=== PATIENT | female | born 1950 | race Two or more races ===

== ENCOUNTER → 2020-10-18 10:14 | Outpatient (BNVA) | payer OTHER, SELFPAY | PROVIDERS: PCP Internal Medicine; Visit Provider Hospitalist | DX: Z13.89 Encounter for screening for other disorder (principal) | CPT/HCPCS: Q3014 ==

== ENCOUNTER → 2020-12-17 09:46 | Outpatient (BNVA) | payer OTHER, SELFPAY | PROVIDERS: PCP Internal Medicine; Visit Provider Hospitalist | DX: J98.4 Other disorders of lung (principal); J45.40 Moderate persistent asthma, uncomplicated; U07.1 COVID-19 | CPT/HCPCS: 99212 ==

== ENCOUNTER → 2021-05-20 10:50 | Outpatient (BNVA) | payer OTHER, SELFPAY | PROVIDERS: PCP Internal Medicine; Visit Provider Hospitalist | DX: J98.4 Other disorders of lung (principal); J45.40 Moderate persistent asthma, uncomplicated; J98.6 Disorders of diaphragm; R91.8 Other nonspecific abnormal finding of lung field | CPT/HCPCS: 99212 ==

== ENCOUNTER 2021-07-25 11:10 | Outpatient (REF) | payer OTHER, SELFPAY ==
--- NOTE | ~2021-07-25 | XR_ITS ---
EXAMINATION: XR CHEST CLINICAL INFORMATION: Other nonspecific finding lung field COMPARISON: Previous chest CT November 2019 TECHNIQUE: 2 views of the chest were obtained. FINDINGS: The cardiac and mediastinal contours are stable. There is marked elevation of the right hemidiaphragm. There are prominent central bronchovascular markings. The lungs are otherwise clear. There is no pleural effusion or pneumothorax. There is scoliosis and multiple old mild compression fractures. XR/XR chest 2V IMPRESSION: Elevated right hemidiaphragm. Prominent central bronchovascular markings. This may be related to low lung volumes. Multiple mild old compression fractures.
== END 2021-07-25 11:11 | disposition home or self-care (01) ==
LOC: HO.XRAY 11:10
PROVIDERS: PCP Internal Medicine; Visit Provider Hospitalist
DX: J90 Pleural effusion, not elsewhere classified (principal); J98.4 Other disorders of lung; J45.40 Moderate persistent asthma, uncomplicated; J98.6 Disorders of diaphragm; J91.8 Pleural effusion in other conditions classified elsewhere; H60.90 Unspecified otitis externa, unspecified ear
CPT/HCPCS: 71046; 99212

== ENCOUNTER 2021-12-17 11:43 | Outpatient (REF) | payer OTHER, SELFPAY ==
--- NOTE | ~2021-12-17 | MM_ITS ---
EXAMINATION: BONE DENSITOMETRY CLINICAL INDICATION: Asymptomatic menopausal state. COMPARISON: Baseline BD dated 09/09/2019. TECHNIQUE: Using a [employer] DXA System (software version: 13.1) manufactured by [employer], dual-energy x-ray absorptiometry was performed of the lumbar spine and left hip. The images are of good technical quality. Summary results are attached. FINDINGS: AP SPINE L1-L4 (excluding L2 and L3): The data of L1-L4 has been changed to exclude the L2 and L3 vertebral bodies, because degenerative changes at these levels may cause overestimation of lumbar spine density. Current: BMD 0.795 g/cm2, Z-score -1.9, T-score -3.1, osteoporosis, 13.1% decrease from baseline (<5% change is not significant). Baseline: BMD 0.915 g/cm2. LEFT FEMUR, NECK: Current: BMD 0.571 g/cm2, Z-score -1.9, T-score -3.4, osteoporosis. Baseline: BMD 0.544 g/cm2. LEFT FEMUR, TOTAL: Current: BMD 0.675 g/cm2, Z-score -1.4, T-score -2.6, osteoporosis, 3.7% increase from baseline (<5% change is not significant). Baseline: BMD 0.651 g/cm2. IDENTIFIED RISK FACTORS: Rheumatoid arthritis, osteoporosis, renal, recurrent falls, secondary osteoporosis, history of fracture (adult), menopause. HISTORY OF FRACTURE: Wrist. MEDICATIONS: Calcium supplements or multivitamin, vitamin D. MM/XR DEXA axial skeleton IMPRESSION: 1. DIAGNOSIS: Osteoporosis based on the lowest T-score value of -3.4 in the applying World Health Organization criteria. 2. 10-YEAR FRACTURE RISK PREDICTION, FRAX: According to the guidelines, FRAX calculation should only be performed on patients in the osteopenia bone density category. Therefore, FRAX was not performed on this patient. 3. Treatment Recommendations: NOF guidelines recommend consideration for treatment in postmenopausal women and men age 50 and older presenting with the following: -A hip or vertebral (clinical or morphometric) fracture. -T-score less than or equal to -2.5 at the femoral neck or spine after appropriate evaluation to exclude secondary causes. -Low bone mass at the hip or spine and a 10-year fracture probability by FRAX of greater than or equal to 3% for hip fracture or greater than or equal to 20% for major osteoporotic fracture based on the [place] adapted WHO algorithm. 4. Other Recommendations: All treatment decisions require clinical judgment and consideration of individual patient factors, including patient preferences, comorbidities, previous drug use, risk factors not captured in the FRAX model (e.g. frailty, falls, vitamin D deficiency, increased bone turnover, interval significant decline in bone density) and possible under or overestimation of fracture risk by FRAX. Additional medical evaluation for secondary cause of low bone mineral density may be appropriate. FUTURE SCAN RECOMMENDATION: People with diagnosed cases of osteoporosis or at high risk for fracture should have regular bone mineral density tests. For patients eligible for Medicare, routine testing is allowed once every 2 years. The testing frequency can be increased to one year for patients who have rapidly progressing disease, those who are receiving or discontinuing medical therapy to restore bone mass, or have additional risk factors.
--- NOTE | ~2021-12-17 | MM_ITS ---
EXAMINATION: MM SCREENING DIGITAL BREAST TOMOSYNTHESIS, BILATERAL CLINICAL INFORMATION: Screening. Asymptomatic. The lifetime risk of breast cancer based on the Tyrer-Cuzick Model is under 2%. COMPARISON: Mammography: 09/14/2019, 09/01/2019 (new baseline). TECHNIQUE: Digital breast tomosynthesis is performed in both the craniocaudal and mediolateral oblique views along with computer-aided detection (CAD). Synthesized 2D images are generated from the tomosynthesis. Additional exaggerated right CC, left CC, left MLO views are provided. FINDINGS: There are scattered areas of fibroglandular density (ACR BI-RADS breast composition Category b). There are no significant masses, abnormal calcifications, or other abnormalities. Parenchymal pattern is similar to prior exam. The axilla and skin contours are unremarkable. MM/MM tomosynthesis screening BI IMPRESSION: No mammographic evidence of malignancy. ASSESSMENT: BI-RADS 1: Negative RECOMMENDATION: Routine annual mammography screening. This patient's information was entered into a reminder system with a target due date for their next mammogram.
== END 2021-12-17 11:44 | disposition home or self-care (01) ==
LOC: HO.MAMMO 11:43
PROVIDERS: PCP Internal Medicine; Visit Provider Internal Medicine
DX: Z12.31 Encounter for screening mammogram for malignant neoplasm of breast (principal); Z13.820 Encounter for screening for osteoporosis; Z78.0 Asymptomatic menopausal state; M81.0 Age-related osteoporosis without current pathological fracture
CPT/HCPCS: 77063; 77067; 77080

== ENCOUNTER 2021-12-19 11:02 | Outpatient (REF) | payer OTHER, SELFPAY ==
[2021-12-19 12:09] LABS: ABG Refer to POC result
[2021-12-19 12:10] LABS: ABG Base Excess 7.1 mmol/L; ABG HCO3 32 mmol/L (22-26); ABG pCO2 47 mmHg (32-45); ABG pH 7.43 (7.35-7.45); ABG pO2 41 mmHg (83-108)
== END 2021-12-19 11:03 | disposition home or self-care (01) ==
LOC: HO.LAB 11:02
PROVIDERS: PCP Internal Medicine; Visit Provider Hospitalist
DX: J98.4 Other disorders of lung (principal); J44.9 Chronic obstructive pulmonary disease, unspecified; R91.8 Other nonspecific abnormal finding of lung field; J98.6 Disorders of diaphragm; J96.20 Acute and chronic respiratory failure, unspecified whether with hypoxia or hypercapnia; R07.82 Intercostal pain
CPT/HCPCS: 82803; 99212

== ENCOUNTER 2021-12-20 11:45 | Outpatient (REF) | payer OTHER, SELFPAY ==
--- NOTE | ~2021-12-20 | XR_ITS ---
EXAMINATION: XR CHEST CLINICAL INFORMATION: Acute on chronic respiratory failure COMPARISON: Chest x-ray 07/25/2021 TECHNIQUE: 2 views of the chest were obtained. FINDINGS: Cardiac silhouette is normal in size. Similar prominent asymmetric elevation of the right hemidiaphragm. There is no gross lobar consolidation. No pleural effusion or pneumothorax. Mild degenerative changes of the spine. A few mild compression deformities of the thoracic spine are again noted. XR/XR chest 2V IMPRESSION: Stable examination demonstrating no acute pulmonary pathology.
[2021-12-20 12:01] LABS: MANUAL DIFF FLAG NO
[2021-12-20 12:18] LABS: Basophils Percent Auto 0.4 % (0-2); Eosinophils Absolute Auto 0.1 X10*3/uL (0.0-0.4); Eosinophils Percent Auto 1.3 % (0-4); Hematocrit 36.9 % (37.0-47.0); Hemoglobin 12.5 g/dl (12.0-16.0); Imm Gran Abs Auto 0.01 X10*3/uL (0.00-0.03); Imm Gran Pct Auto 0.2 % (0.0-0.4); Lymphocytes Absolute Auto 1.1 X10*3/uL (1.2-4.9); Lymphocytes Percent Auto 21.3 % (20-40); Mean Corpuscular HGB Conc 33.9 g/dl (31.0-35.0); Mean Corpuscular Hemoglobin 28.8 pg (27.0-33.0); Mean Platelet Volume 12.8 fL (9.4-12.3); Monocytes Absolute Auto 0.5 X10*3/uL (0.1-1.2); Monocytes Percent Auto 8.8 % (2-11); Neutrophils Absolute Auto 3.6 x10*3/uL (2.0-8.3); Platelet Count 114 X10*3/uL (160-400); Red Blood Count 4.34 X10*6/uL (4.20-5.50); Red Cell Distribution Width 13.4 % (11.0-16.0); White Blood Count 5.3 X10*3/uL (4.8-10.8)
[2021-12-20 12:24] LABS: D Dimer High Sensitivity 158 NG/ML
[2021-12-20 12:42] LABS: Anion Gap 12 (12-20); Blood Urea Nitrogen 37 mg/dL (9-16); Calcium 10.3 mg/dL (8.4-10.2); Carbon Dioxide 33 mmol/L (22-29); Chloride 104 mmol/L (96-108); Estimated Glomerular Filt Rate 26; Glucose Random 170 mg/dL (60-115); Potassium 4.2 mmol/L (3.3-5.1); Sodium 145 mmol/L (135-145)
[2021-12-20 12:56] LABS: Erythrocyte Sedimentation Rate 6 MM/HR (0-20)
== END 2021-12-20 11:46 | disposition home or self-care (01) ==
LOC: HO.XRAY 11:45
PROVIDERS: PCP Internal Medicine; Visit Provider Hospitalist
DX: J96.20 Acute and chronic respiratory failure, unspecified whether with hypoxia or hypercapnia (principal)
CPT/HCPCS: 36415; 71046; 80048; 85025; 85379; 85652

== ENCOUNTER → 2022-04-24 11:05 | Outpatient (BNVA) | payer OTHER, SELFPAY | PROVIDERS: PCP Internal Medicine; Visit Provider Hospitalist | DX: J44.9 Chronic obstructive pulmonary disease, unspecified (principal); R51.9 Headache, unspecified; J98.4 Other disorders of lung; J98.6 Disorders of diaphragm; R91.8 Other nonspecific abnormal finding of lung field; G47.00 Insomnia, unspecified | CPT/HCPCS: 99212 ==

== ENCOUNTER 2022-05-09 14:07 | Outpatient (REF) | payer OTHER, SELFPAY ==
--- NOTE | ~2022-05-09 | US_ITS ---
EXAMINATION: US THYROID CLINICAL INFORMATION: Nontoxic multinodular goiter. COMPARISON: Ultrasound soft tissue head/neck thyroid dated 02/16/2020. TECHNIQUE: Linear transducer grayscale and color Doppler examination with attention to the region of the thyroid. FINDINGS: SIZE: Measurements of the thyroid lobes and nodules are given in sagittal, anteroposterior and transverse dimensions respectively. Right Thyroid Lobe: 3.8 x 1.7 x 1.4 cm, volume 4.7 mL. Previously 3.7 x 1.5 x 1.6 cm, volume 4.6 mL. Parenchyma: The gland echotexture is homogeneous. Thyroid vascularity is normal. Left Thyroid Lobe: 3.2 x 1.2 x 1.5 cm, volume 3.1 mL. Previously 3.0 x 1.0 x 1.5 cm, volume 2.4 mL. Parenchyma: The gland echotexture is homogeneous. Thyroid vascularity is normal. Isthmus: 0.2 cm in maximum AP dimension. Previously 0.3 cm. Estimated total number of nodules greater than or equal to 1 cm: 0. 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 Location: Left mid. Size: 0.7 x 0.5 x 0.7 cm, volume 0.13 mL. Previously: 0.6 x 0.4 x 0.5 cm, volume 0.06 mL. Nodule characteristics: Composition: Mixed cystic and solid (1). Echogenicity: Hypoechoic (2). Shape: Not taller than wide (0). Margins: Smooth (0). Echogenic Foci: None (0). ACR TI-RADS total points: 3 ACR TI-RADS category: 3 Significant change in size (>/= 20% in 2 dimensions and minimal increase of 2 mm or 50% or greater increase in volume): No Change in features: No Change in ACR TI-RADS risk category: No NODES: No lymphadenopathy is seen in the tissue surrounding the thyroid gland. US/US thyroid IMPRESSION: Small thyroid gland. Stable left thyroid nodule.. ACR TI-RADS RECOMMENDATION REFERENCE: Ultrasound-guided fine-needle aspiration, followup ultrasound, no further follow up. * TR1 (0 point) and TR 2 (2 points): No FNA or follow up * TR3 (3 points): FNA if more than or equal to 2.5 cm in maximum dimension, followup ultrasound in 1, 3 and 5 years if 1.5 to 2.4 cm in maximum dimension. * TR4 (4-6 points): FNA if more than or equal to 1.5 cm in maximum dimension, followup ultrasound in 1, 2, 3 and 5 years if 1 to 1.4 cm in maximum dimension. * TR5 (more than or equal to 7 points): FNA if more than or equal to 1 cm in maximum dimension, followup ultrasound every year for 5 years if 0.5 to 0.9 cm in maximum dimension. * TR3, TR4 or TR5 nodules that are below the size threshold for follow up receive no follow up.
== END 2022-05-09 14:08 | disposition home or self-care (01) ==
LOC: HO.US 14:07
PROVIDERS: Visit Provider Internal Medicine Endocrinology, Diabetes & Metabolism
DX: E04.2 Nontoxic multinodular goiter (principal)
CPT/HCPCS: 76536

== ENCOUNTER 2022-05-16 11:27 | Outpatient (REF) | payer OTHER, SELFPAY ==
[2022-05-16 13:20] LABS: Free T4 (Free Thyroxine) 0.92 ng/dL (0.71-1.85); Thyroid Stimulating Hormone 1.38 uIU/mL (0.32-4.0)
== END 2022-05-16 11:28 | disposition home or self-care (01) ==
LOC: HO.LAB 11:27
PROVIDERS: Visit Provider Internal Medicine Endocrinology, Diabetes & Metabolism
DX: E04.2 Nontoxic multinodular goiter (principal)
CPT/HCPCS: 36415; 84439; 84443

== ENCOUNTER → 2022-05-20 09:35 | Outpatient (BNVA) | payer OTHER, SELFPAY | PROVIDERS: PCP Internal Medicine; Visit Provider Internal Medicine Endocrinology, Diabetes & Metabolism | DX: E04.1 Nontoxic single thyroid nodule (principal) | CPT/HCPCS: 99212 ==

== ENCOUNTER 2022-06-27 12:15 | Outpatient (REF) | payer OTHER, SELFPAY ==
--- NOTE | ~2022-06-27 | XR_ITS ---
EXAMINATION: XR RIBS, RIGHT CLINICAL INFORMATION: Pleurodynia COMPARISON: None TECHNIQUE: 3 views of the right ribs were obtained. FINDINGS: Lungs are clear. No consolidation, pneumothorax, or pleural effusion. The cardiomediastinal silhouette and pulmonary vasculature are normal. Osseous structures are unremarkable. Ribs are intact. No fractures are identified. XR/XR ribs RT min 3V w CXR1V IMPRESSION: Unremarkable examination.
--- NOTE | ~2022-06-27 | XR_ITS ---
EXAMINATION: XR FOREARM, RIGHT CLINICAL INFORMATION: Right forearm pain COMPARISON: None TECHNIQUE: AP and lateral views of the right forearm were obtained. FINDINGS: The bones and soft tissues are normal. No fracture. Imaged portions of the elbow and wrist are unremarkable. XR/XR forearm RT 2V IMPRESSION: Normal right forearm.
--- NOTE | ~2022-06-27 | XR_ITS ---
EXAMINATION: XR KNEE, LEFT CLINICAL INFORMATION: Pain COMPARISON: None TECHNIQUE: Four views of the left knee. FINDINGS: Tiny tricompartmental osteophytes. No acute fracture or dislocation. No large suprapatellar effusion. XR/XR knee LT 4V IMPRESSION: Mild osteoarthritis of the left knee joint.
== END 2022-06-27 12:16 | disposition home or self-care (01) ==
LOC: HO.XRAY 12:15
PROVIDERS: Absent Provider Internal Medicine; PCP Internal Medicine; Visit Provider Emergency Medicine
DX: M25.562 Pain in left knee (principal); M79.631 Pain in right forearm; R07.81 Pleurodynia
CPT/HCPCS: 71101; 73090; 73564

== ENCOUNTER → 2022-11-10 10:51 | Outpatient (BNVA) | payer OTHER, SELFPAY | PROVIDERS: PCP Internal Medicine; Visit Provider Hospitalist | DX: J98.4 Other disorders of lung (principal); J98.6 Disorders of diaphragm; J44.9 Chronic obstructive pulmonary disease, unspecified; R91.8 Other nonspecific abnormal finding of lung field; G47.00 Insomnia, unspecified | CPT/HCPCS: 99212 ==

== ENCOUNTER 2022-11-21 10:53 | Outpatient (REF) | payer OTHER, SELFPAY ==
--- NOTE | ~2022-11-21 | CT_ITS ---
EXAMINATION: CT CHEST WITHOUT CONTRAST CLINICAL INFORMATION: Abnormal chest radiograph. COMPARISON: Chest radiograph dated 07/07/2022; CT chest dated 11/21/2019. TECHNIQUE: Multidetector volumetric CT imaging of the chest was done. Axial MIP volume rendering provided. Sagittal and coronal reformatted images were obtained. This CT examination was performed using dose optimization techniques as appropriate, variously including the following: *Automated exposure control *Adjustment of mA and/or kV according to patient size (this includes techniques or standardized protocols for targeted exams where dose is matched to indication/reason for exam; i.e. extremities or head) *Use of iterative reconstruction technique DLP: 192 mGy-cm FINDINGS: DUMP GRADER: There is marked elevation of the right hemidiaphragm. The lungs are symmetrically well-expanded and grossly clear. LUNGS: Within the bilateral lungs, best appreciated on the MIP sequence, there are a few small scattered 1-2 mm noncalcified and calcified nodules. These are most pronounced at the posterior bases. The appearance is stable from 11/21/2019. No new nodule, mass, infiltrate or groundglass opacity is seen. There is mild linear scar/subsegmental atelectasis seen within the right upper and lower lobes and at the lateral right base. There is no associated focal airway obstruction. This appearance is also stable from 11/21/2019. No generalized small airway thickening is seen. The central airways appear patent. MEDIASTINUM: The mediastinum is normal. CORONARY ARTERY CALCIFICATION: Very mild. PLEURA: There is no pleural effusion. No pleural mass or thickening. AXILLA: No lymphadenopathy. UPPER ABDOMEN: The adrenal glands are unremarkable. The right kidney again shows persistent lobulations. OSSEOUS STRUCTURES: There is multi-level lower thoracic and upper lumbar degenerative disc disease and spondylosis. A stable mild T12 anterior wedge compression fracture is seen. There are stable sclerotic bone islands within the T12 vertebral body. No acute or aggressive osseous abnormality is seen. CT/CT chest wo IV con IMPRESSION: There is stable marked elevation of the right hemidiaphragm. There are stable scattered foci of scar/subsegmental atelectasis without associated focal airway obstruction. Benign, stable scattered bilateral tiny calcified and noncalcified lung granulomas are seen. No mass, infiltrate or groundglass opacity is seen. There is no thoracic lymphadenopathy or pleural effusion. No aggressive osseous lesion is seen. Fleischner guidelines were followed.
== END 2022-11-21 10:54 | disposition home or self-care (01) ==
LOC: HO.CT 10:53
PROVIDERS: PCP Internal Medicine; Visit Provider Hospitalist
DX: J98.6 Disorders of diaphragm (principal); J98.4 Other disorders of lung; R93.89 Abnormal findings on diagnostic imaging of other specified body structures
CPT/HCPCS: 71250

== ENCOUNTER 2023-02-18 14:00 | Outpatient (RCR) | payer OTHER, SELFPAY ==
[2023-01-30 10:02] VITALS: O2SAT 92
--- NOTE | 2023-01-30 14:19 | MHC.PT.EP ---
[facility] [place] Office [place] Office [place] Office [address] [phone] F: [phone] F: [phone] F: [phone] F: [phone] Physical Therapy Plan of Care Date of Evaluation: Date of Surgery: Diagnosis: Acute pain of LEFT knee, osteoarthrits Assessment: Patient is a 72 y.o. guinean speaking female who is referred to PT by Dr. Suzanna Dao with Dx of acute LEFT knee pain, osteoarthritis. Patient also presents with multiple comorbididies of CKC stage 3, DMT2 with peripheral neuropathy, restrictive lung disease with asthma on supplemental oxygen (2L [place]), that will effect her participation in PT. He oxygen levels will be monitored while performing exercises. 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 Patient impairments include pain, weakness, limited ROM, antalgic gait. Patient current functional limitations are bend/squat, walking, steps (has 3 MACY with railings), sit to stand after prolonged sitting. Patient will benefit from skilled PT to address aforementioned impairments and functional limitations to preserve current capabilities and prevent deterioration of symptoms. Frequency and Duration: The patient will be seen 1x/week for 4 weeks Short Term Goals: 2 weeks Patient demonstrates consistency and independence with HEP to self manage symptoms. Intermediate Goals: 4 weeks Patient presents with increased L knee flexion 105 degrees to be able to perform sit to stand from low surface with arm rests. Patient presents with increased L knee extension strength 4+/5 to be able to ascned/descend 3 steps with railings. Treatment Plan: Modalities to reduce pain, spasms and effusion. Manual therapy to restore motion and function. Therapeutic exercise to improve strength and flexibility. Neuromuscular re-education for posture and balance. Therapeutic activities to return to functional activities of daily living. Electronically signed by: Blake Sanchez, PT, DPT Please sign and return to therapist. Thank you for your referral.
--- NOTE | 2023-04-21 14:01 | MHC.PT.DC ---
[facility] [place] Office [place] Office [place] Office [address]itha Nagy [address] [phone] F: [phone] F: [phone] F: [phone] F: [phone] Physical Therapy Discharge Report Diagnosis: Acute pain of LEFT knee, osteoarthrits Date of Surgery: Date of Evaluation: 01/30/23 Date of Discharge: 04/21/23 Treatments to Date: 3 Cancellations to Date: 1 No Shows to Date: 1 Discharge Status: Patient Elected to Stop Visit Non-compliance Discharge Summary: Patient was last seen for PT on 02/25/23, did not complete treatment because she s/o R hallux pain after she had toenail removed. She ceased attending PT on her own accord. She has independent HEP to manage her knee OA. Electronically signed by: Blake Sanchez, PT, DPT Please sign and return to therapist. Thank you for your referral.
== END 2023-04-21 14:02 | disposition home or self-care (01) ==
LOC: HO.PT 14:00
PROVIDERS: PCP Internal Medicine; Visit Provider Internal Medicine
DX: M25.562 Pain in left knee (principal)
CPT/HCPCS: 97110; 97163; 97535

== ENCOUNTER 2023-05-15 10:58 | Outpatient (AMB) | payer OTHER, SELFPAY ==
[2023-05-15 11:14] VITALS: PULSE 63; O2SAT 94; BMI 33.3
--- NOTE | 2023-05-15 11:14 | MHC.OFFVIS ---
Intake Vital Signs 05/15/23 11:14 Height 5 ft 2 in Weight 182 lb BMI 33.3 Pulse 63 Pulse Source Pulse Oximeter Pulse Oximetry (%) 94 Oxygen Delivery Method Room Air Comment 2 Liters Oxygen([employer]) Intake Visit Reasons: copd Button Clamper Required: No Allergies ampicillin Allergy (Severe, Verified 05/15/23 11:16) Rash and Hives aspirin Allergy (Severe, Verified 05/15/23 11:16) Rash and Hives clopidogrel [Plavix] Allergy (Severe, Verified 05/15/23 11:16) Rash and Hives PCN Allergy (Severe, Uncoded 05/15/23 11:16) Rash and Hives HPI HPI Comments History of Present Illness Details The patient is a 72-year-old woman with a known history of asthma in addition to hypertension. Apparently she has been getting dizziness and headaches. She was referred to the [facility] ED for further evaluation. There was back in August 2018. When she was there she was found to be hypoxic down to 81%. She was placed on oxygen. She is getting her oxygen through [facility]. She has been using the oxygen 24-7. She has been getting some dryness of her nose. We did review her x-ray that she had there with significantly elevated right hemidiaphragm. She is not aware of any injuries or surgeries to her thoracic area. She denies any falls or trauma to the right side. She denies choking or any difficulty with cough. The patient also had an echocardiogram which she was noted to have some trivial valvular disease in addition to hypertrophic left ventricle with diastolic dysfunction. She does have lower extremity edema. The patient did have pulmonary function studies recently demonstrating no obstruction in on a severe diffusion impairment. However, she was unable to perform lung volumes. She also underwent a sleep study demonstrating she has periodic limb movement and evidence of hypoxia but no evidence of any sleep apnea.The CT scan of the chest demonstrated a significantly elevated right hemidiaphragm suggesting either a paralyzed diaphragm or severed phrenic nerve. We did talk about potentially performing a sniff test in the near future once the COVID-19 virus resolved. In the meantime the patient is to continue taking walks and work on deep breathing exercises. She also has a thyroid nodule that was calcified in addition to other calcified nodular densities in other organs. She will follow-up with her primary care doctor. We did review again her sleep study and she is not qualify for CPAP therapy which is also good. However, she does have periodic leg movement and does need oxygen supplementation. 12/17/2020 the patient is here for pulmonary follow-up visit. Overall the patient has been doing better. She continues to use the oxygen on 2 L continuous 24 hours today. 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 However after many months she has not heard anything from the [employer] company. A good result to the incomplete myself and they will make arrangements soon in order to test her for the pulsed valve. The patient continues with recurrent respiratory therapy which appears to be effective for. She has not required any prednisone or antibiotics. She did recover from COVID-19. She is hopefully getting the vaccine sometime in January once she completes 3 months from her initial illness. 05/20/2021 the patient is here for a pulmonary follow-up visit. Since we last spoke the patient was admitted to the hospital with altered mental status. She was found to be significant Hypoglycemic. During that evaluation the patient did have a repeat chest x-ray demonstrating persistent elevations of the right hemidiaphragm in addition to that airspace disease. This is resulting worsening respiratory symptoms. She continues to have shortness of breath specially when she lays flat symptoms to worsen. She does continue with the oxygen at 2 L. She is wondering about getting a portable oxygen concentrator. She did have testing before which limited her axis to conserving device. Will really request a repeat conserving device in view of her request. 07/25/2021 the patient is here for a pulmonary follow-up visit. The patient overall has been feeling better. The oxygen therapy has been affecting beneficial. She is doing better with the smaller conserving device oxygen tanks. The patient continues to use her Symbicort. Although, she says she did not use it regularly. I did recommend that she use it Twice a day to help with her respiratory capacity. The patient did have an abnormal chest x-ray during our last visit back in May. Will have her have a repeat chest x-ray at this time. If her x-ray continues to be abnormal then will request a CT scan of the chest. The patient does have lower extremity edema. We talked about the importance of compression stockings and keeping them elevated. Otherwise the patient is doing well she will follow-up in 6-8 months. Again if her x-ray is abnormal I will add a known to have a CT scan of the chest. 12/19/2021 the patient is here for a pulmonary follow-up visit. She is here with her daughter. Apparently she had been traveling to [place] and she was with family for. At time. She recently arrived and her daughter noticed that she had been increasingly more confused. She also has been more drowsy. She has been using her oxygen at 2 L. She did have blood work sometime ago demonstrating elevated bicarb level. Therefore based on her history of obstructive airway disease and chronic respiratory failure we had her undergo a blood gas. Patient had a normal acid-base status. However her pCO2 was slightly elevated at 47 mmHg in addition to a critically low partial pressure of oxygen of 42 mmHg. This is significantly low. This appears to have been a arterial stick. Good having mixed with some venous still potentially could explain the symptoms of altered mental status. I did call the daughter and asked her to increase the oxygen to 4 L. She will go for blood work including a D-dimer to assess for risk of blood clots. Her last chest x-ray was from 2020 demonstrating an elevated hemidiaphragm. She was supposed to have a sniff study but she did not have it. I will have her get a chest x-ray when she comes in for the blood work as well. 04/24/2022 the patient is here for a pulmonary follow-up visit. She is doing a lot better from a respiratory status. Her oxygenation has been much better. We had increased her oxygen flow due to a very low PE able to when her blood gas. But she seems to be doing a lot better. On 4 L pulse she is up to 99%. Therefore we took her off the oxygen and she was able to maintain around 90% pulse ox. Then she was ambulated in desaturated down to 88% on room air. On 2 L pulse she was able to stay up to 94% in therefore the patient is seems to be doing better overall. The patient on has a hard time with oxygen tanks even with a conserving valve. The hard for her to handle and cumbersome. The patient does not have the ability of good portability outside of the home due to her elements in her inability to handle the oxygen tank. Therefore, I will request a battery operated portable oxygen concentrator for her specially since she is doing better and only needs 2 L pulse. She does complaint of a headache mainly in the back. She has been evaluated by Neurology. She feels a pulsating sensation. She has a hard time sleeping. She is using gabapentin but only 100 mg. Therefore will increase that dose 300 mg to help with her sleeping hopefully help his with headaches. She continues use her respiratory therapy with good effect. 11/10/2022 the patient is here for a pulmonary follow-up visit. The patient overall has been feeling better. She is using the oxygen with good response. She did not qualify for the POC because she really does not need the house that much. Still, she is getting benefit from the oxygen supplementation. I did request that she can take off her oxygen at rest and check her oxygen numbers. If they are above 92% she can take a break from the oxygen supplementation. She we did review her last chest x-ray that she had back in June 2023 after a fall demonstrating persistent elevation of the right hemidiaphragm significantly. This chest x-ray continues to be abnormal. The question is that she has any airway obstructions therefore the only way of finding out is to do a CT scan to assess the abnormal chest x-ray. Will follow-up with a CT scan at this time. She continues use respiratory meds with good effect. 05/15/2023 the patient is here for a pulmonary follow-up visit. Overall the patient has been doing relatively well. She continues use the oxygen with good effect. The patient still having issues at nighttime with sleep. She is been on 300 mg of gabapentin. Will go ahead and increase it slightly to 400 mg. she should take it 1 hour before sleep. The patient also had a CT scan of the chest which we personally reviewed from back in November 2022. the patient does have a significantly elevated diaphragm and some evidence of atelectasis and calcified pulmonary nodules. Otherwise no other additional CT scans warranted. She continues use her respiratory medications. She does have shortness of breath with activity. [id number] severity. The inhalers are effective in beneficial. She will continue them at this time. The oxygen also has been affecting beneficial and she will also continue it. [facility] Medical History (Updated 05/17/23 @ 22:20 by Rip Louie MD) Abnormal chest x-ray Thyroid nodule Frequent headaches Insomnia Asthma-COPD overlap syndrome Abnormality of lung on CXR Elevated diaphragm Pleural effusion Asthma Restrictive lung disease Surgical History (Updated 05/20/22 @ 09:46 by MAT Finley) History of surgery History of carpal tunnel surgery History of hysterectomy History of inguinal hernia repair Family History (Updated 05/20/22 @ 09:49 by MAT Finley) Mother No problems noted. Father No problems noted. Social History (Updated 05/20/22 @ 09:50 by MAT Finley) Alcohol intake: never Patient Tobacco Use Status: Never used Tobacco Review of Systems Const Reports difficulty sleeping, Reports fatigue and Denies night sweats ENT Denies change in voice, Denies lip swelling, Denies mouth pain and Denies tongue swelling Card Denies chest pain and Reports dyspnea on exertion Resp Reports cough and Reports dyspnea on exertion GI Denies abdominal pain Musc Denies no additional complaints Neuro Denies confusion Psych Denies no additional complaints and Denies confusion Endo Reports fatigue Lee/Lymph Denies easy bleeding and Denies lymphadenopathy Aller/Immun Denies lip swelling and Denies tongue swelling Physical Exam Vital Signs: Last Vital Signs Pulse 63 05/15/23 11:14 Pulse Ox 94 05/15/23 11:14 Oxygen Delivery Method Room Air 05/15/23 11:14 BMI result Body Mass Index 33.3 Const General: No confusion Orientation/consciousness: No confusion Neck Neck: Yes normal visual inspection, Yes full ROM and Yes no lymphadenopathy Chest Chest palpation & inspection: normal inspection of the chest and tenderness rib, pectoral muscle, costochondral junction and costal cartilage Breast/axilla inspection: abnormal inspection of the axilla (tender) Resp Auscultation: no crackles, no rales, no rhonchi, no wheezes and diminished lung sounds Cardio Rate: regular rate Rhythm: regular rhythm Heart sounds: S1 normal heart sound present and S2 normal heart sound present GI Palpation (GI): Soft to palpation and nontender Auscultation: normal bowel sounds Skin General skin exam: rashes and/or lesions noted Neuro General: No confusion Results Reviewed Results Reviewed: [address] [address] [address] Scan Report Signed Patient: Aminata Shaver MR#: [id number] : 1950 Acct:[id number] Age/Sex: 72 / F ADM Date: 11/21/22 Loc: HO.CT Attending Dr: Rip Louie MD Ordering Physician: Rip Louie MD Date of Service: 11/21/22 Procedure(s): CT chest wo IV con Accession Number(s): [id number] cc: Rip Louie MD~ EXAMINATION: CT CHEST WITHOUT CONTRAST CLINICAL INFORMATION: Abnormal chest radiograph. COMPARISON: Chest radiograph dated 07/07/2022; CT chest dated 11/21/2019. TECHNIQUE: Multidetector volumetric CT imaging of the chest was done. Axial MIP volume rendering provided. Sagittal and coronal reformatted images were obtained. This CT examination was performed using dose optimization techniques as appropriate, variously including the following: *Automated exposure control *Adjustment of mA and/or kV according to patient size (this includes techniques or standardized protocols for targeted exams where dose is matched to indication/reason for exam; i.e. extremities or head) *Use of iterative reconstruction technique DLP: 192 mGy-cm FINDINGS: FUEL QUALITY TECH: There is marked elevation of the right hemidiaphragm. The lungs are symmetrically well-expanded and grossly clear. LUNGS: Within the bilateral lungs, best appreciated on the MIP sequence, there are a few small scattered 1-2 mm noncalcified and calcified nodules. These are most pronounced at the posterior bases. The appearance is stable from 11/21/2019. No new nodule, mass, infiltrate or groundglass opacity is seen. There is mild linear scar/subsegmental atelectasis seen within the right upper and lower lobes and at the lateral right base. There is no associated focal airway obstruction. This appearance is also stable from 11/21/2019. No generalized small airway thickening is seen. The central airways appear patent. MEDIASTINUM: The mediastinum is normal. CORONARY ARTERY CALCIFICATION: Very mild. PLEURA: There is no pleural effusion. No pleural mass or thickening. AXILLA: No lymphadenopathy. UPPER ABDOMEN: The adrenal glands are unremarkable. The right kidney again shows persistent lobulations. OSSEOUS STRUCTURES: There is multi-level lower thoracic and upper lumbar degenerative disc disease and spondylosis. A stable mild T12 anterior wedge compression fracture is seen. There are stable sclerotic bone islands within the T12 vertebral body. No acute or aggressive osseous abnormality is seen. CT/CT chest wo IV con IMPRESSION: There is stable marked elevation of the right hemidiaphragm. There are stable scattered foci of scar/subsegmental atelectasis without associated focal airway obstruction. Benign, stable scattered bilateral tiny calcified and noncalcified lung granulomas are seen. No mass, infiltrate or groundglass opacity is seen. There is no thoracic lymphadenopathy or pleural effusion. No aggressive osseous lesion is seen. Fleischner guidelines were followed. Dictated By: Perry Marti MD Signed By: <Electronically signed by Perry Marti MD in OV> 12/02/22 1116 DD/ 1118 TD/TT: Spa Associate: EDDY Assessment & Plan Assessment & Plan (1) Restrictive lung disease: Code(s): J98.4 - Other disorders of lung (2) Elevated diaphragm: Code(s): J98.6 - Disorders of diaphragm (3) Abnormality of lung on CXR: Code(s): R91.8 - Other nonspecific abnormal finding of lung field (4) Asthma-COPD overlap syndrome: Code(s): J44.9 - Chronic obstructive pulmonary disease, unspecified (5) Insomnia: Code(s): G47.00 - Insomnia, unspecified Qualifiers: Insomnia type: primary Qualified Code(s): F51.01 - Primary insomnia Plan Continue Symbicort BID oxygen 2 Liters/pulse with activity and 2L with sleep SHEY as needed increase gabapentin 400 mg p.o. q.h.s. Follow up 6 months Medications: New albuterol sulfate 2.5 mg (3 mL) inhalation BID 30 days 90 mL 11RF J44.9 - Chronic obstructive pulmonary disease, unspecified gabapentin 400 mg PO BEDTIME 30 days 30 caps 7RF Changed From albuterol sulfate 90 mcg/actuation inhalation To albuterol sulfate 90 mcg/actuation 1 puff inhalation Q6H PRN 8.5 grams 11RF shortness of breath or wheezing From budesonide-formoterol 160-4.5 mcg/actuation (Symbicort) 2 puffs inhalation BID 90 days 3 ea 1RF J98.4 - Other disorders of lung To budesonide-formoterol 160-4.5 mcg/actuation (Symbicort) 2 puffs inhalation BID 30 days 1 ea 11RF J98.4 - Other disorders of lung Coding Level of Care Code Est Pt Level 4 (45877) Diagnoses Restrictive lung disease J98.4 Elevated diaphragm J98.6 Abnormality of lung on CXR R91.8 Asthma-COPD overlap syndrome J44.9 Primary insomnia F51.01 Insomnia type: primary Time Spent (min) 17
== END 2023-05-15 11:38 | disposition home or self-care (01) ==
PROVIDERS: PCP Internal Medicine; Visit Provider Hospitalist
DX: J98.4 Other disorders of lung (principal); J98.6 Disorders of diaphragm; R91.8 Other nonspecific abnormal finding of lung field; J44.9 Chronic obstructive pulmonary disease, unspecified; F51.01 Primary insomnia
CPT/HCPCS: 99214

== ENCOUNTER → 2023-05-15 10:58 | Outpatient (BNVA) | payer OTHER, SELFPAY | PROVIDERS: Visit Provider Hospitalist | DX: J44.9 Chronic obstructive pulmonary disease, unspecified (principal); J98.4 Other disorders of lung; J98.6 Disorders of diaphragm; R91.8 Other nonspecific abnormal finding of lung field; F51.01 Primary insomnia; Z79.899 Other long term (current) drug therapy | CPT/HCPCS: 99212 ==

== ENCOUNTER 2023-09-24 13:20 | Outpatient (REF) | payer OTHER, SELFPAY ==
--- NOTE | ~2023-09-24 | US_ITS ---
EXAMINATION: US THYROID CLINICAL INFORMATION: Thyroid nodule followup. COMPARISON: Thyroid ultrasound 05/09/2022 and 02/16/2020. TECHNIQUE: Linear transducer grayscale and color Doppler examination with attention to the region of the thyroid. FINDINGS: SIZE: Measurements of the thyroid lobes and nodules are given in sagittal, anteroposterior and transverse dimensions respectively. Right Thyroid Lobe: 4.5 x 1.7 x 1.7 cm, volume 6.7 mL. Previously 3.8 x 1.7 x 1.4 cm, volume 4.7 mL. Parenchyma: The gland echotexture is homogeneous. Thyroid vascularity is normal. Left Thyroid Lobe: 4.0 x 1.6 x 1.4 cm, volume 4.9 mL. Previously 3.2 x 1.2 x 1.5 cm, volume 3.1 mL. Parenchyma: The gland echotexture is homogeneous. Thyroid vascularity is normal. Isthmus: 0.3 cm in maximum AP dimension. Previously 0.2 cm. Estimated total number of nodules greater than or equal to 1 cm: 0. Cutter Brake Lining nodules are described as follows: 1. Location: Right mid. Size: 0.5 x 0.5 x 0.5 cm, volume 0.07 mL. Previously: Not documented on the previous study. Nodule characteristics: Composition: Solid (2). Echogenicity: Isoechoic (1). Shape: Not taller than wide (0). Margins: Ill-defined (0). Echogenic Foci: None (0). ACR TI-RADS total points: 3 ACR TI-RADS category: 3 2. Location: Left inferior. Size: 0.8 x 0.7 x 0.6 cm, volume 0.18 mL. Previously: 0.7 x 0.5 x 0.7 cm, volume 0.13 mL. Nodule characteristics: Composition: Mixed cystic and solid (1). Echogenicity: Hypoechoic (2). Shape: Not taller than wide (0). Margins: Smooth (0). Echogenic Foci: None (0). ACR TI-RADS total points: 3 Previous: 3 ACR TI-RADS category: 3 Previous: 3 Significant change in size (>/= 20% in 2 dimensions and minimal increase of 2 mm or 50% or greater increase in volume): No Change in features: No Change in ACR TI-RADS risk category: No NODES: No lymphadenopathy is seen in the tissue surrounding the thyroid gland. US/US thyroid IMPRESSION: Subcentimeter TR 3 thyroid nodules one new from prior which do not meet criteria for follow-up.. ACR TI-RADS RECOMMENDATION REFERENCE: Ultrasound-guided fine-needle aspiration, follow up ultrasound, no further followup. * TR1 (0 point) and TR2 (2 points): No FNA or followup * TR3 (3 points): FNA if more than or equal to 2.5 cm in maximum dimension, follow up ultrasound in 1, 3 and 5 years if 1.5 to 2.4 cm in maximum dimension. * TR4 (4-6 points): FNA if more than or equal to 1.5 cm in maximum dimension, follow up ultrasound in 1, 2, 3 and 5 years if 1 to 1.4 cm in maximum dimension. * TR5 (more than or equal to 7 points): FNA if more than or equal to 1 cm in maximum dimension, follow up ultrasound every year for 5 years if 0.5 to 0.9 cm in maximum dimension. * TR3, TR4 or TR5 nodules that are below the size threshold for follow up receive no followup.
== END 2023-09-24 13:21 | disposition home or self-care (01) ==
LOC: HO.US 13:20
PROVIDERS: PCP Internal Medicine; Visit Provider Internal Medicine
DX: E04.1 Nontoxic single thyroid nodule (principal)
CPT/HCPCS: 76536

== ENCOUNTER 2023-10-14 10:13 | Outpatient (AMB) | payer OTHER, SELFPAY ==
[2023-10-14 11:24] VITALS: BP 140/68; PULSE 67; BMI 32.2
--- NOTE | 2023-10-14 11:24 | A.OFFVIS_ITS ---
Intake Vital Signs 10/14/23 11:24 Height 5 ft 2 in Weight 176 lb BMI 32.2 BP 140/68 H Blood Pressure Location Rt brachial Position Sitting Pulse 67 Intake Visit Reasons: Incontinence of feces with fecal urgency Intake Note: Patient referred by PCP Dr. Dao for incontinence of feces with fecal urgency. Patient c/o: irregular BM. At times diarrhea and normal. 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 Reason for referral is stated as fecal incontinence however daughter and Bentley accompanying the patient states that that issue has resolved. She is unsure why she has been referred to Gastroenterology office. She mentions that patient has been demonstrating memory lapses in confusion behaviors, for which she would like to have further investigation. She does not report any gastrointestinal issues to include abdominal pain, change in appetite, change in bowel habits. Daughter reports that at some point they were referred to [facility] for colorectal cancer screening but that was deferred due overall health. [facility] Medical History Abnormal chest x-ray Thyroid nodule Frequent headaches Insomnia Asthma-COPD overlap syndrome Abnormality of lung on CXR Elevated diaphragm Pleural effusion Asthma Restrictive lung disease Surgical History History of surgery History of carpal tunnel surgery History of hysterectomy History of inguinal hernia repair Family History Mother No problems noted. Father No problems noted. Social History Alcohol intake: never Patient Tobacco Use Status: Never used Tobacco Review of Systems Const All systems reviewed & are unremarkable except as noted in HPI and below Physical Exam Vital Signs: Last Vital Signs Pulse 67 10/14/23 11:24 BP 140/68 H 10/14/23 11:24 BMI result Body Mass Index 32.2 Frail elderly female Nasal cannula in place, but no overt respiratory distress Abdomen, soft, nontender Ambulates with assistance Assessment & Plan Assessment & Plan (1) Asthma-COPD overlap syndrome: Code(s): J44.9 - Chronic obstructive pulmonary disease, unspecified (2) Acute and chronic respiratory failure: Code(s): J96.20 - Acute and chronic respiratory failure, unspecified whether with hypoxia or hypercapnia (3) Frailty syndrome in geriatric patient: Code(s): R54 - Age-related physical debility (4) Encounter for colorectal cancer screening: Code(s): Z12.11 - Encounter for screening for malignant neoplasm of colon; Z12.12 - Encounter for screening for malignant neoplasm of rectum Plan That are reports resolution of fecal incontinence. Similarly, she reports that if previously been recommended to not pursue colonoscopy for colorectal cancer screening due to her health. This is reasonable, and we would continue to defer at this time given her underlying pulmonary issues and frailty. Daughter has many concerns regarding patient's cognitive impairment and behavioral disturbances, for which she was recommended to discuss with her primary care provider and/or seek a director of medical staff services consultation. Follow-up p.r.n. in GI office Coding Level of Care Code New Pt Level 3 (87758) Diagnoses Asthma-COPD overlap syndrome J44.9 Acute and chronic respiratory failure J96.20 Frailty syndrome in geriatric patient R54 Encounter for colorectal cancer screening Z12.11; Z12.12
== END 2023-10-14 11:58 | disposition home or self-care (01) ==
PROVIDERS: PCP Internal Medicine; Visit Provider Internal Medicine
DX: J44.9 Chronic obstructive pulmonary disease, unspecified (principal); J96.20 Acute and chronic respiratory failure, unspecified whether with hypoxia or hypercapnia; R54 Age-related physical debility; Z12.11 Encounter for screening for malignant neoplasm of colon; Z12.12 Encounter for screening for malignant neoplasm of rectum
CPT/HCPCS: 99203

== ENCOUNTER → 2023-10-14 10:13 | Outpatient (BNVA) | payer OTHER, SELFPAY | PROVIDERS: PCP Internal Medicine; Visit Provider Internal Medicine | DX: Z12.11 Encounter for screening for malignant neoplasm of colon (principal); Z12.12 Encounter for screening for malignant neoplasm of rectum; J44.9 Chronic obstructive pulmonary disease, unspecified; J96.20 Acute and chronic respiratory failure, unspecified whether with hypoxia or hypercapnia; R54 Age-related physical debility | CPT/HCPCS: 99202 ==

== ENCOUNTER 2023-12-07 12:51 | Outpatient (AMB) | payer OTHER, SELFPAY ==
[2023-12-07 13:41] VITALS: PULSE 63; O2SAT 94; BMI 31.5
--- NOTE | 2023-12-07 13:41 | MHC.OFFVIS ---
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 Apparently she has been getting dizziness and headaches. She was referred to the [facility] ED for further evaluation. There was back in August 2018. When she was there she was found to be hypoxic down to 81%. She was placed on oxygen. She is getting her oxygen through [facility]. She has been using the oxygen 24-7. She has been getting some dryness of her nose. We did review her x-ray that she had there with significantly elevated right hemidiaphragm. She is not aware of any injuries or surgeries to her thoracic area. She denies any falls or trauma to the right side. She denies choking or any difficulty with cough. The patient also had an echocardiogram which she was noted to have some trivial valvular disease in addition to hypertrophic left ventricle with diastolic dysfunction. She does have lower extremity edema. The patient did have pulmonary function studies recently demonstrating no obstruction in on a severe diffusion impairment. However, she was unable to perform lung volumes. She also underwent a sleep study demonstrating she has periodic limb movement and evidence of hypoxia but no evidence of any sleep apnea.The CT scan of the chest demonstrated a significantly elevated right hemidiaphragm suggesting either a paralyzed diaphragm or severed phrenic nerve. We did talk about potentially performing a sniff test in the near future once the COVID-19 virus resolved. In the meantime the patient is to continue taking walks and work on deep breathing exercises. She also has a thyroid nodule that was calcified in addition to other calcified nodular densities in other organs. She will follow-up with her primary care doctor. We did review again her sleep study and she is not qualify for CPAP therapy which is also good. However, she does have periodic leg movement and does need oxygen supplementation. 12/17/2020 the patient is here for pulmonary follow-up visit. Overall the patient has been doing better. She continues to use the oxygen on 2 L continuous 24 hours today. 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 However after many months she has not heard anything from the [employer]. A good result to the incomplete myself and they will make arrangements soon in order to test her for the pulsed valve. The patient continues with recurrent respiratory therapy which appears to be effective for. She has not required any prednisone or antibiotics. She did recover from COVID-19. She is hopefully getting the vaccine sometime in January once she completes 3 months from her initial illness. 05/20/2021 the patient is here for a pulmonary follow-up visit. Since we last spoke the patient was admitted to the hospital with altered mental status. She was found to be significant Hypoglycemic. During that evaluation the patient did have a repeat chest x-ray demonstrating persistent elevations of the right hemidiaphragm in addition to that airspace disease. This is resulting worsening respiratory symptoms. She continues to have shortness of breath specially when she lays flat symptoms to worsen. She does continue with the oxygen at 2 L. She is wondering about getting a portable oxygen concentrator. She did have testing before which limited her axis to conserving device. Will really request a repeat conserving device in view of her request. 07/25/2021 the patient is here for a pulmonary follow-up visit. The patient overall has been feeling better. The oxygen therapy has been affecting beneficial. She is doing better with the smaller conserving device oxygen tanks. The patient continues to use her Symbicort. Although, she says she did not use it regularly. I did recommend that she use it Twice a day to help with her respiratory capacity. The patient did have an abnormal chest x-ray during our last visit back in May. Will have her have a repeat chest x-ray at this time. If her x-ray continues to be abnormal then will request a CT scan of the chest. The patient does have lower extremity edema. We talked about the importance of compression stockings and keeping them elevated. Otherwise the patient is doing well she will follow-up in 6-8 months. Again if her x-ray is abnormal I will add a known to have a CT scan of the chest. 12/19/2021 the patient is here for a pulmonary follow-up visit. She is here with her daughter. Apparently she had been traveling to [place] and she was with family for. At time. She recently arrived and her daughter noticed that she had been increasingly more confused. She also has been more drowsy. She has been using her oxygen at 2 L. She did have blood work sometime ago demonstrating elevated bicarb level. Therefore based on her history of obstructive airway disease and chronic respiratory failure we had her undergo a blood gas. Patient had a normal acid-base status. However her pCO2 was slightly elevated at 47 mmHg in addition to a critically low partial pressure of oxygen of 42 mmHg. This is significantly low. This appears to have been a arterial stick. Good having mixed with some venous still potentially could explain the symptoms of altered mental status. I did call the daughter and asked her to increase the oxygen to 4 L. She will go for blood work including a D-dimer to assess for risk of blood clots. Her last chest x-ray was from 2020 demonstrating an elevated hemidiaphragm. She was supposed to have a sniff study but she did not have it. I will have her get a chest x-ray when she comes in for the blood work as well. 04/24/2022 the patient is here for a pulmonary follow-up visit. She is doing a lot better from a respiratory status. Her oxygenation has been much better. We had increased her oxygen flow due to a very low PE able to when her blood gas. But she seems to be doing a lot better. On 4 L pulse she is up to 99%. Therefore we took her off the oxygen and she was able to maintain around 90% pulse ox. Then she was ambulated in desaturated down to 88% on room air. On 2 L pulse she was able to stay up to 94% in therefore the patient is seems to be doing better overall. The patient on has a hard time with oxygen tanks even with a conserving valve. The hard for her to handle and cumbersome. The patient does not have the ability of good portability outside of the home due to her elements in her inability to handle the oxygen tank. Therefore, I will request a battery operated portable oxygen concentrator for her specially since she is doing better and only needs 2 L pulse. She does complaint of a headache mainly in the back. She has been evaluated by Neurology. She feels a pulsating sensation. She has a hard time sleeping. She is using gabapentin but only 100 mg. Therefore will increase that dose 300 mg to help with her sleeping hopefully help his with headaches. She continues use her respiratory therapy with good effect. 11/10/2022 the patient is here for a pulmonary follow-up visit. The patient overall has been feeling better. She is using the oxygen with good response. She did not qualify for the POC because she really does not need the house that much. Still, she is getting benefit from the oxygen supplementation. I did request that she can take off her oxygen at rest and check her oxygen numbers. If they are above 92% she can take a break from the oxygen supplementation. She we did review her last chest x-ray that she had back in June 2023 after a fall demonstrating persistent elevation of the right hemidiaphragm significantly. This chest x-ray continues to be abnormal. The question is that she has any airway obstructions therefore the only way of finding out is to do a CT scan to assess the abnormal chest x-ray. Will follow-up with a CT scan at this time. She continues use respiratory meds with good effect. 05/15/2023 the patient is here for a pulmonary follow-up visit. Overall the patient has been doing relatively well. She continues use the oxygen with good effect. The patient still having issues at nighttime with sleep. She is been on 300 mg of gabapentin. Will go ahead and increase it slightly to 400 mg. she should take it 1 hour before sleep. The patient also had a CT scan of the chest which we personally reviewed from back in November 2022. the patient does have a significantly elevated diaphragm and some evidence of atelectasis and calcified pulmonary nodules. Otherwise no other additional CT scans warranted. She continues use her respiratory medications. She does have shortness of breath with activity. [id number] severity. The inhalers are effective in beneficial. She will continue them at this time. The oxygen also has been affecting beneficial and she will also continue it. 12/07/2023 the patient is here for a pulmonary follow-up visit. The patient has been doing well from a respiratory status. Has been using her inhalers as prescribed. She is getting worsening memory cognitive impairment. She does take medications for it. The family is concerned for underlying dementia. She will follow-up with her primary care doctor soon to make sure that her medications can be further optimized in view of the cognitive decline. From a respiratory status she is doing better with her sleep. Now she is on gabapentin and trazodone. The combination seems to be very effective for her. She is using the oxygen at 2 L with activity and with sleep/ At this time the patient does benefit the oxygen and she does require it. No recent imaging studies at this time. Her last CT scan was back 2022 demonstrating the atelectasis and pulmonary nodules. No additional imaging studies are warranted specially since she is doing well. If the patient is to develop worsening respiratory symptoms we can re-evaluate the need for further imaging studies then. [facility] Medical History Abnormal chest x-ray Thyroid nodule Frequent headaches Insomnia Asthma-COPD overlap syndrome Abnormality of lung on CXR Elevated diaphragm Pleural effusion Asthma Restrictive lung disease Surgical History History of surgery History of carpal tunnel surgery History of hysterectomy History of inguinal hernia repair Family History Mother No problems noted. Father No problems noted. Social History Alcohol intake: never Patient Tobacco Use Status: Never used Tobacco Review of Systems Const Reports difficulty sleeping, Reports fatigue and Denies night sweats ENT Denies change in voice, Denies lip swelling, Denies mouth pain and Denies tongue swelling Card Denies chest pain and Reports dyspnea on exertion Resp Reports cough and Reports dyspnea on exertion GI Denies abdominal pain Musc Denies no additional complaints Neuro Denies confusion and Reports memory loss Psych Denies no additional complaints, Denies confusion and Reports memory loss Endo Reports fatigue Lee/Lymph Denies easy bleeding and Denies lymphadenopathy Aller/Immun Denies lip swelling and Denies tongue swelling Physical Exam Vital Signs: Last Vital Signs Pulse 63 12/07/23 13:41 Pulse Ox 94 12/07/23 13:41 Oxygen Delivery Method Room Air 12/07/23 13:41 BMI result Body Mass Index 31.5 Const General: No confusion Orientation/consciousness: No confusion Neck Neck: Yes normal visual inspection, Yes full ROM and Yes no lymphadenopathy Chest Chest palpation & inspection: normal inspection of the chest and tenderness rib, pectoral muscle, costochondral junction and costal cartilage Breast/axilla inspection: abnormal inspection of the axilla (tender) Resp Auscultation: no crackles, no rales, no rhonchi, no wheezes and diminished lung sounds Cardio Rate: regular rate Rhythm: regular rhythm Heart sounds: S1 normal heart sound present and S2 normal heart sound present GI Palpation (GI): Soft to palpation and nontender Auscultation: normal bowel sounds Skin General skin exam: rashes and/or lesions noted Neuro General: No confusion Assessment & Plan Assessment & Plan (1) Restrictive lung disease: Code(s): J98.4 - Other disorders of lung (2) Elevated diaphragm: Code(s): J98.6 - Disorders of diaphragm (3) Abnormality of lung on CXR: Code(s): R91.8 - Other nonspecific abnormal finding of lung field (4) Asthma-COPD overlap syndrome: Code(s): J44.9 - Chronic obstructive pulmonary disease, unspecified (5) Insomnia: Code(s): G47.00 - Insomnia, unspecified Qualifiers: Insomnia type: primary Qualified Code(s): F51.01 - Primary insomnia Plan Continue Symbicort BID oxygen 2 Liters/pulse with activity and 2L with sleep SHEY as needed continue gabapentin 400 mg p.o. q.h.s. Follow up 8-12 months Coding Level of Care Code Est Pt Level 4 (50157) Diagnoses Restrictive lung disease J98.4 Elevated diaphragm J98.6 Abnormality of lung on CXR R91.8 Asthma-COPD overlap syndrome J44.9 Primary insomnia F51.01 Insomnia type: primary Time Spent (min) 16
== END 2023-12-07 14:05 | disposition home or self-care (01) ==
PROVIDERS: PCP Internal Medicine; Visit Provider Hospitalist
DX: J98.4 Other disorders of lung (principal); J98.6 Disorders of diaphragm; R91.8 Other nonspecific abnormal finding of lung field; J44.9 Chronic obstructive pulmonary disease, unspecified; F51.01 Primary insomnia
CPT/HCPCS: 99214

== ENCOUNTER → 2023-12-07 12:51 | Outpatient (BNVA) | payer OTHER, SELFPAY | PROVIDERS: PCP Internal Medicine; Visit Provider Hospitalist | DX: J98.4 Other disorders of lung (principal); J98.6 Disorders of diaphragm; J44.9 Chronic obstructive pulmonary disease, unspecified; F51.01 Primary insomnia | CPT/HCPCS: 99212 ==

== ENCOUNTER 2024-01-07 13:22 | Outpatient (REF) | payer OTHER, SELFPAY ==
[2024-01-07 13:53] LABS: Ammonia 29 umol/L (13-55)
[2024-01-07 14:57] LABS: Anion Gap 13 (12-20); Blood Urea Nitrogen 45 mg/dL (9-16); Calcium 10.9 mg/dL (8.4-10.2); Carbon Dioxide 37 mmol/L (22-29); Chloride 101 mmol/L (96-108); Estimated Glomerular Filt Rate 26; Glucose Random 111 mg/dL (60-115); Magnesium 2.3 mg/dL (1.6-2.6); Sodium 147 mmol/L (135-145)
[2024-01-07 15:53] LABS: Creatinine Urine 20.68 mg/dL; Microalbum/Creatinine Ratio Ur 48.3 ug/mg cr (<30)
== END 2024-01-07 13:23 | disposition home or self-care (01) ==
LOC: HO.LAB 13:22
PROVIDERS: PCP Internal Medicine; Visit Provider Internal Medicine
DX: E11.22 Type 2 diabetes mellitus with diabetic chronic kidney disease (principal); N18.30 Chronic kidney disease, stage 3 unspecified; R44.3 Hallucinations, unspecified; I67.89 Other cerebrovascular disease
CPT/HCPCS: 36415; 80048; 82043; 82140; 82570; 83735

== ENCOUNTER 2024-01-15 14:11 | Outpatient (REF) | payer OTHER, SELFPAY | END 2024-01-15 14:12 | disposition home or self-care (01) | LOC: HO.LNP 14:11 | PROVIDERS: Visit Provider Internal Medicine | DX: R44.3 Hallucinations, unspecified (principal) | CPT/HCPCS: 87177; 87209 ==

== ENCOUNTER 2024-08-11 13:14 | Outpatient (AMB) | payer OTHER, SELFPAY ==
[2024-08-11 13:34] VITALS: BP 126/74; PULSE 86; O2SAT 90; BMI 34.5
--- NOTE | 2024-08-11 13:34 | MHC.OFFVIS ---
Vital Signs 08/11/24 13:34 Height 5 ft 2 in Weight 188 lb 7.924 oz BMI 34.5 BP 126/74 Blood Pressure Location Rt brachial Position Sitting Pulse 86 Pulse Source Pulse Oximeter Pulse Oximetry (%) 90 L Oxygen Delivery Method Nasal Cannula Oxygen Flow Rate 2 Intake Visit Reasons: COPD Allergies ampicillin Allergy (Severe, Verified 08/11/24 13:39) Rash and Hives aspirin Allergy (Severe, Verified 08/11/24 13:39) Rash and Hives clopidogrel [Plavix] Allergy (Severe, Verified 08/11/24 13:39) Rash and Hives PCN Allergy (Severe, Uncoded 08/11/24 13:39) Rash and Hives HPI Comments Details: The patient is a 73-year-old woman with a known history of asthma in addition to hypertension. Apparently she has been getting dizziness and headaches. She was referred to the [facility] ED for further evaluation. There was back in August 2018. When she was there she was found to be hypoxic down to 81%. She was placed on oxygen. She is getting her oxygen through [facility]. She has been using the oxygen 24-7. She has been getting some dryness of her nose. We did review her x-ray that she had there with significantly elevated right hemidiaphragm. She is not aware of any injuries or surgeries to her thoracic area. She denies any falls or trauma to the right side. She denies choking or any difficulty with cough. The patient also had an echocardiogram which she was noted to have some trivial valvular disease in addition to hypertrophic left ventricle with diastolic dysfunction. She does have lower extremity edema. The patient did have pulmonary function studies recently demonstrating no obstruction in on a severe diffusion impairment. However, she was unable to perform lung volumes. She also underwent a sleep study demonstrating she has periodic limb movement and evidence of hypoxia but no evidence of any sleep apnea.The CT scan of the chest demonstrated a significantly elevated right hemidiaphragm suggesting either a paralyzed diaphragm or severed phrenic nerve. We did talk about potentially performing a sniff test in the near future once the COVID-19 virus resolved. In the meantime the patient is to continue taking walks and work on deep breathing exercises. She also has a thyroid nodule that was calcified in addition to other calcified nodular densities in other organs. She will follow-up with her primary care doctor. We did review again her sleep study and she is not qualify for CPAP therapy which is also good. However, she does have periodic leg movement and does need oxygen supplementation. 12/17/2020 the patient is here for pulmonary follow-up visit. Overall the patient has been doing better. She continues to use the oxygen on 2 L continuous 24 hours today. We had requested a conserving device draw 0 in order to get her a insole department worker turned toward last also longer. However after many months she has not heard anything from the [employer]. A good result to the incomplete myself and they will make arrangements soon in order to test her for the pulsed valve. The patient continues with recurrent respiratory therapy which appears to be effective for. She has not required any prednisone or antibiotics. She did recover from COVID-19. She is hopefully getting the vaccine sometime in January once she completes 3 months from her initial illness. 05/20/2021 the patient is here for a pulmonary follow-up visit. Since we last spoke the patient was admitted to the hospital with altered mental status. She was found to be significant Hypoglycemic. During that evaluation the patient did have a repeat chest x-ray demonstrating persistent elevations of the right hemidiaphragm in addition to that airspace disease. This is resulting worsening respiratory symptoms. She continues to have shortness of breath specially when she lays flat symptoms to worsen. She does continue with the oxygen at 2 L. She is wondering about getting a portable oxygen concentrator. She did have testing before which limited her axis to conserving device. Will really request a repeat conserving device in view of her request. 07/25/2021 the patient is here for a pulmonary follow-up visit. The patient overall has been feeling better. The oxygen therapy has been affecting beneficial. She is doing better with the smaller conserving device oxygen tanks. The patient continues to use her Symbicort. Although, she says she did not use it regularly. I did recommend that she use it Twice a day to help with her respiratory capacity. The patient did have an abnormal chest x-ray during our last visit back in May. Will have her have a repeat chest x-ray at this time. If her x-ray continues to be abnormal then will request a CT scan of the chest. The patient does have lower extremity edema. We talked about the importance of compression stockings and keeping them elevated. Otherwise the patient is doing well she will follow-up in 6-8 months. Again if her x-ray is abnormal I will add a known to have a CT scan of the chest. 12/19/2021 the patient is here for a pulmonary follow-up visit. She is here with her daughter. Apparently she had been traveling to [place] and she was with family for. At time. She recently arrived and her daughter noticed that she had been increasingly more confused. She also has been more drowsy. She has been using her oxygen at 2 L. She did have blood work sometime ago demonstrating elevated bicarb level. Therefore based on her history of obstructive airway disease and chronic respiratory failure we had her undergo a blood gas. Patient had a normal acid-base status. However her pCO2 was slightly elevated at 47 mmHg in addition to a critically low partial pressure of oxygen of 42 mmHg. This is significantly low. This appears to have been a arterial stick. Good having mixed with some venous still potentially could explain the symptoms of altered mental status. I did call the daughter and asked her to increase the oxygen to 4 L. She will go for blood work including a D-dimer to assess for risk of blood clots. Her last chest x-ray was from 2020 demonstrating an elevated hemidiaphragm. She was supposed to have a sniff study but she did not have it. I will have her get a chest x-ray when she comes in for the blood work as well. 04/24/2022 the patient is here for a pulmonary follow-up visit. She is doing a lot better from a respiratory status. Her oxygenation has been much better. We had increased her oxygen flow due to a very low PE able to when her blood gas. But she seems to be doing a lot better. On 4 L pulse she is up to 99%. Therefore we took her off the oxygen and she was able to maintain around 90% pulse ox. Then she was ambulated in desaturated down to 88% on room air. On 2 L pulse she was able to stay up to 94% in therefore the patient is seems to be doing better overall. The patient on has a hard time with oxygen tanks even with a conserving valve. The hard for her to handle and cumbersome. The patient does not have the ability of good portability outside of the home due to her elements in her inability to handle the oxygen tank. Therefore, I will request a battery operated portable oxygen concentrator for her specially since she is doing better and only needs 2 L pulse. She does complaint of a headache mainly in the back. She has been evaluated by Neurology. She feels a pulsating sensation. She has a hard time sleeping. She is using gabapentin but only 100 mg. Therefore will increase that dose 300 mg to help with her sleeping hopefully help his with headaches. She continues use her respiratory therapy with good effect. 11/10/2022 the patient is here for a pulmonary follow-up visit. The patient overall has been feeling better. She is using the oxygen with good response. She did not qualify for the POC because she really does not need the house that much. Still, she is getting benefit from the oxygen supplementation. I did request that she can take off her oxygen at rest and check her oxygen numbers. If they are above 92% she can take a break from the oxygen supplementation. She we did review her last chest x-ray that she had back in June 2023 after a fall demonstrating persistent elevation of the right hemidiaphragm significantly. This chest x-ray continues to be abnormal. The question is that she has any airway obstructions therefore the only way of finding out is to do a CT scan to assess the abnormal chest x-ray. Will follow-up with a CT scan at this time. She continues use respiratory meds with good effect. 05/15/2023 the patient is here for a pulmonary follow-up visit. Overall the patient has been doing relatively well. She continues use the oxygen with good effect. The patient still having issues at nighttime with sleep. She is been on 300 mg of gabapentin. Will go ahead and increase it slightly to 400 mg. she should take it 1 hour before sleep. The patient also had a CT scan of the chest which we personally reviewed from back in November 2022. the patient does have a significantly elevated diaphragm and some evidence of atelectasis and calcified pulmonary nodules. Otherwise no other additional CT scans warranted. She continues use her respiratory medications. She does have shortness of breath with activity. Rtlm-di-hwanucko severity. The inhalers are effective in beneficial. She will continue them at this time. The oxygen also has been affecting beneficial and she will also continue it. 12/07/2023 the patient is here for a pulmonary follow-up visit. The patient has been doing well from a respiratory status. Has been using her inhalers as prescribed. She is getting worsening memory cognitive impairment. She does take medications for it. The family is concerned for underlying dementia. She will follow-up with her primary care doctor soon to make sure that her medications can be further optimized in view of the cognitive decline. From a respiratory status she is doing better with her sleep. Now she is on gabapentin and trazodone. The combination seems to be very effective for her. She is using the oxygen at 2 L with activity and with sleep/ At this time the patient does benefit the oxygen and she does require it. No recent imaging studies at this time. Her last CT scan was back 2022 demonstrating the atelectasis and pulmonary nodules. No additional imaging studies are warranted specially since she is doing well. If the patient is to develop worsening respiratory symptoms we can re-evaluate the need for further imaging studies then. 08/11/2024 the patient is here for a pulmonary follow-up visit. The patient has multiple complaints. Her daughter though tells me that she is having issues with dementia and forgetfulness. She does complaint of a headache. This happened after having COVID. It affects mainly the sinuses area. She is not taking any allergy medicine her nasal sprays and I do think that she could at least give it a trial for a month and see if she gets any relief from any kind of sinus inflammation and tenderness. In addition to that she does complaint of right-sided chest discomfort. She does have an elevated right hemidiaphragm with minimal expansion of the right lung. Likely getting obstructed at times and resulting in the some discomfort. Initially we talked about some antibiotics with the patient right now is doing okay. If she were to worsen she can always call and I consider a course of doxycycline. For now the patient will work on deep breathing exercises I gave her an incentive spirometer that she can work with. The patient is also continue to use the oxygen. The oxygen therapy has been affecting beneficial. She will continue to use it regularly. She can take breaks when she is resting as long as the oxygens above 90%. Her last CT scan of the chest was back in 2022 demonstrating pulmonary nodules. Also the elevated hemidiaphragm on the right side with significant atelectasis. In view of her worsening and persistent symptoms will go ahead and request a repeat CT scan at this time. [facility] Medical History (Updated 08/11/24 @ 14:05 by Rip Louie MD) Pulmonary nodules Abnormal chest x-ray Thyroid nodule Frequent headaches Insomnia Asthma-COPD overlap syndrome Abnormality of lung on CXR Elevated diaphragm Pleural effusion Asthma Restrictive lung disease Surgical History History of surgery History of carpal tunnel surgery History of hysterectomy History of inguinal hernia repair Family History Mother No problems noted. Father No problems noted. Social History Alcohol intake: never Patient Tobacco Use Status: Never used Tobacco Review of Systems Const Reports difficulty sleeping, Reports fatigue, Reports headache(s) and Denies night sweats ENT Denies change in voice, Reports headache(s), Denies lip swelling, Denies mouth pain and Denies tongue swelling Card Denies chest pain and Reports dyspnea on exertion Resp Reports chest congestion, Reports cough and Reports dyspnea on exertion GI Denies abdominal pain Musc Denies no additional complaints Neuro Denies confusion, Reports headache(s) and Reports memory loss Psych Denies no additional complaints, Denies confusion and Reports memory loss Endo Reports fatigue Lee/Lymph Denies easy bleeding and Denies lymphadenopathy Aller/Immun Denies lip swelling and Denies tongue swelling Physical Exam Vital Signs: Last Vital Signs Pulse 86 08/11/24 13:34 BP 126/74 08/11/24 13:34 Pulse Ox 90 L 08/11/24 13:34 Oxygen Delivery Method Nasal Cannula 08/11/24 13:34 Oxygen Flow Rate 2 08/11/24 13:34 BMI result Body Mass Index 34.5 Const General: No confusion Orientation/consciousness: No confusion Neck Neck: Yes normal visual inspection, Yes full ROM and Yes no lymphadenopathy Chest Chest palpation & inspection: normal inspection of the chest Resp Auscultation: no crackles, no rales, no rhonchi, no wheezes and diminished lung sounds Cardio Rate: regular rate Rhythm: regular rhythm Heart sounds: S1 normal heart sound present and S2 normal heart sound present GI Palpation (GI): Soft to palpation and nontender Auscultation: normal bowel sounds Skin General skin exam: rashes and/or lesions noted Neuro General: No confusion Assessment & Plan Assessment & Plan (1) Restrictive lung disease: Code(s): J98.4 - Other disorders of lung Category: Medical (2) Elevated diaphragm: Code(s): J98.6 - Disorders of diaphragm Category: Medical (3) Abnormality of lung on CXR: Code(s): R91.8 - Other nonspecific abnormal finding of lung field Category: Medical (4) Asthma-COPD overlap syndrome: Code(s): J44.9 - Chronic obstructive pulmonary disease, unspecified Category: Medical (5) Insomnia: Code(s): G47.00 - Insomnia, unspecified Category: Medical Qualifiers: Insomnia type: primary Qualified Code(s): F51.01 - Primary insomnia (6) Pulmonary nodules: Code(s): R91.8 - Other nonspecific abnormal finding of lung field Category: Medical (7) Frequent headaches: Code(s): R51.9 - Headache, unspecified Category: Medical Plan Continue Symbicort BID oxygen 2 Liters/pulse with activity and 2L with sleep SHEY as needed continue gabapentin 400 mg p.o. q.h.s. sinus xray CT chest start Claritin start Fluticasone nasal spray Follow up 4-6 months Orders: Orders XR sinus min 3V Today R51.9 - Headache, unspecified CT chest wo IV con Today R91.8 - Other nonspecific abnormal finding of lung field Medications: New fluticasone propionate 50 mcg/actuation (Flonase Allergy Relief) administer into each nostril 2 sprays intranasal DAILY 15.8 mL 12RF 30 days loratadine (Claritin) 10 mg PO DAILY 30 tabs 11RF 30 days J30.2 - Other seasonal allergic rhinitis, J45.909 - Unspecified asthma, uncomplicated Coding Level of Care Code Est Pt Level 4 (46497) Complex EM visit Add On G2211 Diagnoses Restrictive lung disease J98.4 Elevated diaphragm J98.6 Abnormality of lung on CXR R91.8 Asthma-COPD overlap syndrome J44.9 Primary insomnia F51.01 Insomnia type: primary Pulmonary nodules R91.8 Frequent headaches R51.9 Time Spent (min) 17
== END 2024-08-11 14:14 | disposition home or self-care (01) ==
PROVIDERS: PCP Internal Medicine; Visit Provider Hospitalist
DX: J98.4 Other disorders of lung (principal); J98.6 Disorders of diaphragm; R91.8 Other nonspecific abnormal finding of lung field; J44.9 Chronic obstructive pulmonary disease, unspecified; F51.01 Primary insomnia; R51.9 Headache, unspecified
CPT/HCPCS: 99214; G2211

== ENCOUNTER → 2024-08-11 13:14 | Outpatient (BNVA) | payer OTHER, SELFPAY | PROVIDERS: PCP Internal Medicine; Visit Provider Hospitalist | DX: J44.9 Chronic obstructive pulmonary disease, unspecified (principal); J30.2 Other seasonal allergic rhinitis; J98.6 Disorders of diaphragm; J98.4 Other disorders of lung; R91.8 Other nonspecific abnormal finding of lung field; F51.01 Primary insomnia; R51.9 Headache, unspecified; Z99.81 Dependence on supplemental oxygen | CPT/HCPCS: 99212 ==

== ENCOUNTER 2024-09-22 16:31 | Outpatient (REF) | payer OTHER, SELFPAY ==
--- NOTE | ~2024-09-22 | CT_ITS ---
CLINICAL HISTORY: R91.8 - Other nonspecific abnormal finding of lung field CT chest without contrast Comparison: CT/SR - CT CHEST WO IV CON - 11/21/22 11:06 EDT Findings: No significant cardiomegaly. Trace pericardial effusion. No mediastinal adenopathy or suspicious thyroid lesion. Minimal atherosclerotic disease of the coronary arteries. Significant elevation of the right hemidiaphragm with prominent subjacent atelectasis, not appreciably changed. Few scattered stable sub 5 mm nodules. No new, increasing or suspicious nodule. No effusion. No pneumothorax. Visualized upper abdomen demonstrates no acute process. The right kidney is lobular with a small stable exophytic cysts. Impression: Stable chronic findings. No acute or suspicious abnormality. This document has been electronically signed by: Madi Glynn MD on 09/23/2024 17:18:08
--- NOTE | ~2024-09-22 | XR_ITS ---
EXAMINATION: XR SINUSES CLINICAL INFORMATION: R51.9 - Headache, unspecified COMPARISON: None available. TECHNIQUE: 3 views of the sinuses were obtained. FINDINGS: Poor pneumatization of the frontal sinuses. No gross air-fluid levels. No acute cortical disruption. No lytic or blastic lesions. Edentulous, maxilla and mandible. XR/XR sinus min 3V IMPRESSION: No acute paranasal sinus disease. Electronically signed by: Bruce Gil MD 09/23/2024 03:43 PM EST
== END 2024-09-22 16:32 | disposition home or self-care (01) ==
LOC: HO.CT 16:31
PROVIDERS: PCP Internal Medicine; Visit Provider Hospitalist
DX: R91.8 Other nonspecific abnormal finding of lung field (principal); R51.9 Headache, unspecified
CPT/HCPCS: 70220; 71250

== ENCOUNTER → 2024-09-22 16:32 | Outpatient (BNV) | payer OTHER, SELFPAY | PROVIDERS: PCP Internal Medicine; Visit Provider Radiology Diagnostic Radiology | DX: R91.8 Other nonspecific abnormal finding of lung field (principal); R51.9 Headache, unspecified | CPT/HCPCS: 70220; 71250 ==

== ENCOUNTER 2024-10-07 07:47 | Outpatient (REF) | payer OTHER, MEDICAID, SELFPAY ==
--- OUTSIDE RECORDS SUMMARY | 2024-10-07 07:51 | XMS_ITS | Encounter Summary ---
Author Organization [facility] Address [address] [place] [address] Phone Care Team Providers Care Furniture Upholsterer Apprentice Name Role Phone Suzanna Dao MD Primary Care Provider + [phone] Encounter Details Date Type Department Care Team (Late Contact Info) Description 09/16/2024 Telephone [facility] [address] [place] [phone] Debra Fuentes [address] [place] [phone] Social History Tobacco Use Types Packs/Day Years Used Date Smoking Tobacco: Never Smokeless Tobacco: Never Alcohol Use Standard Drinks/Week Comments No 0 (1 standard drink = 0.6 oz pur e alcohol) Comments Unknown Sex and Gender Information Value Date Recorded Sex Assigned at Not on file Legal Sex Female 4:55 PM EST Gender Identity Not on file Sexual Orientation Not on file documented as of this encounter Miscellaneous Notes * Telephone Encounter - Debra Fuentes - 09/16/2024 8:35 AM EST [facility] ([place] [phone]))called states this patient has not taken isosorbide since last November, if patient should still be on this medication they will need a new Rx. documented in this encounter Plan of Treatment Upcoming Encounters Date Type Department Care Team (Late st Contact Info) Description 11/23/2024 10:20 AM EDT Office Visit [facility] [address] [phone] Grey Prado MD [address] [phone] documented as of this encounter Visit Diagnoses Not on filedocumented in this encounter Care Teams Furniture Upholsterer Apprentice Relationship Specialty Start Date End Date Suzanna Dao MD [address] [place] [id number] PCP - General Internal Medicine 05/29/21 documented as of this encounter
--- OUTSIDE RECORDS SUMMARY | 2024-10-07 07:51 | XMS_ITS | Encounter Summary ---
Author Organization [facility] Address [address] [phone] Phone Care Team Providers Care Promotions Executive Name Role Phone Suzanna Dao MD Primary Care Provider + [phone] Encounter Details Date Type Department Care Team (Late st Contact Info) Description 09/19/2024 Office Communication [facility] [address] [phone] Kristopher Martinez [address] [phone] Social History Tobacco Use Types Packs/Day Years [...] encounter Miscellaneous Notes * Telephone Encounter - Kristopher Martinez - 09/19/2024 11:05 AM EST Pharmacy is aware documented in this encounter Plan of Treatment Upcoming Encounters Date Type Department Care Team (Late st Contact Info) Description 11/23/2024 10:20 AM EDT Office Visit [facility] [address] [phone] Grey Prado MD [address] [phone] documented as of this encounter Visit Diagnoses Not on filedocumented in this encounter Care Teams Promotions Executive Relationship Specialty Start Date End Date Suzanna Dao MD [address] [place] [id number] PCP - General Internal Medicine 05/29/21 documented as of this encounter
--- OUTSIDE RECORDS SUMMARY | 2024-10-07 07:51 | XMS_ITS | Encounter Summary ---
Author Organization [employer] Address [address], [place] [address] Care Team Providers Care Tool Crib Supervisor Name Role Phone Suzanna Dao MD Primary Care Provider + Reason for Visit * Reason Onset Date Comments FYI 10/01/2023 Encounter Details Date Type Department Care Team ([facility] st Contact Info) Description 10/01/2023 Telephone [facility] [address] [place], [place] [phone] Suzanna Dao MD [address] [place], [place] [phone] FYI Social History Tobacco Use Types Packs/Day Years Used Date Smoking Tobacco: Never Smokeless Tobacco: Never Alcohol Use Standard Drinks/Week Comments Never 0 (1 standard drink = 0.6 oz pur e alcohol) Housing Stability Answer Date Recorded What is your housing situation today? I have edgardkrysten nam 06/30/[address] you li ve. Do you have problems with any of the following? None of the above 06/30/2023 Food Insecurity Answer Date Recorded Within the past 12 months, y ou worried that your food would run out before you got money to buy more: Never True 06/30/2023 Within the past 12 months,th e food you bought just didn't last and you didn't have enough money to get more: Never True Transportation Answer Date Recorded In the past 12 months, has l ack of transportation kept you from medical appts, meetings, work or from getting things needed for daily living? Yes, it has kept me from medical appointments or getting medications. 06/14/2023 Utilities Answer Date Recorded In the past 12 months, has t he electric, gas, oil or water company threatened to shut off services in your home? No 06/30/2023 Depression Answer Date Recorded Patient Health Questionnaire-2 Score 2 12/04/2022 Comments Unknown Sex and Gender Information Value Date Recorded Sex Assigned at Female 07/07/2022 10:36 AM EDT Legal Sex Female 10:36 AM EDT Gender Identity Female 07/07/2022 10:36 AM EDT Sexual Orientation Straight 07/07/2022 10 :36 AM EDT documented as of this encounter Miscellaneous Notes * Telephone Encounter - Alvina Cary - 10/01/2023 1:44 PM EST [facility] [place] [facility] be [facility] today 10/01/2023 but hespoke with pt daughter Suzanna and are able to admit her tomorrow 10/02/2023 . documented in this encounter Plan of Treatment Upcoming Encounters Date Type Department Care Team (Late st Contact Info) Description 10/20/2024 11:00 AM EST Telemedicine [facility] [address] [place] [address] documented as of this encounter Visit Diagnoses Not on filedocumented in this encounter Care Teams Tool Crib Supervisor Relationship Specialty Start Date End Date Suzanna Dao MD [address] [place] [address] PCP - General Family Medicine 07/21/19 documented as of this encounter
--- OUTSIDE RECORDS SUMMARY | 2024-10-07 07:51 | XMS_ITS | Encounter Summary ---
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 I have edgard nam 12/30/[address] you li ve. Do you have problems with any of the following? None of the above 12/30/2023 Food Insecurity Answer Date Recorded Within the past 12 months, y ou worried that your food would run out before you got money to buy more: Never True 12/30/2023 Within the past 12 months,th e food you bought just didn't last and you didn't have enough money to get more: Never True Transportation Answer Date Recorded In the past 12 months, has l ack of transportation kept you from medical appts, meetings, work or from getting things needed for daily living? No 12/30/2023 Utilities Answer Date Recorded In the past 12 months, has t he electric, gas, oil or water company threatened to shut off services in your home? No 12/30/2023 Depression Answer Date Recorded Patient Health Questionnaire-2 Score 2 12/04/2022 Comments Unknown Sex and Gender Information Value Date Recorded Sex Assigned at Female 07/07/2022 10:36 AM EDT Legal Sex Female 10:36 AM EDT Gender Identity Female 07/07/2022 10:36 AM EDT Sexual Orientation Straight 07/07/2022 10 :36 AM EDT documented as of this encounter Plan of Treatment Upcoming Encounters Date Type Department Care Team (Late st Contact Info) Description 10/20/2024 11:00 AM EST Telemedicine [facility] MEDICINE [address] [place] [address] documented as of this encounter Visit Diagnoses Diagnosis 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
--- OUTSIDE RECORDS SUMMARY | 2024-10-07 07:51 | XMS_ITS | Encounter Summary ---
Author Organization [employer] Address [address] [place] [address] Care Team Providers Care Marble Mason Name Role Phone Suzanna Dao MD Primary Care Provider + Encounter Details Date Type Department Care Team ([facility] Contact Info) Description 12/24/2022 Orders Only [facility] MED & PEDS [address] [place] [phone] Vickie Patel LPN Social History Tobacco Use Types Packs/Day Years Used Date Smoking Tobacco: Never Smokeless Tobacco: Never Alcohol Use Standard Drinks/Week Comments Never 0 (1 standard drink = 0.6 oz pur e alcohol) Depression Answer Date Recorded Patient Health Questionnaire-2 Score 2 12/04/2022 Comments Unknown Sex and Gender Information Value Date Recorded Sex Assigned at Female 07/07/2022 10:36 AM EDT Legal Sex Female 10:36 AM EDT Gender Identity Female 07/07/2022 10:36 AM EDT Sexual Orientation Straight 07/07/2022 10 :36 AM EDT COVID-19 Exposure Response Date Recorded In the last 10 days, have yo u been in contact with someone who was confirmed or suspected to have Coronavirus/COVID-19? No / Unsure 12/04/2022 10:55 AM EDT documented as of this encounter Plan of Treatment Upcoming Encounters Date Type Department Care Team (Late Contact Info) Description 10/20/2024 11:00 AM EST Telemedicine [facility] MEDICINE [address] [place], [place] [phone] documented as of this encounter Visit Diagnoses Not on filedocumented in this encounter Care Teams Marble Mason Relationship Specialty Start Date End Date Suzanna Dao MD [address] [place] [address] PCP - General Family Medicine 07/21/19 documented as of this encounter
--- OUTSIDE RECORDS SUMMARY | 2024-10-07 07:51 | XMS_ITS | Encounter Summary ---
Author Organization [employer] Address [address] [place] [address] Care Team Providers Care Carrier Associate Name Role Phone Suzanna Dao MD Primary Care Provider + Encounter Details Date Type Department Care Team ([facility] Contact Info) Description 03/03/2023 Orders Only [facility] CH[facility] MED & PEDS [address] [place] [address] Vickie Patel LPN Social History Tobacco Use [...] Info) Description 10/20/2024 11:00 AM EST Telemedicine [facility] MEDICINE [address] [place], [place] [phone] documented as of this encounter Visit Diagnoses Not on filedocumented in this encounter Care Teams Carrier Associate Relationship Specialty Start Date End Date Suzanna Dao MD [address] [place], [place] [phone] PCP - General Family Medicine 07/21/19 documented as of this encounter
--- OUTSIDE RECORDS SUMMARY | 2024-10-07 07:51 | XMS_ITS | Encounter Summary ---
Author Organization [employer] Address [address] [facility] 7 [place] [address] Care Team Providers Care Packing Line Worker Name Role Phone Suzanna Dao MD Primary Care Provider + Reason for Visit * Reason Comments Med Refill Encounter Details Date Type Department Care Team ([facility] st Contact Info) Description 04/11/2024 Refill [facility] MEDICINE [address] [place], [place] [phone] Suzanna Dao MD [address] [place] [address] Social History Tobacco Use Types Packs/Day Years [...] t he electric, gas, oil or water [employer] threatened to shut off services in your [...] Info) Description 10/20/2024 11:00 AM EST Telemedicine [facility] MEDICINE [address] [place] [address] documented as of this encounter Visit Diagnoses Not on filedocumented in this encounter Care Teams Packing Line Worker Relationship Specialty Start Date End Date Suzanna Dao MD [address] [place] [address] PCP - General Family Medicine 07/21/19 documented as of this encounter
--- OUTSIDE RECORDS SUMMARY | 2024-10-07 07:52 | XMS_ITS | Encounter Summary ---
Author Organization [facility] Address [address] [facility] [address] [place] [address] Phone Care Team Providers Care Family Health Nurse Practitioner Name Role Phone Suzanna Dao MD Primary Care Provider + [phone] Encounter Details Date Type Department Care Team (Late Contact Info) Description 05/28/2022 Telephone [facility] [address] [facility] [address] [place] [phone] Gurwinder Durand, [address] [address] Social History Tobacco Use Types Packs/Day Years [...] encounter Miscellaneous Notes * Telephone Encounter - Shyanne Mota - 05/28/2022 2:33 PM EDT Pt called she needs a refill for dilTIAZem CD. Please send to [facility] Thank you documented in this encounter Plan of Treatment Upcoming Encounters Date Type Department Care Team (Late st Contact Info) Description 11/23/2024 10:20 AM EDT Office Visit [facility] [address] [facility] [address] [place] [phone] Grey Prado MD [address] [phone] documented as of this encounter Visit Diagnoses Not on filedocumented in this encounter Care Teams Family Health Nurse Practitioner Relationship Specialty Start Date End Date Suzanna Dao MD [address] [place] [address] PCP - General Internal Medicine 05/29/21 documented as of this encounter
--- OUTSIDE RECORDS SUMMARY | 2024-10-07 07:52 | XMS_ITS | Encounter Summary ---
Author Organization [facility] Address 100 [facility] 200 [place] [address] Phone Care Team Providers Care Sailing Master Name Role Phone Suzanna Dao MD Primary Care Provider + [phone] Reason for Visit * Reason Comments Med Refill Encounter Details Date Type Department Care Team (Late st Contact Info) Description 04/22/2022 Refill [facility] [address] [phone] Gurwinder Durand, DO [address] [place] [address] Social History Tobacco Use Types Packs/Day Years [...] on file documented as of this encounter Plan of Treatment Upcoming Encounters Date Type Department Care Team (Late st Contact Info) Description 11/23/2024 10:20 AM EDT Office Visit [facility] [address] [phone] Grey Prado MD [address] [phone] documented as of this encounter Visit Diagnoses Not on filedocumented in this encounter Care Teams Sailing Master Relationship Specialty Start Date End Date Suzanna Dao MD [address] [place] [address] PCP - General Internal Medicine 05/29/21 documented as of this encounter
--- OUTSIDE RECORDS SUMMARY | 2024-10-07 07:52 | XMS_ITS | Clinical Summary ---
Author Organization [facility] Address [address] [facility] [address] [place] [address] Phone Care Team Providers Care School Crossing Guard Name Role Phone Suzanna Dao MD Primary Care Provider + [phone] Allergies Active Allergy Reactions Criticality Noted Date Comments Aspirin Other (see comments) 11/28/2020 Clopidogrel Other (see comments) 11/28/2020 Penicillin G Sodium Other (see comments) 2020 Medications acetaminophen (TYLENOL) 325 MG tablet Take 1 tablet by mouth every 4 (four) hours Active albuterol HFA (PROVENTIL HFA;VENTOLIN HFA) 108 (90 Base) MCG/ACT inhaler 1 puff by Other route 4 (four) times a day Active amLODIPine (NORVASC) 10 MG tablet Take 1 tablet by mouth 1 (one) time each day Active atorvastatin (LIPITOR) 40 MG tablet Take 1 tablet by mouth 1 (one) time each day Active Symbicort 160-4.5 MCG/ACT inhaler 1 Active cetirizine (ZyrTEC) 10 MG tablet Take 1 tablet by mouth 1 (one) time each day Active cholecalciferol (VITAMIN D-3) 25 MCG (1000 UT) capsule Take 1 capsule by mouth 1 (one) time each day Active doxazosin XL (CARDURA XL) 8 MG 24 hr tablet 1 tablet every morning Active doxycycline (ADOXA) 100 MG tablet 1 Active gabapentin (NEURONTIN) 100 MG capsule Take 1 capsule by mouth 1 (one) time each day Active Melatonin 10 MG capsule Take 1 capsule by mouth at bed time Active memantine (NAMENDA) 5 MG tablet Take 1 tablet by mouth 1 (one) time each day 1 Active montelukast (SINGULAIR) 10 MG tablet Take 1 tablet by mouth 1 (one) time each day Active pentoxifylline (TRENtal) 400 MG CR tablet Take 1 tablet by mouth 2 (two) times a day Active sertraline (ZOLOFT) 50 MG tablet Take 200 mg by mouth 1 (one) time each day Active SITagliptin (JANUVIA) 25 MG tablet Take 1 tablet by mouth 1 (one) time each day Active mometasone-form oterol (Dulera) 200-5 MCG/ACT inhaler 2 puffs by Other route 2 (two) times a day Active glucose 4 g chewable tablet CHEW 1-2 TABLETS BY MOUTH EVERY 2-4 HOURS NEEDED HYPOGLYCEMIA SYMPTOMS 1 Active isosorbide mononitrate (IMDUR) 60 MG 24 hr tablet Take 1 tablet (60 mg total) by mouth 1 (one) time each day Do not crush or chew. 90 tablet 3 3 Active dilTIAZem CD (Cardizem CD) 240 MG 24 hr capsuleIndicati ons:Acute injury of kidney Take 1 capsule (240 mg total) by mouth 1 (one) time each day 90 capsule 3 3 Active hydrALAZINE 100 MG tabletIndicatio ns:Acute injury of kidney Take 1 tablet (100 mg total) by mouth in the morning and 1 tablet (100 mg total) in the evening and 1 tablet (100 mg total) before bedtime. 270 tablet 3 4 11/23/19 25 Active torsemide (DEMADEX) 20 MG tabletIndicatio ns:Stage 3a chronic kidney disease (HCC) Take 2 tablets (40 mg total) by mouth 1 (one) time each day 180 tablet 3 4 11/24/19 25 Active carvedilol (COREG) 25 MG tablet Take 1 tablet (25 mg total) by mouth in the morning and 1 tablet (25 mg total) in the evening. 180 tablet 3 4 05/10/20 25 Active alendronate (FOSAMAX) 70 MG tablet Take 1 tablet by mouth 1 (one) time per week 2 Active mirtazapine (REMERON) 15 MG tablet Take 15 mg by mouth every night 4 Active mirtazapine (REMERON) 7.5 MG tablet Take 7.5 mg by mouth at night if needed 4 Active nitroglycerin (NITROSTAT) 0.[address] 1 tablet under the tongue every 5 (five) minutes if needed 0 Active OLANZapine (ZyPREXA) 5 MG tablet Take 15 mg by mouth every night 4 Active famotidine (PEPCID) 20 MG tablet Take 1 tablet (20 mg total) by mouth 1 (one) time each day 30 tablet 3 4 Active Active Problems Problem Noted Date Diagnosed Date Emphysema 01/07/2024 Overview (05/23/2024): Last Assessment & Plan: Followed by cold header operator, she is O2 dependent, continue at 3L NC Overflow incontinence of urine 04/20/2023 Chronic diastolic heart failure 10/22/2022 09/21/2023 Dependence on supplemental oxygen 10/22/2022 09/21/2023 Overview (09/21/2023): Last Assessment & Plan: Pt has COPD and interstitial lung disease recommended pt to use supplemental oxygen for any activity including showering no change in medications and FU with pulmonlogist PCV 20 today Hypernatremia 10/22/2022 09/21/2023 Small vessel cerebrovascular disease 10/22/2022 09/21/2023 Restrictive lung disease 10/22/2022 Overview (11/23/2023): Last Assessment & Plan: F/u with pulmonology No change in medications Continue O2 at 2 liters NC Acute nontraumatic kidney injury 11/28/2020 Chronic kidney disease stage 3 11/28/2020 Hypertensive renal disease 11/28/2020 Hypertensive disorder 11/28/2020 Renal disorder due to type 2 diabetes mellitus 0 11/28/2020 Resolved Problems Problem Noted Date Diagnosed Date Resolved Date Acute nontraumatic kidney injury 11/28/2020 09/21/2023 Encounters Date Type Department Care Team Description 09/19/2024 Office Communication [facility] [address] [phone] Kristopher Martinez 09/16/2024 Telephone [facility] [address] [place] [phone] Debra Fuentes from Last 3 Months Family History Medical History Relation Comments Dementia Father Diabetes Father Diabetes Mother Gout Mother Hypertension Mother Stroke Mother Relation Status Comments Father Mother Social History Tobacco Use Types Packs/Day Years Used Date Smoking Tobacco: Never Smokeless Tobacco: Never Alcohol Use Standard Drinks/Week Comments No 0 (1 standard drink = 0.6 oz pur e alcohol) Comments Unknown Sex and Gender Information Value Date Recorded Sex Assigned at Not on file Legal Sex Female 4:55 PM EST Gender Identity Not on file Sexual Orientation Not on file Last Filed Vital Signs Vital Sign Reading Time Taken Comments Blood Pressure 161/74 05/23/2024 9:45 AM EDT Pulse 66 05/23/2024 9:45 AM EDT Temperature - - Respiratory Rate - - Oxygen Saturation 93% 05/23/2024 9:45 AM EDT 2 liters Inhaled Oxygen Concentration - - Weight 82.3 kg (181 lb 6.4 oz) 05/23/2024 9:45 A M EDT Height 157.5 cm (5' 2 ) 05/23/2024 9:45 AM EDT Body Mass Index 33.18 05/23/2024 9:45 AM EDT Plan of Treatment Upcoming Encounters Date Type Department Care Team (Late st Contact Info) Description 11/23/2024 10:20 AM EDT Office Visit [facility] [address] [phone] Grey Prado MD [address] [phone] Health Maintenance Due Date Last Done Comments Breast Cancer Screening 1948 Colorectal Cancer Screening: Annual FOBT 1997 Colorectal Cancer Screening: Colonoscopy 1997 Colorectal Cancer Screening: Sigmoidoscopy 1997 Diabetes: Ophthalmology Exam 10/08/2020 Diabetes: Pedal Pulse Checked 10/08/2020 Diabetes: Sensory Foot Exam 10/08/2020 Diabetes: Visual Foot Exam 10/08/2020 Diabetes: Hemoglobin A1C 12/13/2024 025, 08/05/2023, 05/13/2021, Additional history exists Pneumococcal Vaccine: 65+ Years Completed 01/02/2023, 07/12/2019 Influenza Vaccine Completed 09/14/2024, , 07/12/2019 Hepatitis B Vaccine Aged Out No longe r eligible based on patient's age to complete this topic Procedures Procedure Name Priority Date/Time Associated Diagnosis Comments EXT RESULT ENTRY Routine 05/13/2021 from Last 3 Months or Most Recently Relevant to Health Maintenance Results * (ABNORMAL) EXT RESULT ENTRY (05/13/2021) WBC 6.3 3.3 - 10.0 10*3/ML Red Blood Cell Count 4.14 Hemoglobin 11.9(A) 12.0 - 16.0 Hematocrit 35.6(A) 36.0 - 46.0 Platelets 104(A) 150 - 399 10*3/UL MCV 86.0 82.0 - 108.0 Sodium 147 137 - 147 Potassium 4.4 3.4 - 5.5 Chloride 106 99 - 108 Bicarbonate (CO2) 33(A) 22 - 30 mmol/L Anion Gap 8 <=30 MMOL/L BUN 38(A) 4 - 21 mg/dL Creatinine 1.80(A) 0.50 - 1.10 mg/dL eGFR Non-Afr Egyptian 28 eGFR 32 Hemoglobin A1C 5.1 4.0 - 6.0 05/13/2021 us Historical Provider LAB BLOOD ORDERABLES Jocelyn l Result from Last 3 Months or Most Recently Relevant to Health Maintenance Insurance [employer] DUAL MCR/ROSAMARIA ([id number]) DUAL MCR/ROSAMARIA ([id number]) Care Teams School Crossing Guard Relationship Specialty Start Date End Date Suzanna Dao MD [address] [place] [id number] PCP - General Internal Medicine 05/29/21
--- OUTSIDE RECORDS SUMMARY | 2024-10-07 07:52 | XMS_ITS | Clinical Summary ---
Author Organization [facility] Address [address] [place] [address] Care Team Providers Care Beading Sawyer Name Role Phone Unavailable Primary Care Provider Unavailabl e Social History Tobacco Use Types Packs/Day Years Used Date Smoking Tobacco: Never Assessed Sex and Gender Information Value Date Recorded Sex Assigned at Not on file Gender Identity Not on file Sexual Orientation Not on file Plan of Treatment Health Maintenance Due Date Last Done Comments DTaP,Tdap,and Td Vaccines (1 - Tdap) 1967 Zoster Vaccines (1 of 2) 1998 Pneumococcal Vaccine: 65+ Ye ars (1 of 1 - PCV) 2013 RSV Immunization Patients 60 + Years Old (1 - 1-dose 75+ series) 2023 COVID-19 Vaccine ( - 2023-2 5 season) 2024 Influenza Vaccine (#1) 2024 HIB Vaccines Aged Out No longer eligi ble based on patient's age to complete this topic HPV Vaccines Aged Out No longer eligi ble based on patient's age to complete this topic Hepatitis A Vaccines Aged Out No long er eligible based on patient's age to complete this topic Hepatitis B Vaccines Aged Out No long er eligible based on patient's age to complete this topic IPV Vaccines Aged Out No longer eligi ble based on patient's age to complete this topic MMR Vaccines Aged Out No longer eligi ble based on patient's age to complete this topic Meningococcal ACWY Vaccine Aged Out N o longer eligible based on patient's age to complete this topic RSV Immunization Patients Un danisha 20 months Aged Out No longer eligible b ased on patient's age to complete this topic Varicella Vaccines Aged Out No longer eligible based on patient's age to complete this topic
--- OUTSIDE RECORDS SUMMARY | 2024-10-07 07:52 | XMS_ITS | Encounter Summary ---
Author Organization [employer] Address [address] [place] [address] 7 [place] [address] Care Team Providers Care Business Systems Architect Name Role Phone Suzanna Dao MD Primary Care Provider + Reason for Visit * Reason Onset Date Comments Durable Medical Equipment 09/30/2024 Incont inence Supplies Encounter Details Date Type Department Care Team ([facility] st Contact Info) Description 09/30/2024 Telephone [facility] MEDICINE [address] [place], [place] [phone] Suzanna Dao MD [address] [place], [place] [phone] Durable Medical Equipment (Incontinence Supplies) Social History Tobacco Use Types Packs/Day Years [...] Recorded Patient Health Questionnaire-2 Score 2 12/04/2022 Internet Access Answer Date Recorded Internet Access Q1 Yes 09/08/2024 Internet Access Q2 Not on file 09/08/2024 Comments No Sex and Gender Information Value Date Recorded Sex Assigned at Female 07/07/2022 10:36 AM EDT Legal Sex Female 10:36 AM EDT Gender Identity Female 07/07/2022 10:36 AM EDT Sexual Orientation Straight 07/07/2022 10 :36 AM EDT documented as of this encounter Miscellaneous Notes * Telephone Encounter - Xochilt Louie - 10/03/2024 10:35 AM EST DME RX for Diapers/pull ups , Under Pads, Gloves and Wipes generated and placed on providers desk for signature. * Telephone Encounter - Freeman Meyer - 09/30/2024 1:06 PM EST Tc from daughter requesting Pull-Ups size Large Bed pads , gloves size M , wipes. documented in this encounter Plan of Treatment Upcoming Encounters Date Type Department Care Team (Late st Contact Info) Description 10/20/2024 11:00 AM EST Telemedicine [facility] MEDICINE [address] [place] [address] documented as of this encounter Visit Diagnoses Not on filedocumented in this encounter Care Teams Business Systems Architect Relationship Specialty Start Date End Date Suzanna Dao MD [address] [place] [address] PCP - General Family Medicine 07/21/19 documented as of this encounter
--- OUTSIDE RECORDS SUMMARY | 2024-10-07 07:52 | XMS_ITS | Encounter Summary ---
Author Organization [employer] Address [address] [place] [address] Care Team Providers Care Chief Inspector Name Role Phone Suzanna Dao MD Primary Care Provider + Reason for Visit * Reason Onset Date Comments Med Refill 11/20/2023 Encounter Details Date Type Department Care Team ([facility] st Contact Info) Description 11/20/2023 Refill [facility] MEDICINE [address] [place], [place] [phone] Marysol Dior MD [address] [place] [address] Social History Tobacco Use Types Packs/Day Years Used Date Smoking Tobacco: Never Smokeless Tobacco: Never Alcohol Use Standard Drinks/Week Comments Never 0 (1 standard drink = 0.6 oz pur e alcohol) Housing Stability Answer Date Recorded What is your housing situation today? I have edgard viv 06/30/[address] you li [...] Info) Description 10/20/2024 11:00 AM EST Telemedicine [facility] MEDICINE [address] [place] [address] documented as of this encounter Visit Diagnoses Not on filedocumented in this encounter Care Teams Chief Inspector Relationship Specialty Start Date End Date Suzanna Dao MD [address] [place] [address] PCP - General Family Medicine 07/21/19 documented as of this encounter
--- OUTSIDE RECORDS SUMMARY | 2024-10-07 07:52 | XMS_ITS | Clinical Summary ---
Author Organization [employer] Address [address] [place] [address] 7 [place] [address] Care Team Providers Care Dairy Department Manager Name Role Phone Suzanna Dao MD Primary Care Provider + Allergies Active Allergy Reactions Criticality Noted Date Comments Aspirin 12/30/2019 Clopidogrel 12/30/2019 Penicillin G 12/30/2019 Medications albuterol (2.5 MG/3ML) 0.083% nebulizer solution inhale 3 milliliter by nebulization route 3 times every day prn SOB/asthma 020 Active nitroglycerin (Nitrostat) 0.[address] 1 tablet under the tongue. 020 Active budesonide-for moterol (Symbicort) 160-4.5 MCG/ACT inhaler Inhale 2 puffs every 12 (twelve) hours. 021 Active carvedilol (Coreg) 25 MG tablet Take 25 mg by mouth 2 times daily. 023 Active hydrALAZINE (Apresoline) 100 MG tablet Take 1 tablet by mouth 3 times daily. 023 Active torsemide (Demadex) 20 MG tablet TAKE 2 TABLETS BY MOUTH ONCE DAILY 023 Active albuterol 108 (90 Base) MCG/ACT inhaler INHALE 1 PUFF BY MOUTH EVERY 6 HOURS NEEDED SHORTNESS OF BREATH OR FOR WHEEZING 023 Active famotidine (Pepcid) 20 MG tablet Take 1 tablet by mouth in the morning. 023 Active gabapentin (Neurontin) 400 MG capsule Take 1 capsule by mouth at bedtime. Active sertraline (Zoloft) 100 MG tablet Take 2 tablets by mouth 1 (one) time each day. Active polyvinyl alcohol (Liquifilm Tears) 1.4 % ophthalmic solution PLACE 1 DROP INTO THE AFFECTED EYE(S) THREE TIMES DAILY NEEDED FOR DRYNESS OR IRRITATION 15 mL Active atorvastatin (Lipitor) 40 MG tablet TAKE 1 TABLET BY MOUTH EVERY DAY 90 tablet 3 Active montelukast (Singulair) 10 MG tablet TAKE 1 TABLET BY MOUTH DAILY IN THE EVENING 90 tablet Active Januvia 25 MG tablet TAKE 1 TABLET BY MOUTH EVERY DAY 90 tablet Active Lancets (OneTouch Delica Plus [id number]) misc Apply 1 each topically 2 times daily. 100 each Active amLODIPine (Norvasc) 10 MG tablet Take 1 tablet (10 mg) by mouth Once per day. 90 tablet Active cholecalcifero l (Vitamin D High Potency) 25 MCG (1000 UT) capsule Take 1 capsule (25 mcg) by mouth Once per day. 90 capsule 3 024 2024 Active OneTouch Ultra test strip TEST BLOOD SUGAR TWICE DAILY 100 strip Active pentoxifylline (Trental) 400 MG ER tablet Take 1 tablet (400 mg) by mouth with breakfast and with evening meal. Do not crush, chew, or split. 60 tablet 5 2024 Active memantine (Namenda) 5 MG tabletIndicati ons: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) Take 1 tablet (5 mg) by mouth in the morning. 30 tablet Active acetaminophen (Acetaminophen 8 Hour) 650 MG ER tablet Take 1 tablet (650 mg) by mouth every 8 (eight) hours if needed for mild pain. Do not crush, chew, or split. 90 tablet 1 025 2024 Active fluticasone (Flonase) 50 MCG/ACT nasal spray Administer 2 sprays into each nostril Once per day. Active loratadine (Claritin) 10 MG tablet Take 1 tablet by mouth Once per day. Active mirtazapine (Remeron) 15 MG tablet Take 15 mg by mouth if needed at bedtime. Active OLANZapine (ZyPREXA) 5 MG tablet Take 0.5 tablets by mouth 2 times daily. For hallucinations Active propranolol (Inderal) 10 MG tablet Take 1 tablet by mouth 2 times daily. Active alendronate (Fosamax) 70 MG tablet Take 1 tablet by mouth once a week. 022 2024 Discontinued(M ed list cleanup (will not trigger notification to Pharmacy)) melatonin 10 MG tablet 1 tab po/hs 019 2024 Discontinued(M ed list cleanup (will not trigger notification to Pharmacy)) isosorbide mononitrate ER (Imdur) 60 MG 24 hr tablet Take 60 mg by mouth in the morning. 023 2024 Discontinued(M ed list cleanup (will not trigger notification to Pharmacy)) acetaminophen (Tylenol) 500 MG tablet Take 1 tablet by mouth every 6 (six) hours. 022 2024 Discontinued(I neffective) traZODone (Desyrel) 50 MG tablet Take 1 tablet by mouth at bedtime. 023 2024 Discontinued(I neffective) Active Problems Problem Noted Date Diagnosed Date Pulmonary emphysema, unspecified emphysema type 01/07/2024 Assessment & Plan (09/14/2024 11:10 AM EST): Doing well with no recent exacerbations. Continue on O2 prn. Continue Albuterol + Symbicort. Assessment & Plan (01/07/2024 2:01 PM EDT): Followed by jewel bearing turner, she is O2 dependent, continue at 3L NC Intermittent claudication 01/07/2024 Hallucinations 01/07/2024 Assessment & Plan (01/07/2024 2:02 PM EDT): Could be related to depression/psychotic event vs metabolic form hypoglycemia or hypoxia Order labs to r/o worm infestation or other metabolic conditions Fu closely w/ mental health prescriber Bacterial pneumonia 10/08/2023 Assessment & Plan (10/08/2023 11:21 AM EST): Resolved, s/p antibiotics COVID-19 10/08/2023 Assessment & Plan (10/08/2023 11:21 AM EST): Resolved, did not need remdesivir Was complicated by bacterial pneumonia Recommended RSV vaccine in 2 wks Covid and Flu IZ are up to date Stage 3b chronic kidney disease 08/05/2023 Overview (01/07/2024): FU by [facility], Dr Prado Assessment & Plan (01/07/2024 2:01 PM EDT): 2/2 to DM and HTN Check GFR and fu w stope miner every yr () Assessment & Plan (08/05/2023 10:55 AM EST): GFR has remained stable Curtain Stretcher Assembler regarding control of DM and hypertension Incontinence of feces with fecal urgency 023 Overflow incontinence of urine 04/20/2023 Hearing loss of right ear 04/16/2023 Assessment & Plan (09/14/2024 1:48 PM EST): Never went to audiology clinic, will send referral. Assessment & Plan (08/05/2023 10:53 AM EST): Refer to audiology Acute pain of left knee 12/04/2022 Assessment & Plan (12/04/2022 3:01 PM EDT): Most likely OA Order x-rays and refer to PT Can use lidocaine patch PRN Calcification of breast 10/22/2022 Chronic diastolic heart failure 10/22/2022 Assessment & Plan (10/08/2023 11:20 AM EST): She does not have s/s of CHF Cont hydralazine + torsemide + carvedilol + isosorbide + diltiazem, pt tolerates well FU w cardiology on 01/2024 Assessment & Plan (08/05/2023 3:04 PM EST): Last Echo was within normal limits and BP remained controlled Refer back to cardiology in [facility] with Dr. Abdul for the f/u Dependence on supplemental oxygen 10/22/2022 Assessment & Plan (10/08/2023 11:20 AM EST): Due to ILD + asthma Cont 1-2L O2 permanently. She should try to be off oxygen for a few minutes while at rest, keep O2 sat above 90-94% Assessment & Plan (08/05/2023 10:39 AM EST): Mostly due to COPD + restrictive lung disease Continue 2 liters NC and f/u with pulmonology Recommended use of a walker to help with weight of the oxygen Assessment & Plan (01/02/2023 12:33 PM EDT): Pt has COPD and interstitial lung disease recommended pt to use supplemental oxygen for any activity including showering no change in medications and FU with pulmonlogist PCV 20 today Assessment & Plan (12/04/2022 3:01 PM EDT): Dependence on supplemental oxygen Pt has significantly restricted lung disease +asthma Continue 2L O2 via NC to keep O2 sat between 90 and 95% Dizziness 10/22/2022 Dyspnea on exertion 10/22/2022 Edema of lower extremity 10/22/2022 Episodic cluster headache 10/22/2022 Hearing loss of left ear 10/22/2022 Assessment & Plan (09/14/2024 1:48 PM EST): Never went to audiology clinic, will send referral. Hyperlipidemia 10/22/2022 Hypernatremia 10/22/2022 Hypoglycemia 10/22/2022 Long toenail 10/22/2022 Assessment & Plan (09/14/2024 1:49 PM EST): Needs toenail trimming, refer to new Drywall Finisher Foreman. Metabolic encephalopathy 10/22/2022 Moderate persistent asthma with exacerbation Assessment & Plan (12/04/2022 3:03 PM EDT): Continue Symbicort. FU closely with jewel bearing turner Neck pain 10/22/2022 Neuropathy of left foot 10/22/2022 Recurrent major depression 10/22/2022 Assessment & Plan (09/14/2024 1:47 PM EST): Pt is doing better, medication was recently adjusted. Follow up with psychiatrist. Assessment & Plan (01/07/2024 2:03 PM EDT): Seems to have psychotic events w/ visual hallucinations (seeing worms) Will order labs to r/o actual worm infestation which is very unlikely Continue fu w psychiatrist (CARMEN Tobin) Continue trazodone 100mg + sertraline + olanzapine + mirtazapine Fu w mental health provider Restrictive lung disease 10/22/2022 Assessment & Plan (08/05/2023 10:53 AM EST): F/u with pulmonology No change in medications Continue O2 at 2 liters NC Assessment & Plan (12/04/2022 3:02 PM EDT): Oxygen dependent Continue close fu with jewel bearing turner No change in medications Rib pain 10/22/2022 Senile osteoporosis 10/22/2022 Snoring 10/22/2022 Tension-type headache 10/22/2022 Tremor of both hands 10/22/2022 Type 2 diabetes mellitus 10/22/2022 Assessment & Plan (09/14/2024 11:06 AM EST): Controlled, Pt most likely postprandial hyperglycemia, discussed with pt control of meal portions. Continue on Januvia 25 mg. Counseled re more frequent low calorie/carb meals. Check fgstk once daily Encouraged physical activity as tolerated. FU in 3 months. Referral to new stage setting painter apprentice. Reminded to schedule eye clinic appointment. She agreed to Covid and influenza vaccines today. Assessment & Plan (01/07/2024 2:01 PM EDT): Most likely controlled Discussed w daughter importance of avoiding hypoglycemia, check fingersticks Prn/during hallucinations Continue Januvia 25mg daily Assessment & Plan (08/05/2023 11:00 AM EST): Controlled. A1c is at goal. Continue on Januvia Counseled re more frequent low calorie/carb meals. Check fgstk once daily Encouraged physical activity as tolerated. No further evidence of hypoglycemia FU in 3 months. Assessment & Plan (12/04/2022 12:18 PM EDT): DM is controlled. A1C is at goal. Continue Januvia 25 mg Counseled re more frequent low calorie/carb meals. Check fgstk daily Encouraged physical activity as tolerated. FU at next appointment. Mild vascular dementia with mood disturbance Assessment & Plan (09/14/2024 11:09 AM EST): Pt is doing better with no further hallucinations. Continue on Namenda + HTN & DM medications + Aspirin. Follow up with Neurologist. Pt lives with her daughter, feels safe at home and able to reach out if need be. Assessment & Plan (01/07/2024 2:00 PM EDT): Continue tight control of HTN and DM. She's due for lipids in 4-5 months Continue home care 30/03, she lives w daughter Counseled regarding O2 above 90% Thyroid nodule 02/17/2020 Assessment & Plan (08/05/2023 10:40 AM EST): Last ultrasound was in 2019, showed 1 cm nodule Will order repeat ultrasounds and see if she needs to f/u with endocrinology if nodules increased in size Resolved Problems Problem Noted Date Diagnosed Date Resolved Date Malignant neoplasm of cervix 04/20/2023 09/14/2024 Cerebral microvascular disease 10/22/2022 01/07/2024 Chronic renal failure, stage 2 (mild) 10/22/2022 08/05/2023 Pneumonia due to COVID-19 virus 10/22/2022 10/08/2023 Encounters Date Type Department Care Team Description 09/30/[address] [address] Suzanna Dao MD Durable Medical Equipment (Incontinence Supplies) 09/22/2024 Orders Only [facility] External Provider, [facility] 09/14/2024 10:15 AM EST Office Visit [address] [address] Suzanna Dao MD Type 2 diabetes mellitus with stage 3 chronic kidney disease, without long-term current use of insulin, unspecified whether stage 3a or 3b CKD (CMS/HCC) (Primary Dx); Mild vascular dementia with mood disturbance ([facility]); Pulmonary emphysema, unspecified emphysema type ([facility]/HCC); Recurrent major depressive disorder, in partial remission ([facility]); Hearing loss of left ear, unspecified hearing loss type; Hearing loss of right ear, unspecified hearing loss type; Long toenail; Encounter for immunization 09/14/2024 Travel 09/13/[address] [address] Mallory Wynne MA Chart prep 09/08/2024 Patient Outreach [address] [address] Suzanna Dao MD Pre-visit Planning (SDOH screening negative and tobacco screening negative) 09/05/[address] [address] Suzanna Dao MD 08/29/[address] [address] Suzanna Dao MD Durable Medical Equipment (Home Care Delivered Form) 07/14/[address] [address] Suzanna Dao MD September recall from Last 3 Months Immunizations Name Administration Dates Next Due Influenza High-dose Quadriva lent Preservative Free 08/05/2023,06/25/2022,06/10/2021 Influenza Quadrivalent Adjuvanted 07/13/2020 Influenza, High Dose Seasona l, Preservative Free 09/14/2024,07/12/2019 Influenza, IIV3, injectable 08/05/2023,1 ,06/10/2021,07/13,07/12/2019 Pfizer Covid-19 Vaccine 12+ 09/14/2024, 3 Pfizer Covid-19 Vaccine 12+ Bivalent 06/25/2022 Pneumococcal Conjugate PCV 20 01/02/2023, 023 Pneumococcal Polysaccharide PPSV23 07/12/2019 Tdap 07/31/2020 Zoster, Recombinant 09/13/2020,07/13/2020 Social History Tobacco Use Types Packs/Day Years Used Date Smoking Tobacco: Never Smokeless Tobacco: Never Tobacco Cessation:Counseling Given: Not Answered Alcohol Use Standard Drinks/Week Comments Never 0 (1 standard drink = 0.6 oz pur e alcohol) Housing Stability Answer Date Recorded What is your housing situation today? I have [email or web address] nam 12/30/[address] you [...] Orientation Straight 07/07/2022 10 :36 AM EDT Last Filed Vital Signs Vital Sign Reading Time Taken Comments Blood Pressure 150/72 09/15/2024 11:30 AM EST Pulse 78 09/15/2024 11:30 AM EST Temperature 35.6 ??C (96 ??F) 09/14/2024 10:09 AM EST Respiratory Rate 24 09/14/2024 10:09 AM EST Oxygen Saturation 91% 09/14/2024 10:09 AM EST Inhaled Oxygen Concentration - - Weight 86.8 kg (191 lb 6 oz) 09/14/2024 10:09 AM EST Height 157.5 cm (5' 2 ) 09/14/2024 10:09 AM EST Body Mass Index 35 09/14/2024 10:09 AM EST Plan of Treatment Upcoming Encounters Date Type Department Care Team (Late st Contact Info) Description 10/20/2024 11:00 AM EST Telemedicine [facility] [address] [place] [address] Health Maintenance Due Date Last Done Comments CT Colonography 1950 Colonoscopy 1948 Colorectal Cancer Screening 1950 FIT DNA/Cologuard 1948 FIT 1950 FOBT 1950 Sigmoidoscopy 1950 Eye Exam 1958 Alcohol/Substance Use Screening 1960 Hepatitis C Screening 1966 Lipid Panel 04/02/2022 04/02/2021, 09/06/2020 RSV Patients and Patients Aged 60 years or older (1 - 1-dose 75+ series) 2023 Depression Screening 12/05/2023 12/04/2022, 12/05/19 23 Diabetes: Hemoglobin A1C 03/14/2025 025, 08/05/2023, 12/04/2022, Additional history exists SDOH Screening 09/08/2025 09/08/2024 Diabetes: Foot Exam 09/14/2025 09/14/2024, 09/14/2024, 09/14/2024, Additional history exists Tobacco Screening 09/14/2025 09/14/2024 DTaP/Tdap/Td Vaccines (2 - Td or Tdap) 07/31/2030 07/31/2020 Zoster Vaccines Completed 09/13/2020, 07/13/2020 Pneumococcal Vaccine: 50+ Years Completed 01/02/2023, 01/02/2023, 07/12/2019 COVID-19 Vaccine Completed 09/14/2024, , 06/25/2022, Additional history exists Influenza Vaccine Completed 09/14/2024, , 08/05/2023, Additional history exists HIB Vaccines Aged Out No longer eligi [...] patient's age to complete this topic Meningococcal Vaccine Aged Out No ronaldo golden eligible based on patient's age to complete this topic RSV under 20 months Aged Out No longe r eligible based on patient's age to complete this topic Rotavirus Vaccines Aged Out No longer eligible based on patient's age to complete this topic Procedures Procedure Name Priority Date/Time Associated Diagnosis Comments CT CHEST WO CONTRAST Routine 09/23/2024 5:18 PM EST XR SINUS 3 VIEWS Routine 09/22/2024 4:45 PM EST POCT GLYCATED HEMOGLOBIN, TOTAL Routine 09/14/2024 10:31 AM EST Type 2 diabetes mellitus with stage 3 chronic kidney disease, without long-term current use of insulin, unspecified whether stage 3a or 3b CKD (CMS/HCC) POCT GLUCOSE Routine 09/14/2024 10:21 AM EST Type 2 diabetes mellitus with stage 3 chronic kidney disease, without long-term current use of insulin, unspecified whether stage 3a or 3b CKD (CMS/HCC) LIPID PANEL, STANDARD Routine 04/02/2021 2:36 PM EDT from Last 3 Months or Most Recently Relevant to Health Maintenance Results * CT Chest w/o Contrast (09/23/2024 5:18 PM EST) Anatomical Region Laterality Modality Body, Chest Computed Tomogra phy 09/23/2024 5:18 PM EST Narrative 09/23/2024 5:19 PM EST ? [facility] ?[address] ?[place] [address] ? CT Scan Report ? Signed ? Patient: Higuera Delgadillo,Aminata ?MR#: [id number] ?? [id number] ? : 1950 ?Acct:[id number] ? Age/Sex: 73 / F ?ADM Date: 09/22/24 ? Loc: HO.CT ? Attending Dr: Rip Louie MD ? Ordering Physician: Rip Louie MD ?? Date of Service: 09/22/24 ?? Procedure(s): CT chest wo IV con ?? Accession Number(s): [id number] ? cc: Suzanna Dao MD; Rip Louie MD ? Report Number: ?? [id number]: Total DLP = ??183.00 mGy-cm ? CLINICAL HISTORY: R91.8 - Other nonspecific abnormal finding of lung field ? CT chest without contrast ? Comparison: CT/SR - CT CHEST WO IV CON - 11/21/22 11:06 EDT ? Findings: ?? No significant cardiomegaly. Trace pericardial effusion. ?? No mediastinal adenopathy or suspicious thyroid lesion. ?? Minimal atherosclerotic disease of the coronary arteries. ?? Significant elevation of the right hemidiaphragm with prominent subjacent ?? atelectasis, not appreciably changed. ?? Few scattered stable sub 5 mm nodules. ?? No new, increasing or suspicious nodule. ?? No effusion. No pneumothorax. ?? Visualized upper abdomen demonstrates no acute process. The right kidney ?? is lobular with a small stable exophytic cysts. ? Impression: ? Stable chronic findings. No acute or suspicious abnormality. ? This document has been electronically signed by: Madi Glynn MD on ?? 09/23/2024 17:18:08 ? Dictated By: ?Madi Glynn MD ? Signed By: ?<Electronically signed by Madi Glynn MD in OV> ? 09/23/24 1719 ? DD/ 1718 ? TD/TT: 09/23/248 ? Commercial Internship: ? Procedure Note Jean Carlos, Image - 09/23/[address] [address] [address] Scan Report Signed Patient: Almaz Shaver#: [id number] : 9Acct:[id number] Age/Sex: 73 / FADM Date: 09/22/24 Loc: HO.CT Attending Dr: Rip Louie MD Ordering Physician: Rip Louie MD Date of Service: 09/22/24 Procedure(s): CT chest wo IV con Accession Number(s): [id number] cc: Suzanna Dao MD; Rip Louie MD Report Number: [id number]: Total DLP = 183.00 mGy-cm CLINICAL HISTORY: R91.8 - Other nonspecific abnormal finding of lung field CT chest without contrast Comparison: CT/SR - CT CHEST WO IV CON - 11/21/22 11:06 EDT Findings: No significant cardiomegaly. Trace pericardial effusion. No mediastinal adenopathy or suspicious thyroid lesion. Minimal atherosclerotic disease of the coronary arteries. Significant elevation of the right hemidiaphragm with prominent subjacent atelectasis, not appreciably changed. Few scattered stable sub 5 mm nodules. No new, increasing or suspicious nodule. No effusion. No pneumothorax. Visualized upper abdomen demonstrates no acute process. The right kidney is lobular with a small stable exophytic cysts. Impression: Stable chronic findings. No acute or suspicious abnormality. This document has been electronically signed by: Madi Glynn MD on 09/23/2024 17:18:08 Dictated By: Madi Glynn MD Signed By: <Electronically signed by Madi Glynn MD in OV> 09/23/249 DD/ 17 TD/TT: 09/23/241717 Commercial Internship: [facility] External Provider IMG CT PROCEDURES Edited Result - Final * XR Sinus 3 Views (09/22/2024 4:45 PM EST) Anatomical Region Laterality Modality Radiographic [place] ging 09/22/2024 4:45 PM EST Narrative 09/23/2024 3:46 PM EST ? [facility] ?[address] ?[place] [address] ?XRay Report ? Signed ? Patient: Higuera Delgadillo,Aminata ?MR#: [id number] ?? [id number] ? : 1950 ?Acct:[id number] ? Age/Sex: 73 / F ?ADM Date: 09/22/24 ? Loc: HO.CT ? Attending Dr: Rip Louei MD ? Ordering Physician: Rip Louie MD ?? Date of Service: 09/22/24 ?? Procedure(s): XR sinus min 3V ?? Accession Number(s): [id number] ? cc: Suzanna Dao MD; Rip Louie MD ? EXAMINATION: ?? XR SINUSES ? CLINICAL INFORMATION: ?? R51.9 - Headache, unspecified ? COMPARISON: ?? None available. ? TECHNIQUE: ?? 3 views of the sinuses were obtained. ? FINDINGS: ?? Poor pneumatization of the frontal sinuses. No gross air-fluid levels. ?? No acute cortical disruption. No lytic or blastic lesions. Edentulous, ?? maxilla and mandible. ? XR/XR sinus min 3V ?? IMPRESSION: ?? No acute paranasal sinus disease. ? Electronically signed by: ??Bruce Gil MD ??09/23/2024 03:43 PM ?? EST RP ? Dictated By: ?Bruce Guo MD ? Signed By: ?<Electronically signed by Bruce Hawkins MD in OV> ? 09/23/24 1543 ? DD/ 1645 ? TD/TT: 09/22/24 1658 ? Commercial Internship: ? Procedure Note Jean Carlos, Image - 09/23/[address] [address] XRay Report Signed Patient: Almaz Shaver#: [id number] : 9Acct:[id number] Age/Sex: 73 / FADM Date: 09/22/24 Loc: HO.CT Attending Dr: Rip Louie MD Ordering Physician: Rip Louie MD Date of Service: 09/22/24 Procedure(s): XR sinus min 3V Accession Number(s): [id number] cc: Suzanna Dao MD; Rip Louie MD EXAMINATION: XR SINUSES CLINICAL INFORMATION: R51.9 - Headache, unspecified COMPARISON: None available. TECHNIQUE: 3 views of the sinuses were obtained. FINDINGS: Poor pneumatization of the frontal sinuses. No gross air-fluid levels. No acute cortical disruption. No lytic or blastic lesions. Edentulous, maxilla and mandible. XR/XR sinus min 3V IMPRESSION: No acute paranasal sinus disease. Electronically signed by: Bruce Gil MD 09/23/2024 03:43 PM EST RP Dictated By: Bruce Guo MD Signed By: <Electronically signed by Bruce Hawkins MDin OV> 09/23/24 1543 DD/ 1645 TD/TT: 09/22/24 1658 Commercial Internship: [facility] External Provider IMG XR PROCEDURES Edited Result - Final * (ABNORMAL) POCT HGB A1C (09/14/2024 10:31 AM EST) Hemoglobin A1C 6.9(A) 4.0 - 6.0 % QC Media Lot # [id number] Lot# Expiration Date , Blood 09/14/2024 10:3 1 AM EST Suzanna Dao MD POINT OF CARE TEST ENTER /EDIT ORDERABLES Final Result * (ABNORMAL) POCT Glucose (09/14/2024 10:21 AM EST) Glucose Blood, POC 289(A) 60 - 200 mg/dL QC Media Lot # [id number] Lot# Expiration Date ,025 Blood Capillary blood specimen / Unknown 09/14/2024 10:21 AM EST Suzanna Dao MD POINT OF CARE TE ST ENTER/EDIT ORDERABLES Edited Result - Final * (ABNORMAL) LIPID PANEL, STANDARD (04/02/2021 2:36 PM EDT) Chol/HDLC Ratio 3.2 <5.0 (calc) [facility] Cholesterol, Total 146 <200 mg/dL [facility] HDL Cholesterol 46(L) > OR = 50 mg/dL [facility] LDL Cholesterol 79 mg/dL (calc) [facility] Comment: Reference range: <100 ?? Desirable range <100 mg/dL for primary prevention; ?? <70 mg/dL for patients with CHD or diabetic patients ?? with > or = 2 CHD risk factors. ?? LDL-C is now calculated using the Dontae-Maya ?? calculation, which is a validated novel method providing ?? better accuracy than the Friedewald equation in the ?? estimation of LDL-C. ?? Dontae REDD et al. LLOYD. 2013;310(19): 1194-0274 ?? (http://education.Jiongji App/faq/SAZ063) Non-HDL Cholesterol 100 <130 mg/dL (calc) [facility] Comment: For patients with diabetes plus 1 major ASCVD risk ?? factor, treating to a non-HDL-C goal of <100 mg/dL ?? (LDL-C of <70 mg/dL) is considered a therapeutic ?? option. Triglycerides 116 <150 mg/dL [facility] 04/02/2021 2:36 PM EDT us Suzanna Dao MD LAB BLOOD ORDERABLES Fin al Result [facility] [address] from Last 3 Months or Most Recently Relevant to Health Maintenance Insurance [facility] Care Teams Dairy Department Manager Relationship Specialty Start Date End Date Suzanna Dao MD [address] [place] [phone] PCP - General Family Medicine 07/21/19
--- OUTSIDE RECORDS SUMMARY | 2024-10-07 07:52 | XMS_ITS | Encounter Summary ---
Author Organization [employer] Address [address] [facility] 7 [place] [address] Care Team Providers Care Relationship Specialist Name Role Phone Suznana Dao MD Primary Care Provider + Encounter Details Date Type Department Care Team (Late st Contact Info) Description 09/22/2024 Orders Only [facility] External Provider, [facility] Social History Tobacco Use Types Packs/Day Years Used Date Smoking Tobacco: Never Smokeless Tobacco: Never Alcohol Use Standard Drinks/Week Comments Never 0 (1 standard drink = 0.6 oz pur e alcohol) Housing Stability Answer Date Recorded What is your housing situation today? I have edgard nma 12/30/[address] you li [...] Info) Description 10/20/2024 11:00 AM EST Telemedicine [facility] MEDICINE [address] [place] [address] documented as of this encounter Procedures Procedure Name Priority Date/Time Associated Diagnosis Comments CT CHEST WO CONTRAST Routine 09/23/2024 5:18 PM EST XR SINUS 3 VIEWS Routine 09/22/2024 4:45 PM EST documented in this encounter Results * CT Chest w/o Contrast (09/23/2024 5:18 PM EST) Anatomical Region Laterality Modality Body, Chest Computed Tomogra phy 09/23/2024 5:18 PM EST Narrative 09/23/2024 5:19 PM EST ? [facility] ?[address] ?[place] [address] ? CT Scan Report ? Signed ? Patient: Aminata Shaver ?MR#: [id number] ?? [id number] ? : 1950 ?Acct:[id number] ? Age/Sex: 73 / F ?ADM Date: 09/22/24 ? Loc: HO.CT ? Attending Dr: Rip Louie MD ? Ordering Physician: Rip Louie MD ?? Date of Service: 09/22/24 ?? Procedure(s): CT chest wo IV con ?? Accession Number(s): [id number] ? cc: Suzanna Dao MD; Rip Louie MD ? Report Number: ?? [id number]: Total DLP = ??183.00 mGy-cm ? CLINICAL [...] in OV> ? 09/23/24 1719 ? DD/ ? TD/TT: 09/23/241717 ? Shank Cutter: ? Procedure Note Jean Carlos, Soni - 09/23/[address] [place] [address] [address] Scan Report Signed Patient: Almaz Shaver#: [id number] : 9Acct:[id number] Age/Sex: 73 / FADM Date: 09/22/24 Loc: HO.CT Attending Dr: Rip Louie MD Ordering Physician: Rip Louie MD Date of Service: 09/22/24 Procedure(s): CT chest wo IV con Accession Number(s): [id number] cc: Suzanna Dao MD; Rip Louie MD Report Number: [id number]: Total DLP = 183.00 mGy-cm CLINICAL HISTORY: [...] signed by Madi Glynn MD in OV> 09/23/241718 DD/ 17 TD/TT: 09/23/241717 Shank Cutter: [facility] External Provider IMG CT PROCEDURES Edited Result - Final * XR Sinus 3 Views (09/22/2024 4:45 PM EST) Anatomical Region Laterality Modality Radiographic [place] ging 09/22/2024 4:45 PM EST Narrative 09/23/2024 3:46 PM EST ? [facility] ?[address] ?[place] [address] ?XRay Report ? Signed ? Patient: Aminata Shaver ?MR#: [id number] ?? [id number] ? : 1950 ?Acct:[id number] ? Age/Sex: 73 / F ?ADM Date: 09/22/24 ? Loc: HO.CT ? Attending Dr: Rip Louie MD ? Ordering Physician: Rip Louie MD ?? Date of Service: 09/22/24 ?? Procedure(s): XR sinus min 3V ?? Accession Number(s): [id number] ? cc: Suzanna Dao MD; Rip Louie [...] DD/ 1645 ? TD/TT: 09/22/24 1658 ? Shank Cutter: ? Procedure Note Donmagowilliamter, Image - 09/23/[address] [address] XRay Report Signed Patient: Almaz Shaver#: [id number] : 9Acct:[id number] Age/Sex: 73 / FADM Date: 09/22/24 Loc: HO.CT Attending Dr: Rip Louie MD Ordering Physician: Rip Louie MD Date of Service: 09/22/24 Procedure(s): XR sinus min 3V Accession Number(s): [id number] cc: Suzanna Dao MD; Rip Louie MD [...] Bruce Gil MD 09/23/2024 03:43 PM EST Dictated By: Bruce Guo MD Signed By: <Electronically signed by Bruce Hawkins MDin OV> 09/23/24 1543 DD/ TD/TT: 09/22/248 Shank Cutter: [facility] External Provider IMG XR PROCEDURES Edited Result - Final documented in this encounter Visit Diagnoses Not on filedocumented in this encounter Care Teams Relationship Specialist Relationship Specialty Start Date End Date Suzanna Dao MD [address] [place] [address] PCP - General Family Medicine 07/21/19 documented as of this encounter
--- OUTSIDE RECORDS SUMMARY | 2024-10-07 07:52 | XMS_ITS | Encounter Summary ---
Author Organization [employer] Address [address] [place] [address] Care Team Providers Care Director Card Name Role Phone Suzanna Dao MD Primary Care Provider + Reason for Visit * Reason Comments Pre-visit Planning SDOH screening negat carlos and tobacco screening negative Encounter Details Date Type Department Care Team ([facility] st Contact Info) Description 09/08/2024 Patient Outreach [facility] MEDICINE [address] [place], [place] [phone] Suzanna Dao MD [address] [place] [address] Pre-visit Planning (SDOH screening negative and tobacco screening negative) Social History Tobacco Use Types Packs/Day Years [...] Access Q2 Not on file 09/08/2024 Comments Unknown Sex and Gender Information Value Date Recorded Sex Assigned at Female 07/07/2022 10:36 AM EDT Legal Sex Female 10:36 AM EDT Gender Identity Female 07/07/2022 10:36 AM EDT Sexual Orientation Straight 07/07/2022 10 :36 AM EDT documented as of this encounter Progress Notes * Nena Birch - 09/08/2024 10:29 AM EST CC Nena placed successful outbound call to patient for pre-visit planning. Patient name and confirmed. Patient confirms appt date and time, and has transportation. Biggest concern for appointment at this time is none Patient advised to bring to appointment a photo id and insurance card. Appropriate screenings completed in anticipation of appointment. documented in this encounter Plan of Treatment Upcoming Encounters Date Type Department Care Team (Late st Contact Info) Description 10/20/2024 11:00 AM EST Telemedicine [facility] MEDICINE [address] [place] [address] documented as of this encounter Visit Diagnoses Not on filedocumented in this encounter Care Teams Director Card Relationship Specialty Start Date End Date Suzanna Dao MD [address] [place] [address] PCP - General Family Medicine 07/21/19 documented as of this encounter
--- OUTSIDE RECORDS SUMMARY | 2024-10-07 07:52 | XMS_ITS | Encounter Summary ---
Author Organization [employer] Address [address] [place] [address] [place] [address] Care Team Providers Care Infrastructure Administrator Name Role Phone Suzanna Dao MD Primary Care Provider + Reason for Visit * Reason Onset Date Comments Durable Medical Equipment 08/29/2024 Home C are Delivered Form Encounter Details Date Type Department Care Team ([facility] st Contact Info) Description 08/29/2024 Telephone [facility] MEDICINE [address] [place], [place] [phone] Suzanna Dao MD [address] [place] [address] Durable Medical Equipment (Home Care Delivered Form) Social History Tobacco Use Types Packs/Day Years [...] encounter Miscellaneous Notes * Telephone Encounter - Aisha Gregory MA - 09/12/2024 10:10 AM EST Received forms below signed by PCP and faxed them back to Home care delivery and sent to scan. * Telephone Encounter - Xochilt Louie - 08/29/2024 9:41 AM EST Confirmation of order for Diapers/pull ups from Home Care Delivered received and is being processed. documented in this encounter Plan of Treatment Upcoming Encounters Date Type Department Care Team (Late st Contact Info) Description 10/20/2024 11:00 AM EST Telemedicine [facility] MEDICINE [address] [place] [address] documented as of this encounter Visit Diagnoses Not on filedocumented in this encounter Care Teams Infrastructure Administrator Relationship Specialty Start Date End Date Suzanna Dao MD [address] [place] [address] PCP - General Family Medicine 07/21/19 documented as of this encounter
--- OUTSIDE RECORDS SUMMARY | 2024-10-07 07:52 | XMS_ITS | Encounter Summary ---
Author Organization [facility] Address [address] [place] [address] [facility] [place] [address] Care Team Providers Care Professor Of Environmental Studies Name Role Phone Ang Tavares MD Primary Care Provider + Reason for Referral * Consultation (Routine) - Authorized Specialty Diagnoses / Procedures Referred By Contac t Referred To Contact Pharmacy Diagnoses Pulmonary emphysema, unspecified emphysema type (CMS/HCC) Restrictive lung disease Stage 3b chronic kidney disease (CMS/HCC) Type 2 diabetes mellitus with stage 3 chronic kidney disease, without long-term current use of insulin, unspecified whether stage 3a or 3b CKD (CMS/HCC) Ang Tavares MD [address] [place] [address] Phone: tel: fax: Referral ID Status Reason Start Date Expiration Date Visits Requested Visits Authorized [id number] Authorized Continuity of Care 09/13/2024 09/13/2025 6 6 Encounter Details Date Type Department Care Team (Late st Contact Info) Description 09/05/2024 Telephone [facility] [address] [place] [address] Ang Tavares MD [address] [place] [address] Social History Tobacco Use Types Packs/Day Years [...] as of this encounter Miscellaneous Notes * Addendum Note - Ang Tavares MD - 09/13/2024 3:17 PM ESTAddended by: ANG TAVARES on: 09/13/2024 03:17 PM Modules accepted: Orders * Telephone Encounter - Ang Tavares MD - 09/13/2024 3:17 PM EST Referral sent * Telephone Encounter - Nikole Louie - 09/05/2024 10:34 AM EST Pharmacy is requesting a new MTM referral with a diagnosis of diabetes Type 2 diabetes mellitus with stage 3 chronic kidney disease, without long-term current use of insulin, unspecified whether stage 3a or 3b CKD E11.22. Please send at your earliest convenience. Thank you! documented in this encounter Plan of Treatment Upcoming Encounters Date Type Department Care Team (Late st Contact Info) Description 10/20/2024 11:00 AM EST Telemedicine [facility]ICINE [address] [place] [address] Scheduled Referrals Name Type Priority Associated Diagnoses Orde r Schedule Referral to Pharmacy MT Outpatient Referral Routine Pulmonary emphysema, unspecified emphysema type (CMS/HCC) Restrictive lung disease Stage 3b chronic kidney disease (CMS/HCC) Type 2 diabetes mellitus with stage 3 chronic kidney disease, without long-term current use of insulin, unspecified whether stage 3a or 3b CKD (CMS/HCC) Ordered: 09/13/2024 documented as of this encounter Visit Diagnoses Diagnosis Pulmonary emphysema, unspecified emphysema type (CMS/HCC)- Primary Restrictive lung disease Other diseases of lung, not elsewhere classified Stage 3b chronic kidney disease (CMS/HCC) Type 2 diabetes mellitus with stage 3 chronic kidney disease, without long-term current use of insulin, unspecified whether stage 3a or 3b CKD (CMS/HCC) documented in this encounter Care Teams Professor Of Environmental Studies Relationship Specialty Start Date End Date Ang Tavares MD [address] [place] [address] PCP - General Family Medicine 07/21/19 documented as of this encounter
--- OUTSIDE RECORDS SUMMARY | 2024-10-07 07:52 | XMS_ITS | Encounter Summary ---
Author Organization [employer] Address [address] [facility] 7 [place] [address] Care Team Providers Care Campaign Management Specialist Name Role Phone Suzanna Dao MD Primary Care Provider + Reason for Visit * Reason Onset Date Comments Chart prep 09/13/2024 Encounter Details Date Type Department Care Team ([facility] st Contact Info) Description 09/13/2024 Telephone [facility] MEDICINE [address] [place] [address] Mallory Wynne MA Chart prep Social History Tobacco Use Types Packs/Day Years [...] encounter Miscellaneous Notes * Telephone Encounter - Mallory Wynne MA - 09/13/2024 1:51 PM EST Chart Prep Labs: done Images: done Vaccines due: yes Referrals: complete Screenings: colonoscopy , eye exam Overdue care gaps: A1C, Glucose documented in this encounter Plan of Treatment Upcoming Encounters Date Type Department Care Team (Late st Contact Info) Description 10/20/2024 11:00 AM EST Telemedicine [facility] MEDICINE [address] [place] [address] documented as of this encounter Visit Diagnoses Not on filedocumented in this encounter Care Teams Campaign Management Specialist Relationship Specialty Start Date End Date Suzanna Dao MD [address] [place] [address] PCP - General Family Medicine 07/21/19 documented as of this encounter
--- OUTSIDE RECORDS SUMMARY | 2024-10-07 07:52 | XMS_ITS | Encounter Summary ---
Author Organization [facility] Address [address] [place] [address] Phone Care Team Providers Care Professor Of Business Name Role Phone Suzanna Dao MD Primary Care Provider + [phone] Encounter Details Date Type Department Care Team (Late Contact Info) Description 01/29/2023 Telephone [facility] [address] [place] [address] Vickie Barros Social History Tobacco Use Types Packs/Day Years [...] encounter Miscellaneous Notes * Telephone Encounter - Vickie Barros - 01/29/2023 11:17 AM EDT This PT is requesting a refill, Debra is unavailable today if you could please fill this script for this PT. torsemide (DEMADEX) 20 MG tablet documented in this encounter Plan of Treatment Upcoming Encounters Date Type Department Care Team (Late Contact Info) Description 11/23/2024 10:20 AM EDT Office Visit [facility] [address] [facility] [address] [place] [address] Grey Prado MD [address] [facility] [address] [place] [address] documented as of this encounter Visit Diagnoses Not on filedocumented in this encounter Care Teams Professor Of Business Relationship Specialty Start Date End Date Suzanna Dao MD [address] [place] [address] PCP - General Internal Medicine 05/29/21 documented as of this encounter
--- OUTSIDE RECORDS SUMMARY | 2024-10-07 07:52 | XMS_ITS | Encounter Summary ---
Author Organization [employer] Address [address] [facility] 7t [place] [address] Care Team Providers Care Acoustic Intelligence Specialist Name Role Phone Suzanna Dao MD Primary Care Provider + Encounter Details Date Type Department Care Team (Latest Contact Info) Description 09/14/2024 Travel Social History Tobacco Use Types Packs/Day Years Used Date Smoking Tobacco: Never Smokeless Tobacco: Never Alcohol Use Standard Drinks/Week Comments Never 0 (1 standard drink = 0.6 oz pur e alcohol) Housing Stability Answer Date Recorded What is your housing situation today? I have edgard sing 12/30/[address] you li [...] Info) Description 10/20/2024 11:00 AM EST Telemedicine [facility] MEDICINE [address] [place] [address] documented as of this encounter Visit Diagnoses Not on filedocumented in this encounter Care Teams Acoustic Intelligence Specialist Relationship Specialty Start Date End Date Suzanna Dao MD [address] [place] [address] PCP - General Family Medicine 07/21/19 documented as of this encounter
--- OUTSIDE RECORDS SUMMARY | 2024-10-07 07:52 | XMS_ITS | Encounter Summary ---
Author Organization [employer] Address [address] [facility] 7 [place] [address] Care Team Providers Care Ware Dresser Name Role Phone Suzanna Dao MD Primary Care Provider + Reason for Visit * Reason Onset Date Comments Med Refill 11/20/2023 Encounter Details Date Type Department Care Team ([facility] st Contact Info) Description 11/20/2023 Refill [facility] MEDICINE [address] [place], [place] [phone] Niecy Nunez MD [address] [place], [place] [phone] Social History Tobacco Use Types Packs/Day Years [...] Info) Description 10/20/2024 11:00 AM EST Telemedicine [facility] MEDICINE [address] [place] [address] documented as of this encounter Visit Diagnoses Not on filedocumented in this encounter Care Teams Ware Dresser Relationship Specialty Start Date End Date Suzanna Dao MD [address] [place] [address] PCP - General Family Medicine 07/21/19 documented as of this encounter
--- OUTSIDE RECORDS SUMMARY | 2024-10-07 07:52 | XMS_ITS | Encounter Summary ---
Author Organization [employer] Address [address] [place] [address] [address] [address] Care Team Providers Care Drafter Geophysical Name Role Phone Suzanna Dao MD Primary Care Provider + Reason for Referral * Consultation (Routine) - Authorized Specialty Diagnoses / Procedures Referred By Edwin ramirez Referred To Contact Podiatry Diagnoses Type 2 diabetes mellitus with stage 3 chronic kidney disease, without long-term current use of insulin, unspecified whether stage 3a or 3b CKD (CMS/HCC) Long toenail Suzanna Dao MD [address] [place] [id number] Phone: tel: fax: Jamin Jaruegui DPM [address] [address] Phone: tel: fax: Referral ID Status Reason Start Date Expiration Date Visits Requested Visits Authorized [id number] Authorized Specialty Services Required 09/14/2024 09/14/2025 1 1 * Consultation (Routine) - Authorized Specialty Diagnoses / Procedures Referred By Edwin ramirez Referred To Contact Audiology Diagnoses Hearing loss of right ear, unspecified hearing loss type Suzanna Dao MD [address] [place] [phone] Phone: tel: fax: [facility] [address] [place], [place] Phone: tel: fax: Referral ID Status Reason Start Date Expiration Date Visits Requested Visits Authorized [id number] Authorized Specialty Services Required 09/14/2024 09/14/2025 1 1 Reason for Visit * Reason Comments Diabetes Encounter Details Date Type Department Care Team (Late st Contact Info) Description 09/14/2024 10:15 AM EST Office Visit [facility] [address] [place] [address] Suzanna Dao MD [address] [place], [place] [id number] Type 2 diabetes mellitus with stage 3 chronic kidney disease, without long-term current use of insulin, unspecified whether stage 3a or 3b CKD (CMS/HCC) (Primary Dx); 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); Pulmonary emphysema, unspecified emphysema type (CMS/HCC); Recurrent major depressive disorder, in partial remission (CMS/HCC); Hearing loss of left ear, unspecified hearing loss type; Hearing loss of right ear, unspecified hearing loss type; Long toenail; Encounter for immunization Social History Tobacco Use Types Packs/Day Years [...] AM EDT documented as of this encounter Last Filed Vital Signs Vital Sign Reading Time Taken Comments Blood Pressure 160/75 09/14/2024 10:09 AM EST Pulse 83 09/14/2024 10:09 AM EST Temperature 35.6 ??C (96 ??F) 09/14/2024 10:09 AM EST Respiratory Rate 24 09/14/2024 10:09 AM EST Oxygen Saturation 91% 09/14/2024 10:09 AM EST Inhaled Oxygen Concentration - - Weight 86.8 kg (191 lb 6 oz) 09/14/2024 10:09 AM EST Height 157.5 cm (5' 2 ) 09/14/2024 10:09 AM EST Body Mass Index 35 09/14/2024 10:09 AM EST documented in this encounter Progress Notes * Suzanna Dao MD - 09/14/2024 10:15 AM EST SUBJECTIVE: Aminata Delgadillo is a 73 y.o. year old female who presents for follow up of DM and HTN. Denies recent illness, injury, or hospitalization. Labs on 01/07/2024 showed hypercalcemia, other labs are WNL. He has secondary PTH, phosphorous and calcium WNL (05-19-2024). Pt is here with her daughter. She states she is doing okay. She has been having knee pain and cannot use walker in the house due to limited space. She is not using compression socks as recommended, even after size adjustment. Pt is sleeping well with current medications and following up with psychiatry. She is not checking her BS at home. She has not had any hypoglycemic Sx. Acute Concerns: Social History Social History Narrative Not on file Patient Active Problem List Diagnosis Calcification of breast Chronic diastolic heart failure (CMS/HCC) Dependence on supplemental oxygen Dizziness Dyspnea on exertion Edema of lower extremity Episodic cluster headache Thyroid nodule Hearing loss of left ear Hyperlipidemia Hypernatremia Hypoglycemia Long toenail Metabolic encephalopathy Moderate persistent asthma with exacerbation Neck pain Neuropathy of left foot Recurrent major depression (CMS/HCC) Restrictive lung disease Rib pain Senile osteoporosis Snoring Tension-type headache Tremor of both hands Type 2 diabetes mellitus (CMS/HCC) Acute pain of left knee Hearing loss of right ear Incontinence of feces with fecal urgency Overflow incontinence of urine Stage 3b chronic kidney disease (CMS/HCC) Bacterial pneumonia COVID-19 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) Pulmonary emphysema, unspecified emphysema type (CMS/HCC) Intermittent claudication (CMS/HCC) Hallucinations No family history on file. Review of Systems Constitutional: Negative for chills, fatigue and fever. HENT: Positive for hearing loss (bilateral). Negative for congestion, ear pain, nosebleeds, rhinorrhea, sinus pressure, sore throat and trouble swallowing. Eyes: Positive for visual disturbance. Negative for pain and discharge. Respiratory: Negative for cough, chest tightness and shortness of breath. Cardiovascular: Negative for chest pain, palpitations and leg swelling. Gastrointestinal: Negative for abdominal pain, blood in stool, constipation, diarrhea and nausea. Endocrine: Negative for polydipsia and polyuria. Genitourinary: Negative for dysuria, frequency, genital sores, pelvic pain and vaginal discharge. Musculoskeletal: Positive for arthralgias (knees) and gait problem. Negative for back pain and neckpain. Skin: Negative for rash. Allergic/Immunologic: Negative for environmental allergies. Neurological: Negative for dizziness, seizures, weakness, light-headedness and headaches. Hematological: Negative for adenopathy. Psychiatric/Behavioral: Negative for agitation, behavioral problems, self-injury and suicidal ideas. OBJECTIVE: Vitals: 09/14/24 1009 BP: (!) 160/75 Pulse: 83 Resp: 24 Temp: 96 ??F (35.6 ??C) SpO2: 91% Physical Exam Constitutional: Appearance: Normal appearance. HENT: Right Ear: Tympanic membrane and ear canal normal. Left Ear: Tympanic membrane and ear canal normal. Mouth/Throat: Mouth: Mucous membranes are moist. Pharynx: No oropharyngeal exudate or posterior oropharyngeal erythema. Eyes: Pupils: Pupils are equal, round, and reactive to light. Cardiovascular: Rate and Rhythm: Normal rate and regular rhythm. Pulses: Dorsalis pedis pulses are 2+ on the right side and 2+ on the left side. Posterior tibial pulses are 2+ on the right side and 2+ on the left side. Heart sounds: No murmur heard. Pulmonary: Breath sounds: Normal breath sounds. No wheezing. Comments: On 2L O2 NC. Abdominal: General: Bowel sounds are normal. Palpations: Abdomen is soft. Tenderness: There is no abdominal tenderness. Musculoskeletal: General: No tenderness. Normal range of motion. Cervical back: Normal range of motion. No tenderness. Right foot: No deformity. Left foot: No deformity. Feet: Right foot: Protective Sensation: 7 sites tested. 7 sites sensed. Skin integrity: No ulcer or fissure. Toenail Condition: Right toenails are long. Left foot: Protective Sensation: 7 sites tested. 7 sites sensed. Skin integrity: No ulcer or fissure. Toenail Condition: Left toenails are long. Comments: Long thick toe nails. Skin: General: Skin is warm. Neurological: General: No focal deficit present. Mental Status: She is alert and oriented to person, place, and time. Psychiatric: Mood and Affect: Mood normal. Office Visit on 09/14/2024 Component Date Value Ref Range Status Glucose Blood, POC 09/14/2024 289 (A) 60 - 200 mg/dL Final QC Media Lot # 09/14/2024 [id number] Final Lot# Expiration Date 09/14/2024 [id number] Final Hemoglobin A1C 09/14/2024 6.9 (A) 4.0 - 6.0 % Final QC Media Lot # 09/14/2024 [id number] Final Lot# Expiration Date 09/14/2024 [id number] Final ASSESSMENT/PLAN Problem List Items Addressed This Visit Type 2 diabetes mellitus (CMS/HCC) - Primary Controlled, Pt most likely postprandial hyperglycemia, discussed with pt control of meal portions. Continue on Januvia 25 mg. Counseled re more frequent low calorie/carb meals. Check fgstk once daily Encouraged physical activity as tolerated. FU in 3 months. Referral to new director of retail marketing. Reminded to schedule eye clinic appointment. She agreed to Covid and influenza vaccines today. 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 Continue on Namenda + HTN & DM medications + Aspirin. Follow up with Neurologist. Pt lives with her daughter, feels safe at home and able to reach out if need be. Pulmonary emphysema, unspecified emphysema type (CMS/HCC) Doing well with no recent exacerbations. Continue on O2 prn. Continue Albuterol + Symbicort. Recurrent major depression (CMS/HCC) Pt is doing better, medication was recently adjusted. Follow up with psychiatrist. Hearing loss of left ear Never went to audiology clinic, will send referral. Hearing loss of right ear Never went to audiology clinic, will send referral. Relevant Orders Referral to Audiology Long toenail Needs toenail trimming, refer to new Cloth Feeder. Relevant Orders Referral to Podiatry Other Visit Diagnoses Encounter for immunization Relevant Orders COVID-19 VACCINE (Pfizer) 9640-2083 12 yrs + (Completed) FLU VACCINE TRIVALENT HIGH DOSE 65 yrs + (Completed) Follow Up: Current Outpatient Medications on File Prior to Visit Medication Sig Dispense Refill albuterol (2.5 MG/3ML) 0.083% nebulizer solution inhale 3 milliliter by nebulization route 3 times every day prn SOB/asthma albuterol 108 (90 Base) MCG/ACT inhaler INHALE 1 PUFF BY MOUTH EVERY 6 HOURS NEEDED SHORTNESS OFBREATH OR FOR WHEEZING alendronate (Fosamax) 70 MG tablet Take 1 tablet by mouth once a week. amLODIPine (Norvasc) 10 MG tablet Take 1 tablet (10 mg) by mouth Once per day. 90 tablet 3 atorvastatin (Lipitor) 40 MG tablet TAKE 1 TABLET BY MOUTH EVERY DAY 90 tablet 3 budesonide-formoterol (Symbicort) 160-4.5 MCG/ACT inhaler Inhale 2 puffs every 12 (twelve) hours. carvedilol (Coreg) 25 MG tablet Take 25 mg by mouth 2 times daily. cholecalciferol (Vitamin D High Potency) 25 MCG (1000 UT) capsule Take 1 capsule (25 mcg) by mouth Once per day. 90 capsule 3 famotidine (Pepcid) 20 MG tablet Take 1 tablet by mouth in the morning. gabapentin (Neurontin) 400 MG capsule Take 1 capsule by mouth at bedtime. hydrALAZINE (Apresoline) 100 MG tablet isosorbide mononitrate ER (Imdur) 60 MG 24 hr tablet Take 60 mg by mouth in the morning. Januvia 25 MG tablet TAKE 1 TABLET BY MOUTH EVERY DAY 90 tablet 3 Lancets (OneTouch Delica Plus Slfuft21O) [facility] [place] Apply 1 each topically 2 times daily. 100 each 11 melatonin 10 MG tablet 1 tab po/hs memantine (Namenda) 5 MG tablet Take 1 tablet (5 mg) by mouth in the morning. 30 tablet 11 montelukast (Singulair) 10 MG tablet TAKE 1 TABLET BY MOUTH DAILY IN THE EVENING 90 tablet 3 nitroglycerin (Nitrostat) 0.[address] 1 tablet under the tongue. OneTouch Ultra test strip TEST BLOOD SUGAR TWICE DAILY 100 strip 11 pentoxifylline (Trental) 400 MG ER tablet Take 1 tablet (400 mg) by mouth with breakfast and with evening meal. Do not crush, chew, or split. 60 tablet 5 polyvinyl alcohol (Liquifilm Tears) 1.4 % ophthalmic solution PLACE 1 DROP INTO THE AFFECTED EYE(S)THREE TIMES DAILY NEEDED FOR DRYNESS OR IRRITATION 15 mL 11 sertraline (Zoloft) 100 MG tablet Take 1.5 tablets by mouth 1 (one) time each day. torsemide (Demadex) 20 MG tablet TAKE 2 TABLETS BY MOUTH ONCE DAILY [DISCONTINUED] acetaminophen (Tylenol) 500 MG tablet Take 1 tablet by mouth every 6 (six) hours. [DISCONTINUED] traZODone (Desyrel) 50 MG tablet Take 1 tablet by mouth at bedtime. No current facility-administered medications on file prior to visit. I, Amy Brown, am serving as a scribe to document services personally performed by Dr. Suzanna Dao, based on the patient's response to questions by provider and provider's statements to me. documented in this encounter Miscellaneous Notes * Assessment & Plan Note - Amy Brown - 09/14/2024 1:49 PM ESTAssociated Problem(s): Long toenail Needs toenail trimming, refer to new Cloth Feeder. * Assessment & Plan Note - Amy Brown - 09/14/2024 1:48 PM ESTAssociated Problem(s): Hearing loss of left ear Never went to audiology clinic, will send referral. * Assessment & Plan Note - Amy Brown - 09/14/2024 1:48 PM ESTAssociated Problem(s): Hearing loss of right ear Never went to audiology clinic, will send referral. * Assessment & Plan Note - Amy Brown - 09/14/2024 1:47 PM ESTAssociated Problem(s): Recurrent major depression (CMS/HCC) Pt is doing better, medication was recently adjusted. Follow up with psychiatrist. * Assessment & Plan Note - Amy Brown - 09/14/2024 11:10 AM ESTAssociated Problem(s): Pulmonary emphysema, unspecified emphysema type (CMS/HCC) Doing well with no recent exacerbations. Continue on O2 prn. Continue Albuterol + Symbicort. * Assessment & Plan Note - Amy Brown - 09/14/2024 11:09 AM ESTAssociated Problem(s): 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) Pt is doing better with no further hallucinations. Continue on Namenda + HTN & DM medications + Aspirin. Follow up with Neurologist. Pt lives with her daughter, feels safe at home and able to reach out if need be. * Assessment & Plan Note - Amy Brown - 09/14/2024 11:06 AM ESTAssociated Problem(s): Type 2 diabetes mellitus (CMS/HCC) Controlled, Pt most likely postprandial hyperglycemia, discussed with pt control of meal portions. Continue on Januvia 25 mg. Counseled re more frequent low calorie/carb meals. Check fgstk once daily Encouraged physical activity as tolerated. FU in 3 months. Referral to new director of retail marketing. Reminded to schedule eye clinic appointment. She agreed to Covid and influenza vaccines today. documented in this encounter Plan of Treatment Upcoming Encounters Date Type Department Care Team (Late st Contact Info) Description 10/20/2024 11:00 AM EST Telemedicine [facility] [address] [place] [phone] Scheduled Referrals Name Type Priority Associated Diagnoses Orde r Schedule Referral to Audiology Outpatient Referral Routine Hearing loss of right ear, unspecified hearing loss type Expected: 09/14/2024 (Approximate), Expires: 09/14/2025 Referral to Podiatry Outpatient Referral Routine Type 2 diabetes mellitus with stage 3 chronic kidney disease, without long-term current use of insulin, unspecified whether stage 3a or 3b CKD (CMS/HCC) Long toenail Expected: 09/14/2024 (Approximate), Expires: 09/14/2025 documented as of this encounter Procedures Procedure Name Priority Date/Time Associated Diagnosis Comments POCT GLYCATED HEMOGLOBIN, TOTAL Routine 09/14/2024 10:31 [...] 3b CKD (CMS/HCC) documented in this encounter Results * (ABNORMAL) POCT HGB A1C (09/14/2024 10:31 AM EST) Hemoglobin A1C 6.9(A) 4.0 - 6.0 % QC Media Lot # [id number] Lot# Expiration Date Blood 09/14/2024 10:3 1 AM EST Suzanna [...] ST ENTER/EDIT ORDERABLES Edited Result - Final documented in this encounter Visit Diagnoses Diagnosis Type 2 diabetes mellitus with stage 3 chronic kidney disease, without long-term current use of insulin, unspecified whether stage 3a or 3b CKD (CMS/HCC)- Primary 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) Pulmonary emphysema, unspecified emphysema type (CMS/HCC) Recurrent major depressive disorder, in partial remission (CMS/HCC) Hearing loss of left ear, unspecified hearing loss type Hearing loss of right ear, unspecified hearing loss type Long toenail Encounter for immunization documented in this encounter Care Teams Drafter Geophysical Relationship Specialty Start Date End Date Suzanna Dao MD [address] [place] [phone] PCP - General Family Medicine 07/21/19 documented as of this encounter
== END 2024-10-07 07:48 | disposition home or self-care (01) ==
LOC: HO.SH 07:47
PROVIDERS: Visit Provider Internal Medicine
DX: Z01.118 Encounter for examination of ears and hearing with other abnormal findings (principal); H90.3 Sensorineural hearing loss, bilateral
CPT/HCPCS: 92553; 92555; 92567

== ENCOUNTER 2024-11-11 14:02 | Outpatient (AMB) | payer OTHER, SELFPAY ==
[2024-11-11 14:11] VITALS: BP 152/78; PULSE 73; O2SAT 94; BMI 35.1
--- NOTE | 2024-11-11 14:11 | MHC.OFFVIS ---
Vital Signs 11/11/24 14:11 Height 5 ft 2 in Weight 191 lb 12.835 oz BMI 35.1 BP 152/78 H Blood Pressure Location Rt brachial Position Sitting Pulse 73 Pulse Source Pulse Oximeter Pulse Oximetry (%) 94 Oxygen Delivery Method Nasal Cannula Oxygen Flow Rate 3 Intake Visit Reasons: COPD Allergies ampicillin Allergy (Severe, Verified 11/11/24 14:15) Rash and Hives aspirin Allergy (Severe, Verified 11/11/24 14:15) Rash and Hives clopidogrel [Plavix] Allergy (Severe, Verified 11/11/24 14:15) Rash and Hives PCN Allergy (Severe, Uncoded 11/11/24 14:15) Rash and Hives HPI Comments Details: The patient is a 74-year-old woman with a known history of asthma in addition to hypertension. Apparently she has been getting dizziness and headaches. She was referred to the [facility] ED for further evaluation. There was back in August 2018. When she was there she was found to be hypoxic down to 81%. She was placed on oxygen. She is getting her oxygen through [facility]. She has been using the oxygen 24-7. She has been getting some dryness of her nose. We did review her x-ray that she had there with significantly elevated right hemidiaphragm. She is not aware of any injuries or surgeries to her thoracic area. She denies any falls or trauma to the right side. She denies choking or any difficulty with cough. The patient also had an echocardiogram which she was noted to have some trivial valvular disease in addition to hypertrophic left ventricle with diastolic dysfunction. She does have lower extremity edema. The patient did have pulmonary function studies recently demonstrating no obstruction in on a severe diffusion impairment. However, she was unable to perform lung volumes. She also underwent a sleep study demonstrating she has periodic limb movement and evidence of hypoxia but no evidence of any sleep apnea.The CT scan of the chest demonstrated a significantly elevated right hemidiaphragm suggesting either a paralyzed diaphragm or severed phrenic nerve. We did talk about potentially performing a sniff test in the near future once the COVID-19 virus resolved. In the meantime the patient is to continue taking walks and work on deep breathing exercises. She also has a thyroid nodule that was calcified in addition to other calcified nodular densities in other organs. She will follow-up with her primary care doctor. We did review again her sleep study and she is not qualify for CPAP therapy which is also good. However, she does have periodic leg movement and does need oxygen supplementation. 12/17/2020 the patient is here for pulmonary follow-up visit. Overall the patient has been doing better. She continues to use the oxygen on 2 L continuous 24 hours today. 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 However after many months she has not heard anything from the [employer] company. A good result to the incomplete myself and they will make arrangements soon in order to test her for the pulsed valve. The patient continues with recurrent respiratory therapy which appears to be effective for. She has not required any prednisone or antibiotics. She did recover from COVID-19. She is hopefully getting the vaccine sometime in January once she completes 3 months from her initial illness. 11/10/2022 the patient is here for a pulmonary follow-up visit. The patient overall has been feeling better. She is using the oxygen with good response. She did not qualify for the POC because she really does not need the house that much. Still, she is getting benefit from the oxygen supplementation. I did request that she can take off her oxygen at rest and check her oxygen numbers. If they are above 92% she can take a break from the oxygen supplementation. She we did review her last chest x-ray that she had back in June 2023 after a fall demonstrating persistent elevation of the right hemidiaphragm significantly. This chest x-ray continues to be abnormal. The question is that she has any airway obstructions therefore the only way of finding out is to do a CT scan to assess the abnormal chest x-ray. Will follow-up with a CT scan at this time. She continues use respiratory meds with good effect. 12/07/2023 the patient is here for a pulmonary follow-up visit. The patient has been doing well from a respiratory status. Has been using her inhalers as prescribed. She is getting worsening memory cognitive impairment. She does take medications for it. The family is concerned for underlying dementia. She will follow-up with her primary care doctor soon to make sure that her medications can be further optimized in view of the cognitive decline. From a respiratory status she is doing better with her sleep. Now she is on gabapentin and trazodone. The combination seems to be very effective for her. She is using the oxygen at 2 L with activity and with sleep/ At this time the patient does benefit the oxygen and she does require it. No recent imaging studies at this time. Her last CT scan was back 2022 demonstrating the atelectasis and pulmonary nodules. No additional imaging studies are warranted specially since she is doing well. If the patient is to develop worsening respiratory symptoms we can re-evaluate the need for further imaging studies then. 08/11/2024 the patient is here for a pulmonary follow-up visit. The patient has multiple complaints. Her daughter though tells me that she is having issues with dementia and forgetfulness. She does complaint of a headache. This happened after having COVID. It affects mainly the sinuses area. She is not taking any allergy medicine her nasal sprays and I do think that she could at least give it a trial for a month and see if she gets any relief from any kind of sinus inflammation and tenderness. In addition to that she does complaint of right-sided chest discomfort. She does have an elevated right hemidiaphragm with minimal expansion of the right lung. Likely getting obstructed at times and resulting in the some discomfort. Initially we talked about some antibiotics with the patient right now is doing okay. If she were to worsen she can always call and I consider a course of doxycycline. For now the patient will work on deep breathing exercises I gave her an incentive spirometer that she can work with. The patient is also continue to use the oxygen. The oxygen therapy has been affecting beneficial. She will continue to use it regularly. She can take breaks when she is resting as long as the oxygens above 90%. Her last CT scan of the chest was back in 2022 demonstrating pulmonary nodules. Also the elevated hemidiaphragm on the right side with significant atelectasis. In view of her worsening and persistent symptoms will go ahead and request a repeat CT scan at this time. 11/11/2024 the patient is here for a pulmonary follow-up visit. Overall she is doing okay. She does complaint of worsening cough some chest congestion. [id number] severity. She feels as because she ran out of her medications several weeks ago. I will go ahead and send all the medications the pharmacy. She will monitor closely her symptoms that they do not get better she will call me so I can further adjust her therapy. In the meantime she did undergo a CT scan of the chest which I personally reviewed demonstrating the chronic elevation of the diaphragm on the right side in addition to the atelectasis. That looks about the same. This is a chronic issue. Pulmonary nodules appear to be stable. At this point will continue with the current respiratory therapy continue with the oxygen supplementation and will follow-up in the fall 2024. She has any issues prior to that she will call for an earlier assessment. [facility] Medical History (Updated 08/11/24 @ 14:05 by Rip Louie MD) Pulmonary nodules Abnormal chest x-ray Thyroid nodule Frequent headaches Insomnia Asthma-COPD overlap syndrome Abnormality of lung on CXR Elevated diaphragm Pleural effusion Asthma Restrictive lung disease Surgical History History of surgery History of carpal tunnel surgery History of hysterectomy History of inguinal hernia repair Family History Mother No problems noted. Father No problems noted. Social History Alcohol intake: never Patient Tobacco Use Status: Never used Tobacco Review of Systems Const Reports difficulty sleeping, Reports fatigue, Reports headache(s) and Denies night sweats ENT Denies change in voice, Reports vertigo, Reports dizziness, Reports headache(s), Denies lip swelling, Denies mouth pain and Denies tongue swelling Card Denies chest pain and Reports dyspnea on exertion Resp Reports chest congestion, Reports cough and Reports dyspnea on exertion GI Denies abdominal pain Musc Denies no additional complaints Neuro Denies confusion, Reports vertigo, Reports dizziness, Reports headache(s) and Reports memory loss Psych Denies no additional complaints, Denies confusion and Reports memory loss Endo Reports fatigue Lee/Lymph Denies easy bleeding and Denies lymphadenopathy Aller/Immun Denies lip swelling and Denies tongue swelling Physical Exam Vital Signs: Last Vital Signs Pulse 73 11/11/24 14:11 BP 152/78 H 11/11/24 14:11 Pulse Ox 94 11/11/24 14:11 Oxygen Delivery Method Nasal Cannula 11/11/24 14:11 Oxygen Flow Rate 3 11/11/24 14:11 BMI result Body Mass Index 35.1 Const General: No confusion Orientation/consciousness: No confusion Neck Neck: Yes normal visual inspection, Yes full ROM and Yes no lymphadenopathy Chest Chest palpation & inspection: normal inspection of the chest Resp Auscultation: no crackles, no rales, no rhonchi, no wheezes and diminished lung sounds Cardio Rate: regular rate Rhythm: regular rhythm Heart sounds: S1 normal heart sound present and S2 normal heart sound present GI Palpation (GI): Soft to palpation and nontender Auscultation: normal bowel sounds Skin General skin exam: rashes and/or lesions noted Neuro General: No confusion Results Reviewed Results Reviewed: [address] [address] [address] Scan Report Signed Patient: Aminata Shaver MR#: [id number] : 1950 Acct:[id number] Age/Sex: 73 / F ADM Date: 09/22/24 Loc: HO.CT Attending Dr: Rip Louie MD Ordering Physician: Rip Louie MD Date of Service: 09/22/24 Procedure(s): CT chest wo IV con Accession Number(s): [id number] cc: Suzanna Dao MD; Rip Louie MD~ Report Number: [id number]: Total DLP = 183.00 mGy-cm CLINICAL HISTORY: R91.8 - Other nonspecific abnormal finding of lung field CT chest without contrast Comparison: CT/SR - CT CHEST WO IV CON - 11/21/22 11:06 EDT Findings: No significant cardiomegaly. Trace pericardial effusion. No mediastinal adenopathy or suspicious thyroid lesion. Minimal atherosclerotic disease of the coronary arteries. Significant elevation of the right hemidiaphragm with prominent subjacent atelectasis, not appreciably changed. Few scattered stable sub 5 mm nodules. No new, increasing or suspicious nodule. No effusion. No pneumothorax. Visualized upper abdomen demonstrates no acute process. The right kidney is lobular with a small stable exophytic cysts. Impression: Stable chronic findings. No acute or suspicious abnormality. This document has been electronically signed by: Madi Glynn MD on 09/23/2024 17:18:08 Dictated By: Madi Glynn MD Signed By: <Electronically signed by Madi Glynn MD in OV> 09/23/241718 DD/ 17 TD/TT: 09/23/241717 Centrifugal Screen Tender: Assessment & Plan Assessment & Plan (1) Restrictive lung disease: Code(s): J98.4 - Other disorders of lung Category: Medical (2) Elevated diaphragm: Code(s): J98.6 - Disorders of diaphragm Category: Medical (3) Abnormality of lung on CXR: Code(s): R91.8 - Other nonspecific abnormal finding of lung field Category: Medical (4) Asthma-COPD overlap syndrome: Code(s): J44.9 - Chronic obstructive pulmonary disease, unspecified Category: Medical (5) Insomnia: Code(s): G47.00 - Insomnia, unspecified Category: Medical Qualifiers: Insomnia type: primary Qualified Code(s): F51.01 - Primary insomnia (6) Pulmonary nodules: Code(s): R91.8 - Other nonspecific abnormal finding of lung field Category: Medical (7) Frequent headaches: Code(s): R51.9 - Headache, unspecified Category: Medical Plan Continue Symbicort BID oxygen 2 Liters/pulse with activity and 2L with sleep SHEY as needed continue gabapentin 400 mg p.o. q.h.s. Claritin Fluticasone nasal spray Follow up 4-6 months Medications: New meclizine 12.5 mg PO TID PRN 30 tabs 0RF dizziness 14 days Coding Level of Care Code Est Pt Level 4 (65305) Complex EM visit Add On G2211 Diagnoses Restrictive lung disease J98.4 Elevated diaphragm J98.6 Abnormality of lung on CXR R91.8 Asthma-COPD overlap syndrome J44.9 Primary insomnia F51.01 Insomnia type: primary Pulmonary nodules R91.8 Frequent headaches R51.9 Time Spent (min) 17
--- OUTSIDE RECORDS SUMMARY | 2024-11-11 15:43 | XMS_ITS | Encounter Summary ---
Author Organization [employer] Address [address] [place] [address] Care Team Providers Care [employer] Name Role Phone Suzanna Dao MD Primary Care Provider + Reason for Visit * Reason Comments Med Refill Encounter Details Date Type Department Care Team ([facility] st Contact Info) Description 11/03/2024 Refill [facility] [address], [place] [phone] Niecy Nunez MD [address] [place] [address] Social History Tobacco Use Types Packs/Day Years [...] Care Team (Late st Contact Info) Description 12/15/2024 11:00 AM EDT Telemedicine [facility] [address] [place] [address] documented as of this encounter Visit Diagnoses Not on filedocumented in this encounter Care Teams [employer] Relationship Specialty Start Date End Date Suzanna Dao MD [address] [place] [address] PCP - General Family Medicine 07/21/19 documented as of this encounter
--- OUTSIDE RECORDS SUMMARY | 2024-11-11 15:43 | XMS_ITS | Clinical Summary ---
Author Organization [employer] Address [address] [place] [address] 7 [place] [address] Care Team Providers Care Supervisor Of Guidance And Testing Name Role Phone Suzanna Dao MD Primary [...] BY MOUTH EVERY DAY 90 tablet Active montelukast (Singulair) 10 MG tablet TAKE 1 TABLET BY MOUTH DAILY IN THE EVENING 90 tablet Active Januvia 25 MG tablet TAKE 1 TABLET BY MOUTH EVERY DAY 90 tablet Active Lancets (OneTouch Delica Plus Bubnms50I) misc Apply 1 each topically 2 times daily. 100 each Active amLODIPine (Norvasc) 10 MG tablet Take 1 tablet (10 mg) by mouth Once per day. 90 tablet Active cholecalcifero l (Vitamin D High Potency) 25 MCG (1000 UT) capsule Take 1 capsule (25 mcg) by mouth Once per day. 90 capsule 2024 Active OneTouch Ultra test strip TEST BLOOD SUGAR TWICE DAILY 100 strip Active memantine (Namenda) 5 MG tabletIndicati ons: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) Take 1 tablet (5 mg) by mouth in the morning. 30 tablet Active fluticasone (Flonase) 50 MCG/ACT nasal spray [...] 1 tablet by mouth 3 times daily. Active acetaminophen (Tylenol 8 Hour) 650 MG ER tablet TAKE 1 TABLET BY MOUTH EVERY 8 HOURS NEEDED FOR MILD PAIN DO NOT BREAK, CRUSH, DISSOLVE OR CHEW 90 tablet 1 025 Active pentoxifylline (Trental) 400 MG ER tablet Take 1 tablet (400 mg) by mouth 2 times daily. 60 tablet 11 025 Active acetaminophen (Acetaminophen 8 Hour) 650 MG ER tablet Take 1 tablet (650 mg) by mouth every 8 (eight) hours if needed for mild pain. Do not crush, chew, or split. 90 tablet 1 025 2024 Discontinued pentoxifylline (Trental) 400 MG ER tablet Take 1 tablet by mouth 2 times daily. 025 2024 Discontinued(R eorder (will not trigger notification to Pharmacy)) Active Problems Problem Noted Date Diagnosed Date Pulmonary emphysema, unspecified emphysema type 01/07/2024 Assessment & Plan (09/14/2024 11:10 AM EST): Doing well with no recent exacerbations. Continue on O2 prn. Continue Albuterol + Symbicort. 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 Abdul for the f/u Dependence [...] EST): Needs toenail trimming, refer to new Laboratory Animal Caretaker. Metabolic encephalopathy 10/22/2022 Moderate persistent asthma with exacerbation Assessment & Plan (12/04/2022 3:03 PM EDT): Continue Symbicort. FU closely with middle school teacher Neck pain 10/22/2022 Neuropathy of left foot [...] EDT): Oxygen dependent Continue close fu with middle school teacher No change in medications Rib pain 10/22/2022 [...] FU in 3 months. Referral to new meat stuffer. Reminded to schedule eye clinic appointment. She [...] Encounters Date Type Department Care Team Description 11/03/2024 Refill [facility] MED[facility]INE [address] [place] [address] Niecy Nunez MD 11/02/2024 Refill [facility] [address] [place], [place] [phone] Suzanna Dao MD 10/20/2024 11:00 AM EST Telemedicine [facility] MED[facility]INE [address] [place] [address] Octavia Garcia, Clarke Type 2 diabetes mellitus with stage 3 chronic kidney disease, without long-term current use of insulin, unspecified whether stage 3a or 3b CKD (CMS/HCC) (Primary Dx); Stage 3b chronic kidney disease ([facility]); Restrictive lung disease; Pulmonary emphysema, unspecified emphysema type ([facility]/HCC); Moderate persistent asthma with exacerbation; Chronic diastolic heart failure ([facility]/HCC) 10/07/[address] [address] Suzanna Dao MD December recall 09/30/[address] [address] Suzanna Dao MD Durable Medical Equipment (Incontinence Supplies) 09/22/2024 Orders Only [facility] External Provider, [facility] 09/14/2024 10:15 AM EST Office Visit [address] [address] Suzanna Dao MD Type 2 diabetes mellitus with stage 3 chronic kidney disease, without long-term current use of insulin, unspecified whether stage 3a or 3b CKD ([facility]) (Primary Dx); Mild vascular dementia with mood disturbance ([facility]); Pulmonary emphysema, unspecified emphysema type ([facility]); Recurrent major depressive disorder, in partial remission ([facility]); Hearing loss of left ear, unspecified hearing loss type; Hearing loss of right ear, unspecified hearing loss type; Long toenail; Encounter for immunization 09/14/2024 Travel 09/13/[address] [address] Mallory Wynne MA Chart prep 09/08/2024 Patient Outreach [address] [phone] Suzanna Dao MD Pre-visit Planning (SDOH screening negative and tobacco screening negative) 09/05/[address] [phone] Suzanna Dao MD 08/29/[address] [phone] Suzanna Dao MD Durable Medical Equipment (Home Care Delivered Form) from Last 3 Months Immunizations Name Administration Dates Next Due Influenza High-dose Quadriva lent Preservative Free 08/05/2023,06/25/2022,06/10/2021 Influenza Quadrivalent Adjuvanted 07/13/2020 Influenza, High Dose Seasona deven, Preservative Free 09/14/2024,07/12/2019 Influenza, IIV3, injectable 08/05/2023,1 ,06/10/2021,07/13,07/12/2019 Pfizer Covid-19 Vaccine 12+ 09/14/2024, Pfizer Covid-19 Vaccine 12+ Bivalent 06/25/2022 Pneumococcal [...] Info) Description 12/15/2024 11:00 AM EDT Telemedicine [facility] MEDICINE [address] [place] [phone] Health Maintenance Due Date Last Done Comments Eye Exam 1960 Alcohol/Substance Use Screening 1960 [...] Procedure Name Priority Date/Time Associated Diagnosis Comments AMB REFERRAL TO AUDIOLOGY Routine 10/07/2024 Hearing loss of right ear, unspecified hearing loss type CT CHEST WO CONTRAST Routine 09/23/2024 5:18 [...] Recently Relevant to Health Maintenance Results * Referral to Audiology (10/07/2024) us Suzanna Dao MD OUTPATIENT REFERRAL DEMARCUS MAE Final Result * CT Chest w/o Contrast (09/23/2024 5:18 PM EST) Anatomical Region Laterality Modality Body, Chest Computed Tomogra phy 09/23/2024 5:18 PM EST Narrative 09/23/2024 5:19 PM EST ? [facility] ?[address] ?[place] [address] ? CT Scan Report ? Signed ? Patient: Kalen Delgadillo,Aminata ?MR#: [id number] ? : 1950 ?Acct:[id number] ? Age/Sex: 73 / F ?ADM Date: 09/22/24 ? Loc: HO.CT ? Attending Dr: Rip Louie MD ? Ordering Physician: Rip Louie MD ?? Date of Service: 09/22/24 ?? Procedure(s): CT chest wo IV con ?? Accession Number(s): [id number] ? cc: Suzanna Dao MD; Rip Louie MD ? Report Number: ?? [id number]: Total DLP = ??183.00 mGy-cm ? CLINICAL [...] by Madi Glynn MD in OV> ? 09/23/241718 ? DD/ ? TD/TT: 09/23/241717 ? Clinical Systems Educator: ? Procedure Note Donotuseinterpreter, Image - 09/23/[address] [place] [address] [address] Scan Report Signed Patient: Almaz Shaver#: [id number] : 9Acct:[id number] Age/Sex: 73 / FADM Date: 09/22/24 Loc: HO.CT Attending Dr: Rip Louie MD Ordering Physician: Rip Louie MD Date of Service: 09/22/24 Procedure(s): CT chest wo IV con Accession Number(s): [id number] cc: Suzanna Dao MD; Rip Louie MD Report Number: [id number]: Total DLP = 183.00 mGy-cm CLINICAL HISTORY: [...] in OV> 09/23/241718 DD/ 17 TD/TT: 09/23/241717 Clinical Systems Educator: [facility] External Provider IMG CT PROCEDURES Edited Result - Final * XR Sinus 3 Views (09/22/2024 4:45 PM EST) Anatomical Region Laterality Modality Radiographic [place] ging 09/22/2024 4:45 PM EST Narrative 09/23/2024 3:46 PM EST ? [facility] ?[address] ?[place], [place] [address] ?XRay Report ? Signed ? Patient: Kalen Delgadillo,Aminata ?MR#: [id number] ?? [id number] ? : 1950 ?Acct:[id number] ? Age/Sex: 73 / F ?ADM Date: 09/22/24 ? Loc: HO.CT ? Attending Dr: Rip Louie MD ? Ordering Physician: Rip Louie MD ?? Date of Service: 09/22/24 ?? Procedure(s): XR sinus min 3V ?? Accession Number(s): [id number] ? cc: Suzanna Dao MD; Rip Louie [...] DD/ 1645 ? TD/TT: 09/22/24 1658 ? Clinical Systems Educator: ? Procedure Soni Otoole - 09/23/[address] [place] [address] XRay Report Signed Patient: HigueraAlmaz Paz#: [id number] : 9Acct:[id number] Age/Sex: 73 / FADM Date: 09/22/24 Loc: HO.CT Attending Dr: Rip Louie MD Ordering Physician: Rip Louie MD Date of Service: 09/22/24 Procedure(s): XR sinus min 3V Accession Number(s): [id number] cc: Suzanna Dao MD; Rip Louie MD [...] 09/23/24 1543 DD/ 1645 TD/TT: 09/22/24 1658 Clinical Systems Educator: Result [facility] External Provider IMG XR PROCEDURES Edited [...] Media Lot # [id number] Lot# Expiration Date [id number] Blood Capillary blood specimen / Unknown 09/14/2024 10:21 AM EST Suzanna Doa MD POINT OF CARE TE ST ENTER/EDIT ORDERABLES Edited Result - Final * (ABNORMAL) LIPID PANEL, STANDARD (04/02/2021 2:36 PM EDT) Chol/HDLC Ratio 3.2 <5.0 (calc) [facility] Cholesterol, Total 146 <200 mg/dL [facility] HDL Cholesterol 46(L) > OR = 50 mg/dL [facility] LDL Cholesterol 79 mg/dL (calc) [facility] Comment: Reference range: <100 ?? [...] ?? Dontae REDD et al. LLOYD. 2013;310(19): 6437-1816 ?? (http://education.[employer].sli.do/faq/EGQ207) Non-HDL Cholesterol 100 <130 mg/dL (calc) [facility] Comment: For patients with diabetes plus 1 major ASCVD risk ?? factor, treating to a non-HDL-C goal of <100 mg/dL ?? (LDL-C of <70 mg/dL) is considered a therapeutic ?? option. Triglycerides 116 <150 mg/dL [facility] 04/02/2021 2:36 PM EDT us Suzanna Dao MD LAB BLOOD ORDERABLES Fin al Result [facility] [address] from Last 3 Months or Most Recently Relevant to Health Maintenance Insurance [facility] Advance Directives Documents on File Type Date Recorded Patient Wood Technologist Expl anation Advance Directives and Living Will 11/11/2024 3:19 PM Health Care Proxy Care Teams Supervisor Of Guidance And Testing Relationship Specialty Start Date End Date Suzanna Dao MD [address] [place] [id number] PCP - General Family Medicine 07/21/19
--- OUTSIDE RECORDS SUMMARY | 2024-11-11 15:43 | XMS_ITS | Encounter Summary ---
Author Organization [employer] Address [address] [place] [address] Care Team Providers Care Prize Coordinator Name Role Phone Suzanna Dao MD Primary Care Provider + Encounter Details Date Type Department Care Team ([facility] Contact Info) Description 03/03/2023 Orders Only [facility]EDS [address] [place], [place] [phone] Vickie Patel LPN Social History Tobacco Use [...] Department Care Team (Late Contact Info) Description 12/15/2024 11:00 AM EDT Telemedicine [facility] MEDICINE [address] [place], [place] [phone] documented as of this encounter Visit Diagnoses Not on filedocumented in this encounter Care Teams Prize Coordinator Relationship Specialty Start Date End Date Suzanna Dao MD [address] [place], [place] [phone] PCP - General Family Medicine 07/21/19 documented as of this encounter
--- OUTSIDE RECORDS SUMMARY | 2024-11-11 15:43 | XMS_ITS | Encounter Summary ---
Author Organization [employer] Address [address] [facility] 7 [place] [address] Care Team Providers Care Loader Demolder Name Role Phone Suzanna Dao MD Primary Care Provider + Reason for Visit * Reason Comments Med Refill Encounter Details Date Type Department Care Team ([facility] st Contact Info) Description 04/11/2024 Refill [facility] MEDICINE [address] [place], [place] [phone] Suzanna Dao MD [address] [place] [address] Social History Tobacco Use Types Packs/Day Years [...] t he electric, gas, oil or water [employer] threatened to shut off services in your [...] Info) Description 12/15/2024 11:00 AM EDT Telemedicine [facility] MEDICINE [address] [place] [address] documented as of this encounter Visit Diagnoses Not on filedocumented in this encounter Care Teams Loader Demolder Relationship Specialty Start Date End Date Suzanna Dao MD [address] [place] [address] PCP - General Family Medicine 07/21/19 documented as of this encounter
--- OUTSIDE RECORDS SUMMARY | 2024-11-11 15:43 | XMS_ITS | Clinical Summary ---
Author Organization [facility] Address [address] [place] [address] Phone Care Team Providers Care Paving Bed Maker Name Role Phone Suzanna Dao MD Primary Care Provider + [phone] Allergies Active Allergy Reactions Criticality Noted Date [...] mouth 1 (one) time each day 90 tablet 3 5 10/10/19 26 Active Active Problems Problem Noted Date Diagnosed Date Emphysema 01/07/2024 Overview (05/23/2024): Last Assessment & Plan: Followed by employee's representative, she is O2 dependent, continue at 3L [...] 09/19/2024 Office Communication [facility] [address] [place] [phone] Kristopher Martinez 09/16/2024 Telephone [facility] [address] [place] [phone] Debra Fuentes from Last 3 Months Family [...] Upcoming Encounters Date Type Department Care Team (Latest Contact Info) Description 11/20/2024 Orders Only [facility] [address] [place] [phone] Grey Prado MD [address] [phone] Chronic kidney disease stage 3 (HCC); Chronic diastolic heart failure (HCC); Other acute kidney failure (HCC); Hypertensive disorder; Hypertensive renal disease; 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 P.. [address] [phone] Grey Prado MD [address] [phone] Health Maintenance Due Date Last Done Comments Diabetes: Ophthalmology Exam 10/08/2020 Diabetes: Pedal Pulse [...] 1.80(A) 0.50 - 1.10 mg/dL eGFR Non-Afr Guinean 28 eGFR 32 Hemoglobin A1C 5.1 4.0 - 6.0 05/13/2021 us Historical Provider LAB BLOOD ORDERABLES Jocelyn l Result from Last 3 Months or Most Recently Relevant to Health Maintenance Insurance [place] [id number] [facility] ([id number]) Care Teams Paving Bed Maker Relationship Specialty Start Date End Date Suzanna Dao MD [address] [place] [address] PCP - General Internal Medicine 05/29/21
--- OUTSIDE RECORDS SUMMARY | 2024-11-11 15:43 | XMS_ITS | Clinical Summary ---
Author Organization 175 [facility] Address [address] [place] [address] Phone Care Team Providers Care Kaiwhakahaere Name Role Phone Suzanna Dao MD Primary Care Provider Social History Tobacco Use Types Packs/Day Years Used Date Smoking Tobacco: Never Assessed Comments Unknown Sex and Gender Information Value Date Recorded Sex Assigned at Not on file Legal Sex Female 7:05 AM EST Gender Identity Not on file Sexual Orientation Not on file Plan of Treatment Upcoming Encounters Date Type Department Care Team (Late st Contact Info) Description 11/30/2024 2:30 PM EDT Consult Orthopedic Surgery - [place] [address] [phone] Jose Cannon, DPGeo [address] [address] Health Maintenance Due Date Last Done Comments Diabetes: Annual GFR (Glomer ular Filtration Rate) 1950 Diabetes: Annual Foot Exam 1958 Diabetes: Annual Retina Eye Exam 1958 DTaP,Tdap,and Td Vaccines (1 - Tdap) 1967 Pneumococcal Vaccine: 50+ Ye ars (1 of 2 - PCV) 1967 Zoster Vaccines (1 of 2) 1998 RSV Immunization Patients 60 + Years Old (1 - 1-dose 75+ series) 2023 COVID-19 Vaccine (1 - 2023-2 5 season) 2024 Influenza Vaccine (#1) 2024 Cholesterol Screening (Lipid Panel) 10/11/2024 Depression Screening 10/11/2024 Diabetes: Annual Urine Albumin-Creatinine Ratio (uACR) 10/11/2024 Diabetes: Blood Sugar Contro l Test (HGBA1C) 10/11/2024 Falls Risk Assessment 10/11/2024 Hepatitis C Screening 10/11/2024 Medicare Annual Wellness Visit 10/11/2024 Osteoporosis Screening (Bone Density Screening) 10/11/2024 Social Influencers of Health Screening 10/11/2024 HIB Vaccines Aged Out No longer eligi [...] patient's age to complete this topic Meningococcal B Vacine Aged Out No lo nger eligible based on patient's age to complete this topic RSV Immunization Patients Un danisha 20 months Aged Out No longer eligible b ased on patient's age to complete this topic Varicella Vaccines Aged Out No longer eligible based on patient's age to complete this topic Insurance [place]ICA[place] - [place] [facility] [employer] Care Teams Kaiwhakahaere Relationship Specialty Start Date End Date Suzanna Dao MD [address] [place] [phone] PCP - General Internal Medicine 10/11/24
--- OUTSIDE RECORDS SUMMARY | 2024-11-11 15:43 | XMS_ITS | Encounter Summary ---
Author Organization [employer] Address 75 [facility] 7 [place] [address] Care Team Providers Care [facility] Network Pricing Consultant Name Role Phone Suzanna Dao MD Primary Care Provider + Reason for Visit * Reason Comments Med Refill Encounter Details Date Type Department Care Team ([facility] st Contact Info) Description 11/02/2024 Refill [facility] MEDICINE [address] [place], [place] [phone] Suzanna Dao MD [address] [place] [address] Social History Tobacco Use Types Packs/Day Years [...] t he electric, gas, oil or water [employer] threatened to shut off services in your [...] Info) Description 12/15/2024 11:00 AM EDT Telemedicine [facility] MEDICINE [address] [place] [address] documented as of this encounter Visit Diagnoses Not on filedocumented in this encounter Care Teams Healthcare Network Pricing Consultant Relationship Specialty Start Date End Date Suzanna Dao MD [address] [place] [address] PCP - General Family Medicine 07/21/19 documented as of this encounter
--- OUTSIDE RECORDS SUMMARY | 2024-11-11 15:43 | XMS_ITS | Encounter Summary ---
Author Organization [facility] Address 100 [facility] [address] [place] [address] Phone Care Team Providers Care Tire Finisher Name Role Phone Suzanna Dao MD Primary Care Provider + [phone] Encounter Details Date Type Department Care Team (Late Contact Info) Description 05/28/2022 Telephone [facility] [address] [place] [phone] Gurwinder Durand, DO [address] [place] [address] Social History Tobacco Use Types Packs/Day Years [...] refill for dilTIAZem CD. Please send to [facility] pharmacy Thank you documented in this encounter Plan of Treatment Upcoming Encounters Date Type Department Care Team (Latest Contact Info) Description 11/20/2024 Orders Only [facility] 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
--- OUTSIDE RECORDS SUMMARY | 2024-11-11 15:43 | XMS_ITS | Encounter Summary ---
Author Organization [employer] Address 75 [facility] 7 [place] [address] Care Team Providers Care Silviculture Teacher Name Role Phone Suzanna Dao MD Primary Care Provider + Reason for Visit * Reason Onset Date Comments Med Refill 11/20/2023 Encounter Details Date Type Department Care Team ([facility] st Contact Info) Description 11/20/2023 Refill [facility] MEDICINE [address] [place], [place] [phone] Niecy Nunez MD [address] [place], [place] [phone] Social History Tobacco Use Types Packs/Day Years [...] Info) Description 12/15/2024 11:00 AM EDT Telemedicine [facility] MEDICINE [address] [place] [address] documented as of this encounter Visit Diagnoses Not on filedocumented in this encounter Care Teams Silviculture Teacher Relationship Specialty Start Date End Date Suzanna Dao MD [address] [place] [address] PCP - General Family Medicine 07/21/19 documented as of this encounter
--- OUTSIDE RECORDS SUMMARY | 2024-11-11 15:43 | XMS_ITS | Encounter Summary ---
Author Organization [employer] Address [address] [facility] [address], [place] [address] Care Team Providers Care Outpatient Dietitian Name Role Phone Suzanna Dao MD Primary Care Provider + Reason for Visit * Reason Onset Date Comments FYI 10/01/2023 Encounter Details Date Type Department Care Team ([facility] st Contact Info) Description 10/01/2023 Telephone [facility] MEDICINE 230 [place], [place] [phone] Suzanna Dao MD [address] [place], [place] [phone] FYI Social History Tobacco Use Types Packs/Day [...] - 10/01/2023 1:44 PM EST [facility] [place] [facility] pt was not able to be admitted today 10/01/2023 but hespoke with pt daughter Suzanna and are able to admit her tomorrow 10/02/2023 . documented in this encounter Plan of Treatment Upcoming Encounters Date Type Department Care Team (Late st Contact Info) Description 12/15/2024 11:00 AM EDT Telemedicine [facility] MEDICINE [address] [place] [address] documented as of this encounter Visit Diagnoses Not on filedocumented in this encounter Care Teams Outpatient Dietitian Relationship Specialty Start Date End Date Suzanna Dao MD [address] [place] [address] PCP - General Family Medicine 07/21/19 documented as of this encounter
--- OUTSIDE RECORDS SUMMARY | 2024-11-11 15:43 | XMS_ITS | Encounter Summary ---
Author Organization [employer] Address [address] [place] [address] 7 [place] [address] Care Team Providers Care Machine Operator Replanter Name Role Phone Suzanna Dao MD Primary Care Provider + Reason for Visit * Reason Onset Date Comments Durable Medical Equipment 09/30/2024 Incont inence Supplies Encounter Details Date Type Department Care Team ([facility] st Contact Info) Description 09/30/2024 Telephone [facility] MEDICINE [address] [place], [place] [phone] Suzanna Dao MD [address] [place], [place] [phone] Durable Medical Equipment (Incontinence Supplies) Social History [...] * Telephone Encounter - Xochilt Louie - 10/26/2024 1:51 PM EST DME for Handheld shower signed and faxed to [facility]. Confirmation received and sent to [facility]. If patient calls to check status on above, please advise them to contact [facility] resident care coordinator . * Telephone Encounter - Xochilt Louie - [...] Info) Description 12/15/2024 11:00 AM EDT Telemedicine [facility] MEDICINE [address] [place] [phone] documented as of this encounter Visit Diagnoses Not on filedocumented in this encounter Care Teams Machine Operator Replanter Relationship Specialty Start Date End Date Suzanna Dao MD [address] [place] [address] PCP - General Family Medicine 07/21/19 documented as of this encounter
--- OUTSIDE RECORDS SUMMARY | 2024-11-11 15:43 | XMS_ITS | Encounter Summary ---
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
--- OUTSIDE RECORDS SUMMARY | 2024-11-11 15:43 | XMS_ITS | Encounter Summary ---
Author Organization [facility] Address [address] [place] [address] Phone Care Team Providers Care Inside Sales Lead Name Role Phone Suzanna Dao MD Primary Care Provider + [phone] Encounter Details Date Type Department Care Team (Late Contact Info) Description 01/29/2023 Telephone [facility] [address] [place] [address] Vickie Barros Social History Tobacco [...] EDT This PT is requesting a refill, Edbra is unavailable today if you could please fill this script for this PT. torsemide (DEMADEX) 20 MG tablet documented in this encounter Plan of Treatment Upcoming Encounters Date Type Department Care Team (Latest Contact Info) Description 11/20/2024 Orders Only [facility] 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
--- OUTSIDE RECORDS SUMMARY | 2024-11-11 15:43 | XMS_ITS | Encounter Summary ---
Author Organization [facility] Address [address] [facility] 200 [place] [address] Phone Care Team Providers Care Health Inspector Food Name Role Phone Suzanna Dao MD Primary Care Provider [phone] Encounter Details Date Type Department Care Team (Late st Contact Info) Description 11/28/2020 Orders Only [facility] [address] [facility] 200 [place] [address] Provider, MD Mark [address] [place], [place] [phone] Social History Tobacco Use Types Packs/Day Years Used Date Smoking Tobacco: Never Smokeless Tobacco: Never Alcohol Use Standard Drinks/Week Comments No 0 (1 standard drink = 0.6 oz pur e alcohol) Comments Unknown Sex and Gender Information Value Date Recorded Sex Assigned at Not on file Legal Sex Female 4:55 PM EST Gender Identity Not on file Sexual Orientation Not on file COVID-19 Exposure Response Date Recorded In the last month, have you been in contact with someone who was confirmed or suspected to have Coronavirus / COVID-19? No / Unsure 11/28/2020 4:25 PM EDT documented as of this encounter Plan of Treatment Upcoming Encounters Date Type Department Care Team (Latest Contact Info) Description 11/20/2024 Orders Only [facility] 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); Restrictive lung disease; Small vessel cerebrovascular disease 11/23/2024 10:20 AM EDT Office Visit [facility] [address] [address] Grey Prado MD [address] [address] documented as of this encounter Procedures Procedure Name Priority Date/Time Associated Diagnosis Comments EXT RESULT ENTRY Routine 11/28/2020 documented in this encounter Results * EXT RESULT ENTRY (11/28/2020) us Historical Provider LAB BLOOD ORDERABLES Jocelyn l Result documented in this encounter Visit Diagnoses Not on filedocumented in this encounter Care Teams Health Inspector Food Relationship Specialty Start Date End Date Suzanna Dao MD [address] [place] [address] PCP - General Internal Medicine 05/29/21 documented as of this encounter
--- OUTSIDE RECORDS SUMMARY | 2024-11-11 15:43 | XMS_ITS | Encounter Summary ---
Author Organization [facility] Address [address] [facility] 200 [place] [address] Phone Care Team Providers Care Dance Therapist Name Role Phone Suzanna Dao MD Primary Care Provider + [phone] Reason for Visit * Reason Comments Med Refill Encounter Details Date Type Department Care Team (Late st Contact Info) Description 04/22/2022 Refill [facility] [address] [id number] Gurwinder Durand, DO [address] [place] [address] Social History Tobacco Use Types Packs/Day Years [...] Only [facility] 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
--- OUTSIDE RECORDS SUMMARY | 2024-11-11 15:43 | XMS_ITS | Encounter Summary ---
Author Organization [employer] Address [address] [address] Care Team Providers Care Rehab Liaison Name Role Phone Suzanna Dao MD Primary Care Provider + Reason for Visit * Reason Onset Date Comments Med Refill 11/20/2023 Encounter Details Date Type Department Care Team ([facility] st Contact Info) Description 11/20/2023 Refill [facility] MED[facility]INE [address] [place], [place] [phone] Marysol Dior MD [address] [place] [address] Social History Tobacco Use Types Packs/Day Years [...] Info) Description 12/15/2024 11:00 AM EDT Telemedicine [facility] [address] [place] [address] documented as of this encounter Visit Diagnoses Not on filedocumented in this encounter Care Teams Rehab Liaison Relationship Specialty Start Date End Date Suzanna Dao MD [address] [place] [address] PCP - General Family Medicine 07/21/19 documented as of this encounter
--- OUTSIDE RECORDS SUMMARY | 2024-11-11 15:43 | XMS_ITS | Encounter Summary ---
Author Organization [employer] Address [address] [place] [address], [place] [address] Care Team Providers Care Manager Corporate Marketing Name Role Phone Suzanna Dao MD Primary Care Provider + Encounter Details Date Type Department Care Team ([facility] Contact Info) Description 12/24/2022 Orders Only [facility] [address] [place] [phone] Vickie Patel LPN Social History Tobacco Use [...] 12/15/2024 11:00 AM EDT Telemedicine [facility] MED[facility]INE [address] [place], [place] [phone] documented as of this encounter Visit Diagnoses Not on filedocumented in this encounter Care Teams Manager Corporate Marketing Relationship Specialty Start Date End Date Suzanna Dao MD [address] [place] [address] PCP - General Family Medicine 07/21/19 documented as of this encounter
--- OUTSIDE RECORDS SUMMARY | 2024-11-11 15:43 | XMS_ITS | Encounter Summary ---
Author Organization [facility] Address [address] [place] [address] [address] [address] Care Team Providers Care Wrapper Hand Name Role Phone Suzanna Dao MD Primary Care Provider + Reason for Referral * Consultation (Routine) - Authorized Specialty Diagnoses / Procedures Referred By Contac t Referred To Contact Optometry Diagnoses Type 2 diabetes mellitus with stage 3 chronic kidney disease, without long-term current use of insulin, unspecified whether stage 3a or 3b CKD (CMS/HCC) Suzanna Dao MD [address] [place] [address] Phone: tel: fax: [facility] [address] [place] [address] Phone: tel: fax: Referral ID Status Reason Start Date Expiration Date Visits Requested Visits Authorized [id number] Authorized Consult and Treat 10/20/2024 10/20/2025 1 1 * Consultation (Routine) - Authorized Specialty Diagnoses / Procedures Referred By Contac t Referred To Contact Dental Bricklayer / Dentistry Diagnoses Type 2 diabetes mellitus with stage 3 chronic kidney disease, without long-term current use of insulin, unspecified whether stage 3a or 3b CKD (CMS/HCC) Suzanna Dao MD [address] [place] [id number] Phone: tel: fax: Referral ID Status Reason Start Date Expiration Date Visits Requested Visits Authorized [id number] Authorized Consult and Treat 10/20/2024 10/20/2025 1 1 Reason for Visit * Consultation (Routine) - Authorized Specialty Diagnoses / Procedures Referred By Contac t Referred To Contact Pharmacy Diagnoses Pulmonary emphysema, unspecified emphysema type (CMS/HCC) Restrictive lung disease Stage 3b chronic kidney disease (CMS/HCC) Type 2 diabetes mellitus with stage 3 chronic kidney disease, without long-term current use of insulin, unspecified whether stage 3a or 3b CKD (CMS/HCC) Suzanna Dao MD [address] [place] [address] Phone: tel: fax: Referral ID Status Reason Start Date Expiration Date Visits Requested Visits Authorized [id number] Authorized Continuity of Care 09/13/2024 09/13/2025 6 6 Encounter Details Date Type Department Care Team (Late st Contact Info) Description 10/20/2024 11:[address] [facility] [address] [place] [phone] Octavia Garcia PharmD [address] [place] [address] Type 2 diabetes mellitus with stage 3 chronic kidney disease, without long-term current use of insulin, unspecified whether stage 3a or 3b CKD (CMS/HCC) (Primary Dx); Stage 3b chronic kidney disease (CMS/HCC); Restrictive lung disease; Pulmonary emphysema, unspecified emphysema type (CMS/HCC); Moderate persistent asthma with exacerbation; Chronic diastolic heart failure (CMS/HCC) Social History Tobacco Use Types Packs/Day [...] as of this encounter Progress Notes * Octavia Garcia PharmD - 10/20/2024 11:00 AM EST Pharmacy Consult Visit Type: MTM Visit Pharmacist: Octavia Gracia PharmD Referral Diagnosis: Pulmonary emphysema, restrictive lung disease, CKD, T2DM Referral Expiration: 09/13/25 Referring Provider: Dr. Dao Pharmacy Recommendations for Provider: Pharmacist reviewed current medications for renal dose adjustments. Per clinical pharmacology, the following dose adjustments are recommended: Please consider dose decrease of famotidine to 10 mg once daily as CrCl <30 mL/min Since patient receives monthly medboxes, please contact medbox pharmacist with any medication changes (initiations, discontinuation, dose adjustments) Background/ Visit Intake Aminata Delgadillo is a 73 y.o. patient here for a follow-up visit. Visit completed over the phone with their daughter Suzanna. Allergies: is allergic to aspirin, clopidogrel, and penicillin g. Preferred Pharmacy: [facility] [address] [facility] [address] [facility] [id number] Medbox: Yes, last medbox on 10/14/24 . Assessment & Plan Adherence: History: Adherence: Medication Organization: Uses medboxes from [facility] pharmacy Patient reported initial dissatisfaction with medboxes as they had received 1-2 weeks supply for their very first medbox. Pharmacist made patient aware that this was due to insurance and lining up ofrefills in order to start medboxes, and that from now on they are to receive monthly supplies. Patient confirmed understanding and agreeable to plan. Patient requested that torsemide to be moved from the PM slot to the AM slot of the medbox, as theyreported experiencing nighttime urination. Missed doses: Denies missed doses Patient reports having an Keena speaker that reminds them when it is time to take their medications. Read/Write: Yes, in Portuguese Goals of therapy: Improve adherence & minimize missed doses (<2 missed doses/week) Recommendations/Monitoring: Since patient receives monthly medboxes, please contact medbox pharmacist with any medication changes (initiations, discontinuation, dose adjustments) Pharmacist relayed changes to medbox medication set-up to medbox team. Cardiovascular (HTN, CHF, intermittent claudication, small vessel cerebrovascular disease, stroke) Pharmacologic Therapy: Amlodipine 10 mg oral once daily Carvedilol 25 mg oral twice daily Hydralazine 100 mg oral three times daily Torsemide 20 mg (2 tabs) oral once daily Pentoxifylline ER 400 mg oral twice daily Atorvastatin 40 mg oral once daily History: Follows with [facility] cardiology. Last visit 05/19/24 Patient reports having a home BP monitor, however denies SMBP. Reports that they have a visiting nurse that comes to check their BP, and that it is always good .However, patient unable to recall BP values at this time. Patient reports that they experience headaches, ever since they were sick with COVID . Patient reports that PCP had given them an RX for acetaminophen for this, and reports some relief with use. Patient denies checking BP during these episodes. Pertinent negatives include chest pain. Recent Blood Pressure values: BP Readings from Last 4 Encounters: 09/15/24 (!) 150/72 09/14/24 (!) 160/75 01/07/24 (!) 153/75 10/08/23 133/72 Pulse Readings from Last 4 Encounters: 09/15/24 78 09/14/24 83 01/07/24 65 10/08/23 69 Lab monitoring Lab Results Component Value Date NA 147 (H) 01/07/2024 K 4.0 01/07/2024 CREATININE 1.86 (H) 01/07/2024 EGFR 26 01/07/2024 No results found for: CHOL , LDLCHOLCAL , HDL , TRIG , AST , ALT , ALKPHOS , BILITOT The ASCVD Risk score (Gordon BRAND, et al., 2019) failed to calculate for the following reasons: Risk score cannot be calculated because patient has a medical history suggesting prior/existing ASCVD Goals of Therapy: Per JNC 8: Achieve & maintain BP <140/90mmHg Per ACC/AHA 2018 Cholesterol Guidelines: Ensure evidence based and safe use of medications for secondary prevention of ASCVD. Plan: Patient instructed to SMBP daily and log results. Patient reported understanding. Adjustments to medication regimen to be further evaluated upon review of SMBP at follow up visit. Upon further review of SMBP, if elevated above goal at >140/90 mmHg, please consider initiation of losartan 25 mg once daily for additional BP lowering effect. BMP to be monitored 2-4 weeks following potential initiation of ARB therapy. Patient due for annual FLP and LFTs. Actively ordered in EHR, needs collection. Patient encouraged to complete outstanding labwork. Upon return of updated FLP if LDL >70 mg/dL, please consider dose increase of atorvastatin from 40 mg to 80 mg once daily for additional cholesterol lowering effect for ASCVD secondary prevention. Monitoring of FLP and LFTs recommended 4-12 weeks following potential dose increase of statin therapy. Education: Counseling provided to SMBP & log results for review in follow up. Reviewed BP goals, patient instructed to call office if extremes of BP are noted prior to follow up. Chronic Kidney Disease (stage 4 (eGFR 15-29)) Pharmacologic Therapy: None History Follows with [facility]rology ([facility] Last visit 05/23/24. Labs monitoring: Lab Results Component Value Date EGFR 26 01/07/2024 EGFR 26 12/20/2021 CREATININE 1.86 (H) 01/07/2024 CREATININE 1.92 (H) 12/20/2021 Microalbumin, urine 10 01/07/2024 CrCl (AdjBW) = 26.7 mL/min as of 01/07/24 Goals of Therapy: Ensure safe & appropriate medication use in the setting of declining renal function. Plan: Continue to follow up with nephrology (next visit scheduled 11/23/24) Pharmacist reviewed current medications for renal dose adjustments. Per clinical pharmacology, the following dose adjustments are recommended: Please consider dose decrease of famotidine to 10 mg once daily as CrCl <30 mL/min Asthma/ Pulmonary Emphysema Pharmacologic Therapy: Symbicort 160/4.5 mcg 2 puffs twice daily Montelukast 10 mg oral once daily Albuterol HFA 1 puff every 6 hours as needed Albuterol nebs three times daily as needed History: Follows with [facility] pulmonology. Last visit 08/11/24. Patient on supplemental O2 at baseline. Reports using SHEY 2-3 times / week for symptoms of SOB and wheezing. Patient reports adequate relief of symptoms with use of rescue inhaler. ACT score was 17 today. Patient reports nighttime awakenings due to asthma-related symptoms about 1-2 nights per week. Goals of Therapy: Per [employer] Asthma Guidelnes: Optimize therapy to achieve symptom control (defined as rescue inhaler use < 2x per week). Prevent hospitalization secondary to exacerbation Plan: Continue current regimen as directed. Continue to follow up with [facility] pulmonology as directed. Education: Reviewed the difference between maintenance and rescue medications. Counseled patient on the importance of using maintenance inhaler as prescribed to improve symptom control, reduce the risk of exacerbation, & minimize the need for SHEY. Patient confirmed understanding. Diabetes Pharmacologic Therapy: Januvia 25 mg oral once daily History: Patient reports having SMBG materials at home, however denies routinely monitoring BG or maintaining SMBG log. Patient denies experiencing related symptoms of hypoglycemia or hyperglycemia. Patient reported that they have blurry vision, however further states that this is normal/baseline for them as they report having eye problems Lab monitoring: Lab Results Component Value Date K 4.0 01/07/2024 NA 147 (H) 01/07/2024 MICROALBCREU 48.3 (H) 01/07/2024 CREATININE 1.86 (H) 01/07/2024 EGFR 26 01/07/2024 HGBA1C 6.9 (A) 09/14/2024 HGBA1C 5.8 08/05/2023 HGBA1C 5.8 12/04/2022 Additional recommendations per ADA: On ACEI/ARB: No On Aspirin: No (listed allergy, unspecified) On Statin: Yes, atorvastatin 40 mg Dental exam in the past 6 months: No Eye Exam in the past 12 months: No Goals of therapy: Per the ADA Standards of Medical Care in Diabetes - 2023 Achieve A1c of <8% while also minimizing episodes of hypoBG (<70 mg/dL) Age >65yr with HF, CKD, HTN, dementia/cognitive impairment, incontinence Plan: Pharmacist to place referral for dental services and eye care, per standing order, for further routine monitoring. Patient encouraged to SMBG >1x daily and maintain SMBG log, for further evaluation of glycemic control. Patient reported understanding. Education: Discussed role of A1c monitoring, A1c and SMBG goals Reviewed risks of macrovascular and microvascular complications of uncontrolled T2DM Reviewed signs, symptoms and treatments of hypoglycemia to which patient confirmed understanding. Immunizations History: Immunization History Administered Date(s) Administered Influenza High-dose Quadrivalent Preservative Free 06/10/2021, 06/25/2022, 08/05/2023 Influenza Quadrivalent Adjuvanted 07/13/2020 Influenza, High Dose Seasonal, Preservative Free 07/12/2019, 09/14/2024 Influenza, IIV3, injectable 07/12/2019, 07/13/2020, 06/10/2021, 06/25/2022, 08/05/2023 Moderna Covid-19 Vaccine 12+ 01/09/2021, 02/07/2021, 09/30/2021, 02/10/2022 Pfizer Covid-19 Vaccine 12+ 08/05/2023, 09/14/2024 Pfizer Covid-19 Vaccine 12+ Bivalent 06/25/2022 Pneumococcal Conjugate PCV 20 01/02/2023, 01/02/2023 Pneumococcal Polysaccharide PPSV23 07/12/2019 Tdap 07/31/2020 Zoster, Recombinant 07/13/2020, 09/13/2020 Goals of therapy: Ensure patient is up to date per the CDC Adult Immunization Schedule. Assessment/Plan: Influenza [id number] vaccine: Up-to-date . Next dose due annually. COVID-19 [id number] vaccine: Up-to-date . Next dose due annually. Hepatitis B series (Age 60+ with risk factors): Due Pneumococcal vaccines (Age >65): Up-to-date Shingrix series (age > 50 ): Up-to-date . RSV vaccine (Age 75+): Due Td/TDaP (within the past 10 years): Up-to-date . Next dose due every 10 years. Plan: Patient interested in receiving RSV vaccine at this time. Patient scheduled for vaccine appointment at [facility] pharmacy for 10/25/24. Education: Indication of all recommended/administered vaccines Patient Action Plan Reviewed today with plan to revisit at follow up in 2 months for SMBP and SMBG review: 12/15/24 Continue to adhere to medication with assistance of medbox program Monitor blood pressure and blood glucose as directed and log results Attend vaccine appointment at [facility] pharmacy on 10/25/24 Attend follow up appointments with PCP, nephrology, cardiology, pulmonology, and MTM as indicated documented in this encounter Plan of Treatment Upcoming Encounters Date Type Department Care Team (Late st Contact Info) Description 12/15/2024 11:[address] [facility] [address] [place], [place] [id number] Scheduled Referrals Name Type Priority Associated Diagnoses Orde r Schedule Referral to [facility] Dental Adult Outpatient Referral Routine Type 2 diabetes mellitus with stage 3 chronic kidney disease, without long-term current use of insulin, unspecified whether stage 3a or 3b CKD (CMS/HCC) Expected: 10/20/2024 (Approximate), Expires: 10/20/[address] [facility] Eye Care Outpatient Referral Routine Type 2 diabetes mellitus with stage 3 chronic kidney disease, without long-term current use of insulin, unspecified whether stage 3a or 3b CKD (CMS/HCC) Expected: 10/20/2024 (Approximate), Expires: 10/20/2025 documented as of this encounter Visit Diagnoses Diagnosis Type 2 diabetes mellitus with stage 3 chronic kidney disease, without long-term current use of insulin, unspecified whether stage 3a or 3b CKD (CMS/HCC)- Primary Stage 3b chronic kidney disease (CMS/HCC) Restrictive lung disease Other diseases of lung, not elsewhere classified Pulmonary emphysema, unspecified emphysema type (CMS/HCC) Moderate persistent asthma with exacerbation Unspecified asthma, with exacerbation Chronic diastolic heart failure (CMS/[facility]) Chronic diastolic heart failure documented in this encounter Care Teams Wrapper Hand Relationship Specialty Start Date End Date Suzanna Dao MD [address] [place] [id number] PCP - General Family Medicine 07/21/19 documented as of this encounter
== END 2024-11-11 14:40 | disposition home or self-care (01) ==
PROVIDERS: PCP Internal Medicine; Visit Provider Hospitalist
DX: J98.4 Other disorders of lung (principal); J98.6 Disorders of diaphragm; R91.8 Other nonspecific abnormal finding of lung field; J44.9 Chronic obstructive pulmonary disease, unspecified; F51.01 Primary insomnia; R51.9 Headache, unspecified
CPT/HCPCS: 99214; G2211

== ENCOUNTER → 2024-11-11 14:02 | Outpatient (BNVA) | payer OTHER, SELFPAY | PROVIDERS: PCP Internal Medicine; Visit Provider Hospitalist | DX: J44.9 Chronic obstructive pulmonary disease, unspecified (principal); J98.4 Other disorders of lung; J98.6 Disorders of diaphragm; R91.8 Other nonspecific abnormal finding of lung field; F51.01 Primary insomnia; R51.9 Headache, unspecified; Z99.81 Dependence on supplemental oxygen | CPT/HCPCS: 99212 ==

== ENCOUNTER 2025-05-12 13:54 | Outpatient (AMB) | payer OTHER, SELFPAY ==
--- OUTSIDE RECORDS SUMMARY | 2025-05-09 11:15 | XMS_ITS | Encounter Summary ---
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, high risk, bilateral Mary Grace Suarez, OD [address] [place] [address] Phone: tel: fax: Violetta Dozier MD [address] [place] [id number] Phone: tel:[phone] fax: Referral ID Status Reason Start Date Expiration Date V isits Requested Visits Authorized [id number] Closed Specialty Services Required 05/09/2025 05/09/2026 1 1 Reason for Visit * Reason Comments Diabetic Eye Exam Encounter Details Date Type Department Care Team (Latest Contact Info) Description 05/09/2025 11:15 AM EDT Office Visit [facility] [address] [place] [address] Mary Grace Suarez, OD [address] [place] [address] Type 2 diabetes mellitus without ophthalmic manifestations (CMS/HCC) (Primary Dx); Combined forms of age-related cataract of both eyes; Open angle with borderline findings, high risk, bilateral; Presbyopia Social History Tobacco Use Types Packs/Day Years [...] as of this encounter Progress Notes * Mary Grace Suarez, OD - 05/09/2025 11:15 AM EDT Eye Care Progress Note Patient ID: Aminata Delgadillo is a 74 y.o. female. Chief Complaint Diabetic Eye Exam HPI Patient presents for T2DM exam. Patient's last A1c was 6.9% on 09/14/24. Patient's daughter typicallychecks BSL at home but did not check today. Patient reports blurry vision at near both eyes (OU). Patient has reading glasses but they do not help much SHAUNNA: 1 year ago Last edited by Mary Grace Suarez, OD on 05/09/2025 2:51 PM. Current Medications[1] Medical History[2] Surgical History[3] Family History[4] Tobacco Use: Low Risk (05/09/2025) Tobacco Smoking Tobacco Use: Never Smokeless Tobacco Use: Never Passive Exposure: Not on file Allergies[5] ROS Positive for: Endocrine, Eyes Negative for: Constitutional, Gastrointestinal, Neurological, Skin, Genitourinary, Musculoskeletal,HENT, Cardiovascular, Respiratory, Psychiatric, Allergic/Imm, Heme/Lymph Last edited by MaryG race Suarez, OD on 05/09/2025 12:13 PM. Base Eye Exam Visual Acuity (Snellen - Linear) Right Left Dist sc 20/50-2 20/50+2 Tonometry ([facility] , 11:19 AM) Right Left Pressure 14 12 Pupils Pupils APD Right PERRL None Left PERRL None Visual Brooks (Counting fingers) Left Right Full Full Unreliable responses, grossly full to finger motion OD/OS Extraocular Movement Right Left Full Full Neuro/Psych Oriented x3: Yes Mood/Affect: Normal Dilation Both eyes: 1.0% tropicamide @ 12:11 PM Slit Lamp and Fundus Exam External Exam Right Left External Normal Normal Slit Lamp Exam Right Left Lids/Lashes Dermatochalasis UL Dermatochalasis UL Conjunctiva/Sclera White and quiet White and quiet Cornea Clear Clear Anterior Chamber Deep and quiet, angles open Deep and quiet, angles open Iris Round and reactive, (-) NVI Round and reactive, (-) NVI Lens Gr 3+ NS, gr 1+ ACC Gr 3+ NS, gr 1+ ACC Fundus Exam Right Left Vitreous Clear Clear Disc Thin rim tissue superior temporal, (-) NVD [place] and healthy, (-) NVD C/D Ratio Vertical 0.75 0.70 C/D Ratio Horizontal 0.65 0.60 Macula Flat with even pigmentation, (-) DME Flat with even pigmentation, (-) DME Vessels Normal course and caliber, (-) NVE Normal course and caliber, (-) NVE Periphery No holes/tears/detachments 360 No holes/tears/detachments 360 Refraction Manifest Refraction (Subjective) Sphere Cylinder [place] Dist VA Add Right -0.50 -1.00 090 20/40 +2.50 Left -0.25 -0.50 090 20/30 +2.50 Near VA Both: 20/30 Assessment and Plan Diagnoses and all orders for this visit: Type 2 diabetes mellitus without ophthalmic manifestations (CMS/HCC) - No diabetic retinopathy or diabetic macular edema both eyes (OU) - Discussed importance of tight blood glucose control, medication compliance and regular follow up with PCP. Today's exam notes will be made available for PCP to review. Combined forms of age-related cataract of both eyes - Visually significant (BCVA OD 20/40, OS 20/30) - Discussed options of cataract surgery eval vs continuing to monitor. Patient and patient's familywish to pursue surgery - Referral placed to Dr. Dozier at [facility] Open angle with borderline findings, high risk, bilateral - Glaucoma risk profile/summary - POAG suspect due to: suspicious optic nerve cupping OU - Fhx glaucoma: (+) aunt - IOP today: 20/08 - baseline - Referral placed to Dr. Dozier at [facility] for glaucoma eval and possible MIGS if indicated Presbyopia - Did not dispense spec Rx at this time due to cataract surgery referral RTC with [facility] in 1 year for comprehensive eye exam or soon as needed Mary Grace Suarez, OD 05/09/2025, 2:55 PM Rectifying Attendant Source: __ None __ Bilingual Staff __ Qualified Staff Teacher Selection Specialist __ Telephone Rectifying Attendant; ID# _[id number]_ Rectifying Attendant brought by patient (family member, friend, AUTOMOTIVE GLASS INSTALLER, etc) __ In person trading floor operator __ Ipad Rectifying Attendant; ID#: Language Spoken During Exam: Kazakh [1] Current Outpatient Medications Medication Sig Dispense Refill acetaminophen (Tylenol 8 Hour) 650 MG ER tablet TAKE 1 TABLET BY MOUTH EVERY 8 HOURS NEEDED FOR MILD PAIN DO NOT BREAK, CRUSH, DISSOLVE OR CHEW 90 tablet 1 albuterol (2.5 MG/3ML) 0.083% nebulizer solution inhale 3 milliliter by nebulization route 3 times every day prn SOB/asthma albuterol 108 (90 Base) MCG/ACT inhaler INHALE 1 PUFF BY MOUTH EVERY 6 HOURS NEEDED SHORTNESS OFBREATH OR FOR WHEEZING amLODIPine (Norvasc) 10 MG tablet TAKE 1 TABLET BY MOUTH AT BEDTIME 90 tablet 3 atorvastatin (Lipitor) 40 MG tablet TAKE 1 TABLET BY MOUTH AT BEDTIME 90 tablet 3 budesonide-formoterol (Symbicort) 160-4.5 MCG/ACT inhaler Inhale 2 puffs every 12 (twelve) hours. carvedilol (Coreg) 25 MG tablet Take 25 mg by mouth 2 times daily. D3-1000 25 MCG (1000 UT) capsule TAKE 1 CAPSULE BY MOUTH EVERY MORNING 90 capsule 3 famotidine (Pepcid) 20 MG tablet Take 1 tablet by mouth in the morning. fluticasone (Flonase) 50 MCG/ACT nasal spray Administer 2 sprays into each nostril Once per day. gabapentin (Neurontin) 400 MG capsule Take 1 capsule by mouth at bedtime. hydrALAZINE (Apresoline) 100 MG tablet Take 1 tablet by mouth 3 times daily. Januvia 25 MG tablet TAKE 1 TABLET BY MOUTH EVERY MORNING 90 tablet 3 Lancets (BuildersCloudTouch Delica Plus [id number]) mis Apply 1 each topically 2 times daily. 100 each 11 loratadine (Claritin) 10 MG tablet Take 1 tablet by mouth Once per day. memantine (Namenda) 5 MG tablet TAKE 1 TABLET BY MOUTH EVERY MORNING 30 tablet 11 mirtazapine (Remeron) 15 MG tablet Take 15 mg by mouth if needed at bedtime. montelukast (Singulair) 10 MG tablet TAKE 1 TABLET BY MOUTH AT BEDTIME 90 tablet 3 nitroglycerin (Nitrostat) 0.[address] 1 tablet under the tongue. OLANZapine (ZyPREXA) 5 MG tablet Take 0.5 tablets by mouth 2 times daily. For hallucinations BuildersCloudTouch Ultra test strip TEST BLOOD SUGAR TWICE DAILY 100 strip 11 pentoxifylline (Trental) 400 MG ER tablet Take 1 tablet (400 mg) by mouth 2 times daily. 60 tablet 11 polyvinyl alcohol (Liquifilm Tears) 1.4 % ophthalmic solution PLACE 1 DROP INTO THE AFFECTED EYE(S)THREE TIMES DAILY NEEDED FOR DRYNESS OR IRRITATION 15 mL 11 propranolol (Inderal) 10 MG tablet Take 1 tablet by mouth 2 times daily. sertraline (Zoloft) 100 MG tablet Take 2 tablets by mouth 1 (one) time each day. torsemide (Demadex) 20 MG tablet TAKE 2 TABLETS BY MOUTH ONCE DAILY No current facility-administered medications for this visit. [2] Past Medical History: Diagnosis Date Cervical ca ([facility]/HCC) 04/21/1984 Unknown stage/ sp SAMINA BSOO Chronic renal failure, stage 2 (mild) 10/22/2022 Malignant neoplasm of cervix ([facility]/HCC) 04/20/2023 Pneumonia due to COVID-19 virus 10/22/2022 [3] History reviewed. No pertinent surgical history. 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, high risk, bilateral Expected: 05/09/2025 (Approximate), Expires: 05/09/2026 documented as of this encounter Visit Diagnoses Diagnosis Type 2 diabetes mellitus without ophthalmic manifestations ([facility])- Primary 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
[2025-05-12 13:57] VITALS: BP 126/66; PULSE 66; O2SAT 92; BMI 33.1
--- NOTE | 2025-05-12 13:57 | MHC.OFFVIS ---
Vital Signs 05/12/25 13:57 Height 5 ft 2 in Weight 180 lb 12.465 oz BMI 33.1 BP 126/66 Blood Pressure Location Lt brachial Position Sitting Pulse 66 Pulse Source Pulse Oximeter Pulse Oximetry (%) 92 Oxygen Delivery Method Nasal Cannula Oxygen Flow Rate 2 Intake Visit Reasons: COPD Allergies ampicillin Allergy (Severe, Verified 05/12/25 14:01) Rash and Hives aspirin Allergy (Severe, Verified 05/12/25 14:01) Rash and Hives clopidogrel (Plavix) Allergy (Severe, Verified 05/12/25 14:01) Rash and Hives PCN Allergy (Severe, Uncoded 11/11/24 14:15) Rash and Hives HPI Comments Details: The patient is a 74-year-old woman with a known history of asthma in addition to hypertension. Apparently she has been getting dizziness and headaches. [facility] ED for [facility] evaluation. There was back in August 2018. When she was there she was found to be hypoxic down to 81%. She was placed on oxygen. She is getting her oxygen through [facility]. She has been using the oxygen 24-7. She has been getting some dryness of her nose. We did review her x-ray that she had there with significantly elevated right hemidiaphragm. She is not aware of any injuries or surgeries to her thoracic area. She denies any falls or trauma to the right side. She denies choking or any difficulty with cough. The patient also had an echocardiogram which she was noted to have some trivial valvular disease in addition to hypertrophic left ventricle with diastolic dysfunction. She does have lower extremity edema. The patient did have pulmonary function studies recently demonstrating no obstruction in on a severe diffusion impairment. However, she was unable to perform lung volumes. She also underwent a sleep study demonstrating she has periodic limb movement and evidence of hypoxia but no evidence of any sleep apnea.The CT scan of the chest demonstrated a significantly elevated right hemidiaphragm suggesting either a paralyzed diaphragm or severed phrenic nerve. We did talk about potentially performing a sniff test in the near future once the COVID-19 virus resolved. In the meantime the patient is to continue taking walks and work on deep breathing exercises. She also has a thyroid nodule that was calcified in addition to other calcified nodular densities in other organs. She will follow-up with her primary care doctor. We did review again her sleep study and she is not qualify for CPAP therapy which is also good. However, she does have periodic leg movement and does need oxygen supplementation. 12/17/2020 the patient is here for pulmonary follow-up visit. Overall the patient has been doing better. She continues to use the oxygen on 2 L continuous 24 hours today. We had requested a conserving device draw 0 in order to get her a turbine technician turned toward last also longer. However after many months she has not heard anything from the [employer]. A good result to the incomplete myself and they will make arrangements soon in order to test her for the pulsed valve. The patient continues with recurrent respiratory therapy which appears to be effective for. She has not required any prednisone or antibiotics. She did recover from COVID-19. She is hopefully getting the vaccine sometime in January once she completes 3 months from her initial illness. 11/10/2022 the patient is here for a pulmonary follow-up visit. The patient overall has been feeling better. She is using the oxygen with good response. She did not qualify for the POC because she really does not need the house that much. Still, she is getting benefit from the oxygen supplementation. I did request that she can take off her oxygen at rest and check her oxygen numbers. If they are above 92% she can take a break from the oxygen supplementation. She we did review her last chest x-ray that she had back in June 2023 after a fall demonstrating persistent elevation of the right hemidiaphragm significantly. This chest x-ray continues to be abnormal. The question is that she has any airway obstructions therefore the only way of finding out is to do a CT scan to assess the abnormal chest x-ray. Will follow-up with a CT scan at this time. She continues use respiratory meds with good effect. 12/07/2023 the patient is here for a pulmonary follow-up visit. The patient has been doing well from a respiratory status. Has been using her inhalers as prescribed. She is getting worsening memory cognitive impairment. She does take medications for it. The family is concerned for underlying dementia. She will follow-up with her primary care doctor soon to make sure that her medications can be further optimized in view of the cognitive decline. From a respiratory status she is doing better with her sleep. Now she is on gabapentin and trazodone. The combination seems to be very effective for her. She is using the oxygen at 2 L with activity and with sleep/ At this time the patient does benefit the oxygen and she does require it. No recent imaging studies at this time. Her last CT scan was back 2022 demonstrating the atelectasis and pulmonary nodules. No additional imaging studies are warranted specially since she is doing well. If the patient is to develop worsening respiratory symptoms we can re-evaluate the need for further imaging studies then. 08/11/2024 the patient is here for a pulmonary follow-up visit. The patient has multiple complaints. Her daughter though tells me that she is having issues with dementia and forgetfulness. She does complaint of a headache. This happened after having COVID. It affects mainly the sinuses area. She is not taking any allergy medicine her nasal sprays and I do think that she could at least give it a trial for a month and see if she gets any relief from any kind of sinus inflammation and tenderness. In addition to that she does complaint of right-sided chest discomfort. She does have an elevated right hemidiaphragm with minimal expansion of the right lung. Likely getting obstructed at times and resulting in the some discomfort. Initially we talked about some antibiotics with the patient right now is doing okay. If she were to worsen she can always call and I consider a course of doxycycline. For now the patient will work on deep breathing exercises I gave her an incentive spirometer that she can work with. The patient is also continue to use the oxygen. The oxygen therapy has been affecting beneficial. She will continue to use it regularly. She can take breaks when she is resting as long as the oxygens above 90%. Her last CT scan of the chest was back in 2022 demonstrating pulmonary nodules. Also the elevated hemidiaphragm on the right side with significant atelectasis. In view of her worsening and persistent symptoms will go ahead and request a repeat CT scan at this time. 11/11/2024 the patient is here for a pulmonary follow-up visit. Overall she is doing okay. She does complaint of worsening cough some chest congestion. Blny-[id number]-afklzfcn severity. She feels as because she ran out of her medications several weeks ago. I will go ahead and send all the medications the pharmacy. She will monitor closely her symptoms that they do not get better she will call me so I can further adjust her therapy. In the meantime she did undergo a CT scan of the chest which I personally reviewed demonstrating the chronic elevation of the diaphragm on the right side in addition to the atelectasis. That looks about the same. This is a chronic issue. Pulmonary nodules appear to be stable. At this point will continue with the current respiratory therapy continue with the oxygen supplementation and will follow-up in the fall 2024. She has any issues prior to that she will call for an earlier assessment. 05/12/2025 the patient is here for pulmonary follow-up visit. The patient overall has been doing well. She continues use the oxygen with good effect. We did talk about the importance of deep breathing exercises specially with the elevated diaphragm. She continues use her respiratory inhalers as prescribed. She does live with her significant other. She has a hard time performing any activities of daily living. She needs help with all her activities. She is very limited at this time with help from her daughter who has issues with the back. At this point the need to talk about different resources to provide her safety at home. She may need a positional bed and also assistance to be able to bathe. The patient will continue her respiratory therapy will continue using her oxygen. We did look at her last CT scan back from September which demonstrated the significant atelectatic lung but otherwise no acute disease. She is going to work on deep breathing exercises at this time. I did provide her an incentive spirometer. [facility] Medical History (Updated 08/11/24 @ 14:05 by Rip Louie MD) Pulmonary nodules Abnormal chest x-ray Thyroid nodule Frequent headaches Insomnia Asthma-COPD overlap syndrome Abnormality of lung on CXR Elevated diaphragm Pleural effusion Asthma Restrictive lung disease Surgical History History of surgery History of carpal tunnel surgery History of hysterectomy History of inguinal hernia repair Family History Mother No problems noted. Father No problems noted. Social History Alcohol intake: never Patient Tobacco Use Status: Never used Tobacco Review of Systems Const Reports difficulty sleeping, Reports fatigue, Reports headache(s) and Denies night sweats ENT Denies change in voice, Reports vertigo, Reports dizziness, Reports headache(s), Denies lip swelling, Denies mouth pain and Denies tongue swelling Card Denies chest pain and Reports dyspnea on exertion Resp Reports chest congestion, Reports cough and Reports dyspnea on exertion GI Denies abdominal pain Musc Denies no additional complaints Neuro Denies confusion, Reports vertigo, Reports dizziness, Reports headache(s) and Reports memory loss Psych Denies no additional complaints, Denies confusion and Reports memory loss Endo Reports fatigue Lee/Lymph Denies easy bleeding and Denies lymphadenopathy Aller/Immun Denies lip swelling and Denies tongue swelling Physical Exam Vital Signs: Last Vital Signs Pulse 66 05/12/25 13:57 BP 126/66 05/12/25 13:57 Pulse Ox 92 05/12/25 13:57 Oxygen Delivery Method Nasal Cannula 05/12/25 13:57 Oxygen Flow Rate 2 05/12/25 13:57 BMI result Body Mass Index 33.1 Const General: No confusion Orientation/consciousness: No confusion Neck Neck: Yes normal visual inspection, Yes full ROM and Yes no lymphadenopathy Chest Chest palpation & inspection: normal inspection of the chest Resp Auscultation: no crackles, no rales, no rhonchi, no wheezes and diminished lung sounds Cardio Rate: regular rate Rhythm: regular rhythm Heart sounds: S1 normal heart sound present and S2 normal heart sound present GI Palpation (GI): Soft to palpation and nontender Auscultation: normal bowel sounds Skin General skin exam: rashes and/or lesions noted Neuro General: No confusion Assessment & Plan Assessment & Plan (1) Restrictive lung disease: Code(s): J98.4 - Other disorders of lung Category: Medical (2) Elevated diaphragm: Code(s): J98.6 - Disorders of diaphragm Category: Medical (3) Abnormality of lung on CXR: Code(s): R91.8 - Other nonspecific abnormal finding of lung field Category: Medical (4) Asthma-COPD overlap syndrome: Code(s): J44.9 - Chronic obstructive pulmonary disease, unspecified Category: Medical (5) Insomnia: Code(s): G47.00 - Insomnia, unspecified Category: Medical Qualifiers: Insomnia type: primary Qualified Code(s): F51.01 - Primary insomnia (6) Pulmonary nodules: Code(s): R91.8 - Other nonspecific abnormal finding of lung field Category: Medical (7) Frequent headaches: Code(s): R51.9 - Headache, unspecified Category: Medical Plan Continue Symbicort BID oxygen 2 Liters/pulse with activity and 2L with sleep SHEY as needed continue gabapentin 400 mg p.o. q.h.s. Claritin Fluticasone nasal spray Needs help will all ADLS. Would benefit from a positional bed and additional assistance. Follow up 6-8 months Coding Level of Care Code Est Pt Level 4 (52700) Complex EM visit Add On G2211 Diagnoses Restrictive lung disease J98.4 Elevated diaphragm J98.6 Abnormality of lung on CXR R91.8 Asthma-COPD overlap syndrome J44.9 Primary insomnia F51.01 Insomnia type: primary Pulmonary nodules R91.8 Frequent headaches R51.9 Time Spent (min) 17
--- OUTSIDE RECORDS SUMMARY | 2025-05-12 14:22 | XMS_ITS | Clinical Summary ---
Author Organization [employer] Address [address] [place] [address] 7 [place] [address] Care Team Providers Care Brim Welt Sewing Machine Operator Name Role Phone Suzanna Dao MD Primary Care Provider + Allergies Active Allergy Reactions Criticality Noted Date Comments Aspirin 12/30/2019 Clopidogrel 12/30/2019 Penicillin G 12/30/2019 Medications albuterol (2.5 MG/3ML) 0.083% nebulizer solution inhale 3 milliliter by nebulization route 3 times every day prn SOB/asthma 02/29/20 20 Active nitroglycerin (Nitrostat) 0.[address] 1 tablet under the tongue. 10/04/19 20 Active budesonide-form oterol (Symbicort) 160-4.5 MCG/ACT inhaler Inhale 2 puffs every 12 (twelve) hours. 11/16/19 21 Active carvedilol (Coreg) 25 MG tablet Take 25 mg by mouth 2 times daily. 11/20/19 23 Active hydrALAZINE (Apresoline) 100 MG tablet Take 1 tablet by mouth 3 times daily. 10/07/19 23 Active torsemide (Demadex) 20 MG tablet TAKE 2 TABLETS BY MOUTH ONCE DAILY 09/16/19 23 Active albuterol 108 (90 Base) MCG/ACT inhaler INHALE 1 PUFF BY MOUTH EVERY 6 HOURS NEEDED SHORTNESS OF BREATH OR FOR WHEEZING 09/01/20 23 Active famotidine (Pepcid) 20 MG tablet Take 1 tablet by mouth in the morning. 09/01/20 23 Active gabapentin (Neurontin) 400 MG capsule Take 1 capsule by mouth at bedtime. 09/01/20 Active sertraline (Zoloft) 100 MG tablet Take 2 tablets by mouth 1 (one) time each day. 09/01/20 Active polyvinyl alcohol (Liquifilm Tears) 1.4 % ophthalmic solution PLACE 1 DROP INTO THE AFFECTED EYE(S) THREE TIMES DAILY NEEDED FOR DRYNESS OR IRRITATION 15 mL 01/27/20 Active Lancets (OneTouch Delica Plus [id number]) mis Apply 1 each topically 2 times daily. 100 each 04/11/20 Active OneTouch Ultra test strip TEST BLOOD SUGAR TWICE DAILY 100 strip 04/11/20 Active fluticasone (Flonase) 50 MCG/ACT nasal spray Administer 2 sprays into each nostril Once per day. 08/11/20 Active loratadine (Claritin) 10 MG tablet Take 1 tablet by mouth Once per day. 08/11/20 Active mirtazapine (Remeron) 15 MG tablet Take 15 mg by mouth if needed at bedtime. 08/12/20 Active OLANZapine (ZyPREXA) 5 MG tablet Take 0.5 tablets by mouth 2 times daily. For hallucinations 08/12/20 Active propranolol (Inderal) 10 MG tablet Take 1 tablet by mouth 2 times daily. 08/18/20 Active acetaminophen (Tylenol 8 Hour) 650 MG ER tablet TAKE 1 TABLET BY MOUTH EVERY 8 HOURS NEEDED FOR MILD PAIN DO NOT BREAK, CRUSH, DISSOLVE OR CHEW 90 tablet 11/03/19 25 Active pentoxifylline (Trental) 400 MG ER tablet Take 1 tablet (400 mg) by mouth 2 times daily. 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) TAKE 1 TABLET BY MOUTH EVERY MORNING 30 tablet 03/29/20 25 Active Januvia 25 MG tablet TAKE 1 TABLET BY MOUTH EVERY MORNING 90 tablet 03/29/20 25 Active montelukast (Singulair) 10 MG tablet TAKE 1 TABLET BY MOUTH AT BEDTIME 90 tablet 03/29/20 25 Active atorvastatin (Lipitor) 40 MG tablet TAKE 1 TABLET BY MOUTH AT BEDTIME 90 tablet 03/29/20 25 Active D3-1000 25 MCG (1000 UT) capsule TAKE 1 CAPSULE BY MOUTH EVERY MORNING 90 capsule 3 03/29/20 25 Active amLODIPine (Norvasc) 10 MG tablet TAKE 1 TABLET BY MOUTH AT BEDTIME 90 tablet 3 03/29/20 25 Active Active Problems Problem Noted Date Diagnosed Date Pulmonary emphysema, unspecified emphysema type 01/07/2024 Assessment & Plan (09/14/2024 11:10 AM EST): Doing well with no recent exacerbations. Continue on O2 prn. Continue Albuterol + Symbicort. Assessment & Plan (01/07/2024 2:01 PM EDT): Followed by manager library, she is O2 dependent, continue at 3L [...] FU by [facility], Dr Prado Assessment & Plan (01/07/2024 2:01 PM EDT): 2/2 to DM and HTN Check GFR and fu w garment form assembler every yr () Assessment & Plan (08/05/2023 10:55 AM EST): GFR has remained stable Customer Relations Coordinator regarding control of DM and hypertension Incontinence [...] remained controlled Refer back to cardiology in [facility] with Dr. Abdul for the f/u Dependence [...] EST): Needs toenail trimming, refer to new Obiee Report Developer. Metabolic encephalopathy 10/22/2022 Moderate persistent asthma with exacerbation Assessment & Plan (12/04/2022 3:03 PM EDT): Continue Symbicort. FU closely with manager library Neck pain 10/22/2022 Neuropathy of left foot [...] EDT): Oxygen dependent Continue close fu with manager library No change in medications Rib pain 10/22/2022 [...] FU in 3 months. Referral to new machine maintenance. Reminded to schedule eye clinic appointment. 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); Combined forms of age-related cataract of both eyes; Open angle with borderline findings, high risk, bilateral; Presbyopia 05/09/2025 Travel 05/04/2025 Telephone [facility] [address] [place] [address] Suzanna Dao MD Durable Medical Equipment 05/04/2025 Patient Outreach [address] [address] Suzanna Dao MD Pre-visit Planning (SDOH screening completed on 09/08/2024) 04/27/[address] [phone] Suzanna Dao MD Durable Medical Equipment 04/20/2025 Telephone [facility] [address] [place], [place] [phone] Suzanna Dao MD Durable Medical Equipment (Multiple items) 03/27/2025 Refill [facility] [address] [place], [place] [phone] Suzanna Dao MD 03/27/2025 Refill [facility] [address] [place] [address] Niecy Nunez MD 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) 02/22/2025 Telephone [facility] [address] [place], [place] [phone] Suzanna Dao MD telephone call from Last 3 Months Immunizations Immunization Administration Dates Next Due Influenza High-dose Quadriva lent Preservative Free 08/05/2023,06/25/2022,06/10/2021 Influenza Quadrivalent Adjuvanted 07/13/2020 Influenza, High Dose Seasona l, Preservative Free 09/14/2024,07/12/2019,06/27/2019 Influenza, IIV3, injectable 08/05/2023,1 ,06/10/2021,07/13,07/12/2019 Pfizer Covid-19 Vaccine 12+ 09/14/2024, 3 Pfizer Covid-19 Vaccine 12+ Bivalent 06/25/2022 Pneumococcal Conjugate PCV 20 01/02/2023, 023 Pneumococcal Polysaccharide PPSV23 07/12/2019 RSV Bivalent 11/16/2024 Tdap 07/31/2020 Zoster, Recombinant 09/13/2020,07/13/2020 Family History Medical History Relation Name Comments Glaucoma Mother's Sister Relation Name Status Comments Mother's Sister Social History Tobacco Use Types Packs/Day Years [...] Sign Reading Time Taken Comments Blood Pressure 140/82 12/15/2024 10:02 AM EDT Pulse 69 12/15/2024 10:02 AM EDT Temperature 35.6 C (96 F) 09/14/2024 10:09 AM EST Respiratory Rate 24 [...] Description 05/15/2025 10:30 AM EDT Office Visit [facility] [address] [place] [phone] Suzanna Doa MD [address] [place] [address] Health Maintenance Due Date Last Done Comments Alcohol/Substance Use Screening 1962 Hepatitis C Screening 1966 Lipid Panel 04/02/2022 04/02/2021, 09/06/2020 Depression Screening 12/05/2023 12/04/2022, 12/05/19 23 Diabetes: Hemoglobin A1C 03/14/2025 025, 08/05/2023, 12/04/2022, Additional history exists COVID-19 Vaccine ( season) 2025 09/14/2024, 08/05/2023, 06/25/2022, Additional history exists Influenza Vaccine (#1) 2025 , 08/05/2023, 08/05/2023, Additional history exists SDOH Screening 09/08/2025 09/08/2024 Diabetes: Foot Exam 09/14/2025 09/14/2024, 09/14/2024, 09/14/2024, Additional history exists Tobacco Screening 05/09/2026 05/09/2025 Eye Exam 05/09/2027 05/09/2025, 10/2024, 05/09/2025, Additional history exists DTaP/Tdap/Td Vaccines (2 - Td or Tdap) 07/31/2030 07/31/2020 Zoster Vaccines Completed 09/13/2020, 07/13/2020 Pneumococcal Vaccine: 50+ Years Completed 01/02/2023, 01/02/2023, 07/12/2019 RSV Patients and Patients Aged 60 years or older Completed 11/16/2024 HIB Vaccines Aged Out No longer eligi [...] age to complete this topic Meningococcal B Vaccine Aged Out No l onger eligible based on patient's age to complete [...] unspecified whether stage 3a or 3b CKD ([facility]) LIPID PANEL, STANDARD Routine 04/02/2021 2:36 PM EDT from Last 3 Months or Most Recently Relevant to Health Maintenance Results * (ABNORMAL) POCT HGB A1C (09/14/2024 10:31 AM EST) Hemoglobin A1C 6.9(A) 4.0 - 6.0 % QC Media Lot # [id number] Lot# Expiration Date 869 Blood 09/14/2024 10:3 1 AM EST Suzanna Dao MD POINT OF CARE TEST ENTER /EDIT ORDERABLES Final Result * (ABNORMAL) LIPID PANEL, STANDARD (04/02/2021 2:36 PM EDT) Chol/HDLC Ratio 3.2 <5.0 (calc) [facility] Cholesterol, Total 146 <200 mg/dL [facility] HDL Cholesterol 46(L) > OR = 50 mg/dL [facility] LDL Cholesterol 79 mg/dL (calc) [facility] Comment: Reference range: <100 Desirable range <100 mg/dL for primary prevention; <70 mg/dL for patients with CHD or diabetic patients with > or = 2 CHD risk factors. LDL-C is now calculated using the Robbin calculation, which is a validated novel method providing better accuracy than the Friedewald equation in the estimation of LDL-C. Dontae REDD et al. LLOYD. 2013;310(04): 1734-6063 (http://education.QuestDiagnostics.Zadspace/faq/SPZ707) Non-HDL Cholesterol 100 <130 mg/dL (calc) [facility] Comment: For patients with diabetes plus 1 major ASCVD risk factor, treating to a non-HDL-C goal of <100 mg/dL (LDL-C of <70 mg/dL) is considered a therapeutic option. Triglycerides 116 <150 mg/dL [facility] 04/02/2021 2:36 PM EDT us Suzanna Dao MD LAB BLOOD ORDERABLES Fin al Result [facility] [address] from Last 3 Months or Most Recently Relevant to Health Maintenance [place] [address] [place] [address] STANDARD Member Subscriber Plan / Payer (Ef fective 2022-Present) Name:Aminata Shaver Relation to Subscriber:Self Name:Aminata Shaver Payer ID:Not on file Group ID:Not on file Type:Medicaid Address: [facility] [id number] [place] [id number] [address] Advance Directives Documents on File Type Date Recorded Patient Golf Course Patroller Expl anation Advance Directives and Living Will 11/11/2024 3:19 PM Health Care Proxy Care Teams Brim Welt Sewing Machine Operator Relationship Specialty Start Date End Date Suzanna Dao MD [address] [place] [phone] PCP - General Family Medicine 07/21/19
--- OUTSIDE RECORDS SUMMARY | 2025-05-12 14:22 | XMS_ITS | Encounter Summary ---
Author Organization [employer] Address [address] [facility] 7 [place] [address] Care Team Providers Care Digestion Operator Name Role Phone Suzanna Dao MD Primary Care Provider + Reason for Visit * Reason Onset Date Comments FYI 10/01/2023 Encounter Details Date Type Department Care Team ([facility] st Contact Info) Description 10/01/2023 Telephone [facility] [address] [place], [place] [phone] Suzanna Dao MD [address] [place], [place] [phone] FYI Social History Tobacco Use Types Packs/Day [...] - 10/01/2023 1:44 PM EST Tc from Eduardo with [facility] informing that pt was not able to be admitted today 10/01/2023 but hespoke with pt daughter Suzanna and are able to admit her tomorrow 10/02/2023 . documented in this encounter Plan of Treatment Upcoming Encounters Date Type Department Care Team (Late st Contact Info) Description 05/15/2025 10:30 AM EDT Office Visit [facility] [address] [place] [address] Suzanna Dao MD [address] [place] [address] documented as of this encounter Visit Diagnoses Not on filedocumented in this encounter Care Teams Digestion Operator Relationship Specialty Start Date End Date Suzanna Dao MD [address] [place] [address] PCP - General Family Medicine 07/21/19 documented as of this encounter
--- OUTSIDE RECORDS SUMMARY | 2025-05-12 14:22 | XMS_ITS | Encounter Summary ---
Author Organization [employer] Address [address] [facility] 7 [place] [address] Care Team Providers Care Keno Terminal Operator Name Role Phone Suzanna Dao MD Primary Care Provider + Reason for Visit * Reason Comments Med Refill Encounter Details Date Type Department Care Team ([facility] st Contact Info) Description 04/11/2024 Refill [facility] [address] [place], [place] [phone] Suzanna Dao MD [address] [place] [address] Social History Tobacco Use Types Packs/Day Years [...] Description 05/15/2025 10:30 AM EDT Office Visit [facility] [address] [place] [phone] Suzanna Dao MD [address] [place] [phone] documented as of this encounter Visit Diagnoses Not on filedocumented in this encounter Care Teams Keno Terminal Operator Relationship Specialty Start Date End Date Suzanna Dao MD [address] [place] [address] PCP - General Family Medicine 07/21/19 documented as of this encounter
--- OUTSIDE RECORDS SUMMARY | 2025-05-12 14:22 | XMS_ITS | Clinical Summary ---
Author Organization [facility] Address [address] [place] [address] Phone Care Team Providers Care Manager Auto Name Role Phone Suzanna Dao MD Primary Care Provider Allergies Active Allergy Reactions Criticality Noted Date Comments Aspirin 11/30/2024 Penicillins 11/30/2024 Clopidogrel 11/30/2024 Medications ammonium lactate (AmLactin) 12 % lotion Apply topically if needed for dry skin. 400 g 2 5 12/01/19 Active Social History Tobacco Use Types Packs/Day Years Used Date Smoking Tobacco: Never Assessed Comments Unknown Sex and Gender Information Value Date Recorded Sex Assigned at Not on file Legal Sex Female 7:05 AM EST Gender Identity Not on file Sexual Orientation Not on file Last Filed Vital Signs Vital Sign Reading Time Taken Comments Blood Pressure - - Pulse - - Temperature - - Respiratory Rate - - Oxygen Saturation - - Inhaled Oxygen Concentration - - Weight 85.7 kg (189 lb) 11/30/2024 1:55 PM EDT Height 160 cm (5' 3 ) 11/30/2024 1:55 PM EDT Body Mass Index 33.48 11/30/2024 1:55 PM EDT Plan of Treatment Upcoming Encounters Date Type Department Care Team (Late st Contact Info) Description 06/26/2025 1:15 PM EDT Office Visit [facility] [place] [address] [phone] Jose Cannon DPM [address] [address] Health Maintenance Due Date Last Done Comments Diabetes: Annual Foot Exam 1960 Diabetes: Annual Retina Eye Exam 1960 Depression Screening 09/07/2024 Diabetes: Annual Urine Albumin-Creatinine Ratio (uACR) 10/11/2024 Falls Risk Assessment 10/11/2024 Hepatitis C Screening 10/11/2024 Medicare Annual Wellness Visit 10/11/2024 Osteoporosis Screening (Bone Density Screening) 10/11/2024 Social Influencers of Health Screening 10/11/2024 Diabetes: Blood Sugar Control Test (HGBA1C) 03/14/2025 09/14/2024 COVID-19 Vaccine ( season) 2025 09/14/2024, 08/05/2023, 06/25/2022, Additional history exists Influenza Vaccine (#1) 2025 , 08/05/2023, 06/25/2022, Additional history exists Diabetes: Annual GFR (Glomerular Filtration Rate) 11/17/2025 11/17/2024, 11/17/2024, 05/19/2024 Hypertension/CHF/CAD Annual BMP Blood Test 11/17/2025 11/17/2024, 11/17/2024, 05/19/2024 Cholesterol Screening (Lipid Panel) 04/02/2026 04/02/2021 DTaP,Tdap,and Td Vaccines (2 - Td or Tdap) 07/31/2030 07/31/2020 Zoster Vaccines Completed 09/13/2020, 07/13/2020 Pneumococcal Vaccine: 50+ Years Completed 01/02/2023, 07/12/2019 RSV Immunization Adult Patients Completed 11/16/2024 HIB Vaccines Aged Out No [...] to complete this topic RSV Immunization Patients Under 20 months Aged Out No longer eligible based on patient's age to complete this topic Varicella Vaccines Aged Out No longer eligible based on patient's age to complete this topic Insurance MEDICAID - [place] [facility] [employer] Care Teams Manager Auto Relationship Specialty Start Date End Date Suzanna Dao MD [address] [place] [phone] PCP - General Internal Medicine 10/11/24
--- OUTSIDE RECORDS SUMMARY | 2025-05-12 14:22 | XMS_ITS | Encounter Summary ---
Author Organization [employer] Address [address] [facility] 7 [place] [address] Care Team Providers Care Insurance Loss Assessor Name Role Phone Suzanna Dao MD Primary Care Provider + Reason for Visit * Reason Onset Date Comments Med Refill 11/20/2023 Encounter Details Date Type Department Care Team ([facility] st Contact Info) Description 11/20/2023 Refill [facility] [address] [place], [place] [phone] Niecy Nunez MD [address] [place], [place] [phone] Social History Tobacco Use Types Packs/Day Years Used Date Smoking Tobacco: Never Smokeless Tobacco: Never Alcohol Use Standard Drinks/Week Comments Never 0 (1 standard drink = 0.6 oz pur e alcohol) Housing Stability Answer Date Recorded What is your housing situation today? I have edgard sing 06/30/[address] you li [...] Description 05/15/2025 10:30 AM EDT Office Visit [facility] [address] [place], [place] [phone] Suzanna Dao MD [address] [place] [phone] documented as of this encounter Visit Diagnoses Not on filedocumented in this encounter Care Teams Insurance Loss Assessor Relationship Specialty Start Date End Date Suzanna Dao MD [address] [place] [address] [phone] PCP - General Family Medicine 07/21/19 documented as of this encounter
--- OUTSIDE RECORDS SUMMARY | 2025-05-12 14:22 | XMS_ITS | Encounter Summary ---
Author Organization [facility] Address [address] [place] [address] Phone Care Team Providers Care Dicer Machine Operator Name Role Phone Suzanna Dao MD Primary Care Provider + [phone] Encounter Details Date Type Department Care Team (Late st Contact Info) Description 11/28/2020 Orders Only [facility] [address] [place] [phone] Provider, MD Mark Social History Tobacco Use Types Packs/Day Years [...] Department Care Team (Latest Contact Info) Description 05/24/2025 11:00 AM EDT Office Visit [facility] [address] [facility] [address] [place] [address] Grey Prado MD [address] [facility] [address] [place] [address] 05/26/2025 Orders Only [facility] [address] [phone] Grey Prado MD [address] [phone] Chronic kidney disease, stage 4 (severe) (HCC); Chronic diastolic heart failure (HCC); Other acute kidney failure (HCC); Hypernatremia; Hypertensive disorder; Hypertensive renal disease; 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); Small vessel cerebrovascular disease; Restrictive lung disease; Proteinuria, not otherwise specified; Vitamin D deficiency, not otherwise specified; Secondary hyperparathyroidism (HCC); Hypercalcemia documented as of this encounter Procedures Procedure Name Priority Date/Time Associated Diagnosis Comments EXT RESULT ENTRY Routine 11/28/2020 documented in this encounter Results * EXT RESULT ENTRY (11/28/2020) Historical Provider LAB BLOOD ORDERABLES Jocelyn l Result documented in this encounter Visit Diagnoses Not on filedocumented in this encounter Care Teams Dicer Machine Operator Relationship Specialty Start Date End Date Suzanna Dao MD [address] [place] [phone] PCP - General Internal Medicine 12/27/24 documented as of this encounter
--- OUTSIDE RECORDS SUMMARY | 2025-05-12 14:22 | XMS_ITS | Encounter Summary ---
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
--- OUTSIDE RECORDS SUMMARY | 2025-05-12 14:22 | XMS_ITS | Encounter Summary ---
Author Organization [employer] Address [address] [place] [address] [place] [address] Care Team Providers Care Project Facilitator Name Role Phone Suzanna Dao MD Primary Care Provider + Reason for Visit * Reason Onset Date Comments Med Refill 11/20/2023 Encounter Details Date Type Department Care Team ([facility] st Contact Info) Description 11/20/2023 Refill [facility] [address] [place], [place] [phone] Marysol Dior MD [address] [place] [address] Social History Tobacco Use Types Packs/Day Years [...] Description 05/15/2025 10:30 AM EDT Office Visit [facility] [address] [place] [phone] Suzanna Dao MD [address] [place] [phone] documented as of this encounter Visit Diagnoses Not on filedocumented in this encounter Care Teams Project Facilitator Relationship Specialty Start Date End Date Suzanna Dao MD [address] [place] [phone] PCP - General Family Medicine 07/21/19 documented as of this encounter
--- OUTSIDE RECORDS SUMMARY | 2025-05-12 14:23 | XMS_ITS | Encounter Summary ---
Author Organization [facility] Address [address] [place] [address] 7 [place] [address] Care Team Providers Care Product Test Engineer Name Role Phone Suzanna Dao MD Primary Care Provider + Encounter Details Date Type Department Care Team ([facility] Contact Info) Description 12/24/2022 Orders Only [facility] [address] [place], [place] [phone] Vickie Patel LPN Social History Tobacco Use [...] Upcoming Encounters Date Type Department Care Team ([facility] Contact Info) Description 05/15/2025 10:30 AM EDT Office Visit [facility] [address] [place] [address] Suzanna Dao MD [address] [place], [place] [phone] documented as of this encounter Visit Diagnoses Not on filedocumented in this encounter Care Teams Product Test Engineer Relationship Specialty Start Date End Date Suzanna Dao MD [address] [place] [phone] PCP - General Family Medicine 07/21/19 documented as of this encounter
--- OUTSIDE RECORDS SUMMARY | 2025-05-12 14:23 | XMS_ITS | Encounter Summary ---
Author Organization [employer] Address [address] [place] [address] 7 [place] [address] Care Team Providers Care Cisco Consultant Name Role Phone Suzanna Dao MD Primary Care Provider + Reason for Visit * Reason Onset Date Comments Chart Prep 05/12/2025 Encounter Details Date Type Department Care Team ([facility] st Contact Info) Description 05/12/2025 Telephone [facility] [address] [place], [place] [phone] Suzanna Dao MD [address] [place], [place] [phone] Chart Prep Social History Tobacco Use Types Packs/Day Years [...] encounter Miscellaneous Notes * Telephone Encounter - Thierno Snowden MA - 05/12/2025 10:25 AM EDT Chart Prep Labs: done Images: done Referrals: appointment pending 06/26/25 @1:15 pm Vaccines due: Covid and Flu Screenings: not applicable Overdue care gaps: A1c, Glucose, SBIRT, PHQ-9, and HANNA-7 documented in this encounter Plan of Treatment Upcoming Encounters Date Type Department Care Team (Late st Contact Info) Description 05/15/2025 10:30 AM EDT Office Visit [facility] [address] [place] [address] Suzanna Dao MD [address] [place] [address] documented as of this encounter Visit Diagnoses Not on filedocumented in this encounter Care Teams Cisco Consultant Relationship Specialty Start Date End Date Suzanna Dao MD [address] [place] [address] PCP - General Family Medicine 07/21/19 documented as of this encounter
--- OUTSIDE RECORDS SUMMARY | 2025-05-12 14:23 | XMS_ITS | Clinical Summary ---
Author Organization [facility] Address [address] [address] Phone Care Team Providers Care Wood Patternmaker Name Role Phone Suzanna Dao MD Primary Care Provider + [phone] Allergies Active Allergy Reactions Criticality Noted Date [...] by mouth 1 (one) time each day 11/15/2020 Active atorvastatin (LIPITOR) 40 MG tablet Take 1 tablet by mouth 1 (one) time each day Active Symbicort 160-4.5 MCG/ACT inhaler 11/15/2020 Active gabapentin (NEURONTIN) 100 MG capsule Take 1 capsule by mouth 1 (one) time each day Active memantine (NAMENDA) 5 MG tablet Take 1 tablet by mouth 1 (one) time each day 11/15/2020 Active montelukast (SINGULAIR) 10 MG tablet Take [...] route 2 (two) times a day Active mirtazapine (REMERON) 15 MG tablet Take 15 mg by mouth every night 05/10/2024 Active OLANZapine (ZyPREXA) 5 MG tablet Take 15 mg by mouth every night 05/10/2024 Active loratadine (CLARITIN) 10 MG tablet Take 10 mg by mouth Active propranolol (INDERAL) 10 MG tablet Take 1 tablet by mouth in the morning and 1 tablet at noon and 1 tablet in the evening. 08/18/2024 Active famotidine (PEPCID) 20 MG tablet Take 0.5 tablets (10 mg total) by mouth 1 (one) time each day 45 tablet 3 01/03/2025 Active torsemide (DEMADEX) 20 MG tabletIndicatio ns:Stage 3a chronic kidney disease (HCC) Take 2 tablets (40 mg total) by mouth 1 (one) time each day 180 tablet 3 01/03/2025 6 Active hydrALAZINE 100 MG tablet Take 1 tablet (100 mg total) by mouth in the morning and 1 tablet (100 mg total) in the evening and 1 tablet (100 mg total) before bedtime. 270 tablet 3 02/03/2025 Active carvedilol (COREG) 25 MG tablet Take 1 tablet (25 mg total) by mouth in the morning and 1 tablet (25 mg total) in the evening. 180 tablet 3 03/27/2025 Active Active Problems Problem Noted Date Diagnosed Date Proteinuria, not otherwise specified 11/22/2024 Vitamin D deficiency, not otherwise specified Secondary hyperparathyroidism 11/22/2024 Hypercalcemia 11/22/2024 Emphysema 01/07/2024 Overview (05/23/2024): Last Assessment & Plan: Followed by manager of finance, she is O2 dependent, continue at 3L [...] Acute nontraumatic kidney injury 11/28/2020 Chronic kidney disease, stage 4 (severe) 021 Hypertensive renal disease 11/28/2020 Hypertensive disorder 11/28/2020 Renal disorder due to type 2 diabetes mellitus 0 11/28/2020 Resolved Problems Problem Noted Date Diagnosed Date Resolved Date Acute nontraumatic kidney injury 11/28/2020 09/21/2023 Encounters Date Type Department Care Team Description 03/27/2025 Refill [facility] [address] [address] Kristopher Martinez from Last 3 Months Family History Medical [...] Sign Reading Time Taken Comments Blood Pressure 166/76 11/23/2024 10:16 AM EDT Pulse 66 11/23/2024 10:16 AM EDT Temperature - - Respiratory Rate - - Oxygen Saturation 93% 05/23/2024 9:45 AM EDT 2 liters Inhaled Oxygen Concentration - - Weight 83.6 kg (184 lb 6.4 oz) 11/23/2024 10:16 AM EDT Height 157.5 cm (5' 2 ) 11/23/2024 10:16 AM EDT Body Mass Index 33.73 11/23/2024 10:16 AM EDT Plan of Treatment Upcoming Encounters Date Type Department Care Team (Latest Contact Info) Description 05/24/2025 11:00 AM EDT Office Visit [facility] [address] [place] [address] Grey Prado MD [address] [address] 05/26/2025 Orders Only [facility] [address] [address] Grey Prado MD [address] [address] Chronic kidney disease, stage 4 (severe) (HCC); Chronic diastolic heart failure (HCC); Other acute kidney failure (HCC); Hypernatremia; Hypertensive disorder; Hypertensive renal disease; 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); Small vessel cerebrovascular disease; Restrictive lung disease; Proteinuria, not otherwise specified; Vitamin D deficiency, not otherwise specified; Secondary hyperparathyroidism (HCC); Hypercalcemia Health Maintenance Due Date Last Done Comments Diabetes: Ophthalmology Exam 10/08/2020 Diabetes: Pedal Pulse Checked 10/08/2020 Diabetes: Sensory Foot Exam 10/08/2020 Diabetes: Visual Foot Exam 10/08/2020 Diabetes: Hemoglobin A1C 12/13/2024 025, 08/05/2023, 05/13/2021, Additional history exists Influenza Vaccine (#1) 2025 5, 07/13/2020, 07/12/2019, Additional history exists Pneumococcal Vaccine: 50+ Years Completed 01/02/2023, 07/12/2019 Pneumococcal Vaccine: Peds (0 to 5 Years) and At-Risk Patients (6 to 49 Years) Discontinued 01/02/2023, 07/12/2019 Hepatitis B Vaccine Aged Out No [...] 1.80(A) 0.50 - 1.10 mg/dL eGFR Non-Afr Nigerien 28 eGFR 32 Hemoglobin A1C 5.1 4.0 - 6.0 05/13/2021 Historical Provider LAB BLOOD ORDERABLES Jocelyn l Result from Last 3 Months or Most Recently Relevant to Health Maintenance Insurance [employer] Dual [facility] ([id number]) Care Teams Wood Patternmaker Relationship Specialty Start Date End Date Suzanna Dao MD [address] [place] [phone] PCP - General Internal Medicine 12/27/24
--- OUTSIDE RECORDS SUMMARY | 2025-05-12 14:23 | XMS_ITS | Encounter Summary ---
Author Organization [employer] Address [address] [place] [address] [place] [address] Care Team Providers Care Information Assurance Specialist Name Role Phone Suzanna Dao MD Primary Care Provider + Reason for Visit * Reason Onset Date Comments podiatry referral 05/12/2025 Encounter Details Date Type Department Care Team ([facility] st Contact Info) Description 05/12/2025 Telephone [facility] MED[facility]INE [address] [place], [place] [phone] Suzanna Dao MD 230 [place], [place] [phone] podiatry referral Social History Tobacco Use Types Packs/Day Years [...] encounter Miscellaneous Notes * Telephone Encounter - Ivania Brown MA - 05/12/2025 1:24 PM EDT Referral follow up for podiatry. Called [facility] [phone] & spoke to travel freight and passenger agent Valeria. Pt has an appt for 06/26/2025 @ 1:15pm. Asked if they can fax office note, verified fax #. documented in this encounter Plan of Treatment Upcoming Encounters Date Type Department Care Team (Late st Contact Info) Description 05/15/2025 10:30 AM EDT Office Visit [facility] [address] [place] [address] Suzanna Dao MD 230 [place] [address] documented as of this encounter Visit Diagnoses Not on filedocumented in this encounter Care Teams Information Assurance Specialist Relationship Specialty Start Date End Date Suzanna Dao MD [address] [place] [phone] PCP - General Family Medicine 07/21/19 documented as of this encounter
--- OUTSIDE RECORDS SUMMARY | 2025-05-12 14:23 | XMS_ITS | Encounter Summary ---
Author Organization [facility] Address [address] [facility] [address] [place] [address] Phone Care Team Providers Care Operations Consultant Name Role Phone Suzanna Dao MD Primary Care Provider + [phone] Encounter Details Date Type Department Care Team ( Contact Info) Description 01/29/2023 Telephone [facility] [address] [place] [address] [place] [address] Vickie Barros Social History Tobacco [...] EDT This PT is requesting a refill, Dbera is unavailable today if you could please fill this script for this PT. torsemide (DEMADEX) 20 MG tablet documented in this encounter Plan of Treatment Upcoming Encounters Date Type Department Care Team (Latest Contact Info) Description 05/24/2025 11:00 AM EDT Office Visit [facility] [address] [facility] [address] [place] [address] Grey Prado MD [address] [facility] [address] [place] [address] 05/26/2025 Orders Only [facility] [address] [address] Grey Prado MD [address] [address] Chronic kidney disease, stage 4 [...] (HCC); Hypercalcemia documented as of this encounter Visit Diagnoses Not on filedocumented in this encounter Care Teams Operations Consultant Relationship Specialty Start Date End Date Suzanna Dao MD [address] [place] [phone] PCP - General Internal Medicine 12/27/24 documented as of this encounter
--- OUTSIDE RECORDS SUMMARY | 2025-05-12 14:23 | XMS_ITS | Encounter Summary ---
Author Organization [facility] Address [address] [facility] [address] [place] [address] Phone Care Team Providers Care Patient Portal Representative Name Role Phone Suzanna Dao MD Primary Care Provider + [phone] Encounter Details Date Type Department Care Team (Late Contact Info) Description 05/28/2022 Telephone [facility] [address] [facility] [address] [facility] [address] [place] [phone] Gurwinder Durand, [address] [address] Social History Tobacco Use Types Packs/Day Years [...] refill for dilTIAZem CD. Please send to [facility] pharmacy Thank you documented in this encounter Plan of Treatment Upcoming Encounters Date Type Department Care Team (Latest Contact Info) Description 05/24/2025 11:00 AM EDT Office Visit [facility] [address] [facility] 204 [place] [phone] Grey Prado MD [address] [address] 05/26/2025 Orders Only [facility] [address] [address] Grey Prado MD [address] [address] Chronic kidney disease, stage 4 [...] on filedocumented in this encounter Care Teams Patient Portal Representative Relationship Specialty Start Date End Date Suzanna Dao MD [address] [place] [phone] PCP - General Internal Medicine 12/27/24 documented as of this encounter
--- OUTSIDE RECORDS SUMMARY | 2025-05-12 14:23 | XMS_ITS | Encounter Summary ---
Author Organization [employer] Address [address] [facility] 7 [place] [address] Care Team Providers Care Principal Investigator Name Role Phone Suzanna Dao MD Primary Care Provider + Encounter Details Date Type Department Care Team (Latest Contact Info) Description 05/09/2025 Travel Social History Tobacco Use Types Packs/Day Years Used Date Smoking Tobacco: Never Smokeless Tobacco: Never Alcohol Use Standard Drinks/Week Comments Never 0 (1 standard drink = 0.6 oz pur e alcohol) Housing Stability Answer Date Recorded What is your housing situation today? I have edgard viv 12/30/[address] you li [...] 10:30 AM EDT Office Visit [facility] MEDICINE [address] [place] [address] Suzanna Dao MD 230 [place] [address] documented as of this encounter Visit Diagnoses Not on filedocumented in this encounter Care Teams Principal Investigator Relationship Specialty Start Date End Date Suzanna Dao MD 230 [place], [place] [phone] PCP - General Family Medicine 07/21/19 documented as of this encounter
--- OUTSIDE RECORDS SUMMARY | 2025-05-12 14:23 | XMS_ITS | Encounter Summary ---
Author Organization [facility] Address 100 [facility] 200 [place] [address] Phone Care Team Providers Care Stonework Tracer Name Role Phone Suzanna Dao MD Primary Care Provider + [phone] Reason for Visit * Reason Comments Med Refill Encounter Details Date Type Department Care Team (Late st Contact Info) Description 04/22/2022 Refill [facility] 100 [facility] 200 [place] [phone] Gurwinder Durand, DO [address] [place] [address] Social History Tobacco Use Types Packs/Day Years [...] Office Visit [facility] [address] [phone] Grey Prado MD [address] [address] 05/26/2025 Orders Only [facility] [address] [address] Grey Prado MD [address] [address] Chronic kidney disease, stage 4 (severe) (HCC); [...] on filedocumented in this encounter Care Teams Stonework Tracer Relationship Specialty Start Date End Date Suzanna Dao MD [address] [place] [phone] PCP - General Internal Medicine 12/27/24 documented as of this encounter
--- OUTSIDE RECORDS SUMMARY | 2025-05-12 14:23 | XMS_ITS | Encounter Summary ---
Author Organization [employer] Address [address] [place] [address] Care Team Providers Care Weigh Machine Operator Name Role Phone Suzanna Dao MD Primary Care Provider + Encounter Details Date Type Department Care Team ([facility] Contact Info) Description 03/03/2023 Orders Only [facility] [address] [place], [place] [phone] Vickie Patel LPN Social History Tobacco Use [...] Department Care Team (Late Contact Info) Description 05/15/2025 10:30 AM EDT Office Visit [facility] 230 [place], [place] [phone] Suzanna Dao MD 230 [place], [place] [phone] documented as of this encounter Visit Diagnoses Not on filedocumented in this encounter Care Teams Weigh Machine Operator Relationship Specialty Start Date End Date Suzanna Dao MD [address] [place] [address] PCP - General Family Medicine 07/21/19 documented as of this encounter
== END 2025-05-12 14:23 | disposition home or self-care (01) ==
LOC: HO.HPS 13:54
PROVIDERS: PCP Internal Medicine; Visit Provider Hospitalist
DX: J98.4 Other disorders of lung (principal); J98.6 Disorders of diaphragm; R91.8 Other nonspecific abnormal finding of lung field; J44.9 Chronic obstructive pulmonary disease, unspecified; F51.01 Primary insomnia; R51.9 Headache, unspecified
CPT/HCPCS: 99214; G2211

== ENCOUNTER → 2025-05-12 13:54 | Outpatient (BNVA) | payer OTHER, SELFPAY | PROVIDERS: PCP Internal Medicine; Visit Provider Hospitalist | DX: J44.9 Chronic obstructive pulmonary disease, unspecified (principal); J98.4 Other disorders of lung; J98.6 Disorders of diaphragm; R91.8 Other nonspecific abnormal finding of lung field; G47.00 Insomnia, unspecified; F51.01 Primary insomnia; R51.9 Headache, unspecified; Z99.81 Dependence on supplemental oxygen | CPT/HCPCS: 99212 ==

== ENCOUNTER 2025-05-15 11:36 | Outpatient (REF) | payer OTHER, SELFPAY ==
--- OUTSIDE RECORDS SUMMARY | 2025-05-15 10:30 | XMS_ITS | Encounter Summary ---
Author Organization [employer] Address [address] [place] [address] 7 [place] [address] Care Team Providers Care Nuclear Equipment Test Engineer Name Role Phone Suzanna Dao MD Primary Care Provider + Encounter Details Date Type Department Care Team ([facility] st Contact Info) Description 05/15/2025 10:30 AM EDT Office Visit [facility] MEDICINE 230 [place], [place] [phone] Suzanna Dao MD [address] [place], [place] [phone] Type 2 diabetes mellitus with stage 3 chronic kidney disease, without long-term current use of insulin, unspecified whether stage 3a or 3b CKD (CMS/HCC) (Primary Dx); Hearing loss of right ear, unspecified hearing loss type; Incontinence of feces with fecal urgency; Recurrent major depressive disorder, in partial remission (CMS/HCC); 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); Dependence on supplemental oxygen Social History Tobacco Use Types Packs/Day Years Used Date Smoking Tobacco: Never Smokeless Tobacco: Never Alcohol Use Standard Drinks/Week Comments Never 0 (1 standard drink = 0.6 oz pur e alcohol) Depression Answer Date Recorded Patient Health Questionnaire-9 Score 11 05/15/2025 Patient Health Questionnaire-9 Score 11 05/15/2025 Last PHQ-9: Questionnaire Data Not on file 0 05/15/2025 Housing Stability Answer Date Recorded What is [...] Date Recorded Patient Health Questionnaire-2 Score 2 05/15/2025 Internet Access Answer Date Recorded Internet Access [...] Sign Reading Time Taken Comments Blood Pressure 130/82 05/15/2025 10:44 AM EDT Pulse 63 05/15/2025 10:44 AM EDT Temperature 35.8 C (96.4 F) 05/15/2025 10:44 AM EDT Respiratory Rate 17 05/15/2025 10:4 4 AM EDT Oxygen Saturation 90% 05/15/2025 10: 44 AM EDT pt uses oxygent Inhaled Oxygen Concentration - - Weight 81.6 kg (180 lb) 05/15/2025 10:4 4 AM EDT Height 157.5 cm (5' 2 ) 05/15/2025 10:4 4 AM EDT Body Mass Index 32.92 05/15/2025 10:44 AM EDT documented in this encounter Functional Status * Over the past 2 weeks, how often have you been bothered by any of the following problems? Question Answer Date of Assessment Author Patient Health Questionnaire-2 Score 2 04/2025 11:35 AM EDT Maria Del Carmen Lynch MA * Little interest or pleasure in doing things Answer Date of Assessment Author Several days 05/15/2025 11:35 AM Cristy Villa MA * Feeling down, depressed, or hopeless Answer Date of Assessment Author Several days 05/15/2025 11:35 AM Cristy Villa MA * Trouble falling or staying asleep, or sleeping too much Answer Date of Assessment Author Nearly every day 05/15/2025 11:35 AM Maria Del Carmen Villa MA * Feeling tired or having little energy Answer Date of Assessment Author More than half the days 05/15/2025 11:35 AM Maria Del Carmen Villa MA * Poor appetite or overeating Answer Date of Assessment Author Not at all 05/15/2025 11:35 AM Cristy Villa MA * Feeling bad about yourself - or that you are a failure or have let yourself or your family down Answer Date of Assessment Author More than half the days 05/15/2025 11:35 AM Maria Del Carmen Villa MA * Trouble concentrating on things, such as reading the newspaper or watching television Answer Date of Assessment Author Several days 05/15/2025 11:35 AM Cristy Villa MA * Moving or speaking so slowly that other people could have noticed? Or the opposite - being so fidgety or restless that you have been moving around a lot more than usual. Answer Date of Assessment Author Several days 05/15/2025 11:35 AM Cristy Villa MA * Thoughts that you would be better off or hurting yourself in some way Answer Date of Assessment Author Not at all 05/15/2025 11:35 AM Cristy Villa MA * Patient Health Questionnaire-9 Score Answer Date of Assessment Author 11 05/15/2025 11:35 AM Cristy Villa MA * Over the last 2 weeks, how often have you been bothered by any of the following problems? Question Answer Date of Assessment Author Feeling nervous, anxious, or on edge 2 04/2025 11:36 AM Maria Del Carmen Villa MA Not being able to stop or co ntrol worrying 2 05/15/2025 11:36 AM EDT Maria Del Carmen Lynch MA Worrying too much about diff erent things 2 05/15/2025 11:36 AM EDT Maria Del Carmen Lynch MA Trouble relaxing 3 05/15/2025 11:36 AM EDT Maria Del Carmen Lynch MA Being so restless that it is hard to sit still 0 05/15/2025 11:36 AM EDT Maria Del Carmen Lynch MA Becoming easily annoyed or irritable 3 04/2025 11:36 AM EDT Maria Del Carmen Lynch MA Feeling afraid as if somethi ng awful might happen 2 05/15/2025 11:36 AM EDT Maria Del Carmen Lynch MA HANNA-7 Total Score 14 05/15/2025 11:36 AM EDT Maria Del Carmen Lynch MA documented as of this encounter Plan of Treatment Not on file documented as of this encounter Procedures Procedure Name Priority Date/Time Associated Diagnosis Comments POCT GLYCATED HEMOGLOBIN, TOTAL Routine 05/15/2025 11:00 AM EDT Type 2 diabetes mellitus with stage 3 chronic kidney disease, without long-term current use of insulin, unspecified whether stage 3a or 3b CKD ([facility]) POCT GLUCOSE Routine 05/15/2025 11:00 AM EDT Type 2 diabetes mellitus with stage 3 chronic kidney disease, without long-term current use of insulin, unspecified whether stage 3a or 3b CKD ([facility]) documented in this encounter Results * (ABNORMAL) POCT Hgb A1c (05/15/2025 11:00 AM EDT) Pathologist [facility] Hemoglobin A1C 6.5(A) 4.0 - 5.7 % QC Media Lot # [id number] Lot# Expiration Date 41,84 Blood 05/15/2025 11:0 0 AM EDT Suzanna Dao MD POINT OF CARE TEST ENTER /EDIT ORDERABLES Final Result * POCT Glucose (05/15/2025 11:00 AM EDT) Pathologist [facility] Glucose Blood, POC 117 60 - 200 mg/dL QC Media Lot # [id number] Lot# Expiration Date 113, Blood Capillary blood specimen / Unknown 05/15/2025 11:00 AM EDT Suzanna Dao MD POINT OF CARE TEST ENTER /EDIT ORDERABLES Final Result documented in this encounter Visit Diagnoses Diagnosis Type 2 diabetes mellitus with stage 3 chronic kidney disease, without long-term current use of insulin, unspecified whether stage 3a or 3b CKD ([facility])- Primary Hearing loss of right ear, unspecified hearing loss type Incontinence of feces with fecal urgency Recurrent major depressive disorder, in partial remission ([facility]) Mild vascular dementia with mood disturbance ([facility]) Dependence on supplemental oxygen documented in this encounter Additional Health Concerns Assessment Noted Time PHQ-9 Depression Total Score: 11 025 11:35 AM EDT documented as of this encounter Care Teams Nuclear Equipment Test Engineer Relationship Specialty Start Date End Date Suzanna Dao MD [address] [place] [phone] PCP - General Family Medicine 07/21/19 documented as of this encounter
[2025-05-15 14:06] LABS: Hematocrit 31.5 % (37.0-47.0); Hemoglobin 10.6 g/dl (12.0-16.0); Imm Gran Abs Auto 0.02 X10*3/uL (0.00-0.03); Imm Gran Pct Auto 0.5 % (0.0-0.4); Lymphocytes Absolute Auto 0.8 X10*3/uL (1.2-4.9); Mean Corpuscular HGB Conc 33.7 g/dl (31.0-35.0); Mean Corpuscular Hemoglobin 29.0 pg (27.0-33.0); Mean Corpuscular Volume 86.3 fL (80.0-98.0); NRBC Abs Auto 0.000 X10*3/uL (0.0-0.012); NRBC Pct Auto 0.0 /100WBC (0.0-0.2); Red Blood Count 3.65 X10*6/uL (4.20-5.50); White Blood Count 4.2 X10*3/uL (4.8-10.8)
[2025-05-15 14:13] LABS: MANUAL DIFF FLAG SCAN; Platelet Count 85 X10*3/uL (160-400)
--- OUTSIDE RECORDS SUMMARY | 2025-05-15 14:16 | XMS_ITS | Encounter Summary ---
Author Organization [employer] Address [address] [place] [address] [place] [address] Care Team Providers Care Photographic Press Screwmaker Name Role Phone Suzanna Dao MD Primary Care Provider + Reason for Visit * Reason Onset Date Comments Med Refill 04/11/2024 Encounter Details Date Type Department Care Team ([facility] st Contact Info) Description 04/11/2024 Refill [facility] [address] [place], [place] [phone] Suzanna Dao MD 230 [place], [place] [phone] 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) [...] on file documented as of this encounter Visit Diagnoses Diagnosis 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) documented in this encounter Care Teams Photographic Press Screwmaker Relationship Specialty Start Date End Date Suzanna Dao MD [address] [place] [phone] PCP - General Family Medicine 07/21/19 documented as of this encounter
--- OUTSIDE RECORDS SUMMARY | 2025-05-15 14:16 | XMS_ITS | Encounter Summary ---
Author Organization [facility] Address [address] [facility] 200 [place] [address] Phone Care Team Providers Care Missile Pad Mechanic Name Role Phone Suzanna Dao MD Primary Care Provider + [phone] Encounter Details Date Type Department Care Team (Late Contact Info) Description 05/28/2022 Telephone [facility] [address] [facility] [address] [facility] [address] [place] [phone] Gurwinder Durand, [address] [address] Social History Tobacco Use Types Packs/Day Years [...] refill for dilTIAZem CD. Please send to [facility] pharmacy Thank you documented in this encounter Plan of Treatment Upcoming Encounters Date Type Department Care Team (Latest Contact Info) Description 05/24/2025 11:00 AM EDT Office Visit [facility] [address] [facility] 204 [place] [phone] Grey Prado MD [address] [address] 05/26/2025 Orders Only [facility] [address] [address] Grey Prado MD [address] [address] Chronic kidney disease, stage 4 [...] on filedocumented in this encounter Care Teams Missile Pad Mechanic Relationship Specialty Start Date End Date Suzanna Dao MD [address] [place] [address] PCP - General Internal Medicine 12/27/24 documented as of this encounter
--- OUTSIDE RECORDS SUMMARY | 2025-05-15 14:16 | XMS_ITS | Encounter Summary ---
Author Organization [facility] Address [address] [place] [address] Phone Care Team Providers Care Vest Front Presser Name Role Phone Suzanna Dao MD Primary Care Provider + [phone] Encounter Details Date Type Department Care Team (Late st Contact Info) Description 11/28/2020 Orders Only [facility] [address] [place] [phone] Provider, MD Mark Social History Tobacco Use [...] Office Visit [facility] [address] [facility] [address] [place] [address] Grey Prado MD [address] [facility] [address] [place] [address] 05/26/2025 Orders Only [facility] [address] [phone] Grey Prado MD [address] [phone] Chronic kidney disease, stage 4 (severe) (HCC); [...] on filedocumented in this encounter Care Teams Vest Front Presser Relationship Specialty Start Date End Date Suzanna Dao MD [address] [place] [address] PCP - General Internal Medicine 12/27/24 documented as of this encounter
--- OUTSIDE RECORDS SUMMARY | 2025-05-15 14:16 | XMS_ITS | Encounter Summary ---
Author Organization [employer] Address 75 [facility] 7 [place] [address] Care Team Providers Care Historical Records Administrator Name Role Phone Suzanna Dao MD Primary Care Provider + Reason for Visit * Reason Comments Med Refill Encounter Details Date Type Department Care Team ([facility] st Contact Info) Description 04/11/2024 Refill [facility] 230 [place], [place] [phone] Suzanna Dao MD 230 [place] [address] Social History Tobacco Use Types Packs/Day Years [...] on filedocumented in this encounter Care Teams Historical Records Administrator Relationship Specialty Start Date End Date Suzanna Dao MD [address] [place] [address] PCP - General Family Medicine 07/21/19 documented as of this encounter
--- OUTSIDE RECORDS SUMMARY | 2025-05-15 14:16 | XMS_ITS | Encounter Summary ---
Author Organization [employer] Address [address] [place] [address] [place] [address] Care Team Providers Care Policy Change Clerks Supervisor Name Role Phone Suzanna Dao MD Primary Care Provider + Reason for Visit * Reason Onset Date Comments podiatry referral 05/12/2025 Encounter Details Date Type Department Care Team ([facility] st Contact Info) Description 05/12/2025 Telephone [facility] 230 [place], [place] [phone] Suzanna Dao MD 230 [place], [place] [phone] podiatry referral Social History Tobacco Use Types [...] Referral follow up for podiatry. Called [facility] [phone] & spoke to nurse receptionist Valeria. Pt has an appt for 06/26/2025 @ 1:15pm. Asked if they can fax office note, verified fax #. documented in this encounter Plan of Treatment Not on file documented as of this encounter Visit Diagnoses Not on filedocumented in this encounter Care Teams Policy Change Clerks Supervisor Relationship Specialty Start Date End Date Suzanna Dao MD [address] [place] [address] PCP - General Family Medicine 07/21/19 documented as of this encounter
--- OUTSIDE RECORDS SUMMARY | 2025-05-15 14:16 | XMS_ITS | Clinical Summary ---
Author Organization [facility] Address [address] [address] Phone Care Team Providers Care Mortgage Protection Specialist Name Role Phone Suzanna Dao MD Primary Care Provider + [phone] Allergies Active Allergy Reactions Criticality Noted Date [...] (05/23/2024): Last Assessment & Plan: Followed by odd piece checker, she is O2 dependent, continue at 3L [...] Refill [facility] [address] [address] Kristopher Martinez from Last 3 [...] Office Visit [facility] [address] [place] [phone] Grey Prado MD [address] [phone] 05/26/2025 Orders Only [facility] [address] [address] Grey Prado MD [address] [address] Chronic kidney disease, stage 4 [...] 1.80(A) 0.50 - 1.10 mg/dL eGFR Non-Afr Panamanian 28 eGFR 32 Hemoglobin A1C 5.1 4.0 - 6.0 05/13/2021 Historical Provider LAB BLOOD ORDERABLES Jocelyn l Result from Last 3 Months or Most Recently Relevant to Health Maintenance Insurance [employer] [facility] ([id number]) Care Teams Mortgage Protection Specialist Relationship Specialty Start Date End Date Suzanna Dao MD [address] [place] [phone] PCP - General Internal Medicine 12/27/24
--- OUTSIDE RECORDS SUMMARY | 2025-05-15 14:16 | XMS_ITS | Encounter Summary ---
Author Organization [employer] Address [address] [place] [address] [place] [address] Care Team Providers Care Draw Frame Runner Name Role Phone Suzanna Dao MD Primary Care Provider + Reason for Visit * Reason Onset Date Comments Med Refill 11/20/2023 Encounter Details Date Type Department Care Team ([facility] st Contact Info) Description 11/20/2023 Refill [facility] 230 [place], [place] [phone] Marysol Dior MD 230 [place] [address] Social History Tobacco Use Types Packs/Day Years [...] on filedocumented in this encounter Care Teams Draw Frame Runner Relationship Specialty Start Date End Date Suzanna Dao MD [address] [place] [address] PCP - General Family Medicine 07/21/19 documented as of this encounter
--- OUTSIDE RECORDS SUMMARY | 2025-05-15 14:16 | XMS_ITS | Clinical Summary ---
Author Organization [employer] Address [address] [place] [address] 7 [place] [address] Care Team Providers Care Paperhanger Apprentice Name Role Phone Suzanna Dao MD [...] mL 01/27/20 Active Lancets (OneTouch Delica Plus [id number]) mis Apply 1 each topically 2 times [...] Plan (01/07/2024 2:01 PM EDT): Followed by risk compliance manager, she is O2 dependent, continue at 3L NC Intermittent claudication 01/07/2024 Hallucinations 01/07/2024 Assessment & Plan (01/07/2024 2:02 PM EDT): Could be related to depression/psychotic event vs metabolic form hypoglycemia or hypoxia Order labs to r/o worm infestation or other metabolic conditions Fu closely w/ mental health prescriber Stage 3b chronic kidney disease 08/05/2023 Overview (01/07/2024): FU [facility], Dr Prado Assessment & Plan (01/07/2024 2:01 PM EDT): 2/2 to DM and HTN Check GFR and fu w cabin cleaning supervisor every yr () Assessment & Plan (08/05/2023 10:55 AM EST): GFR has remained stable Contract Accountant regarding control of DM and hypertension Incontinence of feces with fecal urgency 023 Overflow incontinence of urine 04/20/2023 Hearing loss of right ear 04/16/2023 Assessment & Plan (09/14/2024 1:48 PM EST): Never went to audiology clinic, will send referral. Assessment & Plan (08/05/2023 10:53 AM EST): Refer to audiology Calcification of breast 10/22/2022 Chronic diastolic heart [...] controlled Refer back to cardiology in [facility] with Dr. Abdul for the f/u Dependence [...] audiology clinic, will send referral. Hyperlipidemia 10/22/2022 Long toenail 10/22/2022 Assessment & Plan (09/14/2024 1:49 PM EST): Needs toenail trimming, refer to new Farmworker. Neuropathy of left foot 10/22/2022 Recurrent major [...] EDT): Oxygen dependent Continue close fu with risk compliance manager No change in medications Senile osteoporosis 10/22/2022 Snoring 10/22/2022 Tension-type headache [...] FU in 3 months. Referral to new restorative art embalmer. Reminded to schedule eye clinic appointment. 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 FU closely with risk compliance manager Neck pain 10/22/2022 05/15/2025 Pneumonia due to COVID-19 virus 10/22/2022 10/08/2023 Rib pain 10/22/2022 05/15/2025 Encounters Date Type Department Care Team Description 05/15/2025 10:30 AM EDT Office Visit [facility] [address] [place] [address] Suzanna Dao MD Type 2 diabetes mellitus with stage 3 chronic kidney disease, without long-term current use of insulin, unspecified whether stage 3a or 3b CKD (CMS/HCC) (Primary Dx); Hearing loss of right ear, unspecified hearing loss type; Incontinence of feces with fecal urgency; Recurrent major depressive disorder, in partial remission (CMS/HCC); 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); Dependence on supplemental oxygen 05/15/2025 Travel 05/13/2025 Travel 05/12/2025 Telephone [facility] [address] [place] [address] Suzanna Dao MD podiatry referral 05/12/2025 Telephone [facility]ICINE 230 [place] [address] Suzanna Dao MD Chart Prep 05/09/2025 11:15 AM EDT Office Visit [facility] OPTOMETRY [address] [place] [address] Mary Grace Suarez, OD Type 2 diabetes mellitus without ophthalmic manifestations ([facility]/HCC) (Primary Dx); Combined forms of age-related cataract of both eyes; Open angle with borderline findings, high risk, bilateral; Presbyopia 05/09/2025 Travel 05/04/2025 Telephone [facility] MEDICINE [address] [place] [address] Suzanna Dao MD Durable Medical Equipment 05/04/2025 Patient Outreach [facility] [address] [place] [address] Suzanna Dao MD Pre-visit Planning (SDOH screening completed on 09/08/2024) 04/27/2025 Telephone [facility] [address] [place] [address] Suzanna Dao MD Durable Medical Equipment 04/20/2025 Telephone [facility] [address] [place] [address] Suzanna Dao MD Durable Medical Equipment (Multiple items) 03/27/2025 Refill [facility]ICINE [address] [place] [address] Suzanna Dao MD 03/27/2025 Refill [facility] [address] [place] [address] Niecy Nunez MD Mild vascular dementia with mood disturbance ([facility]) 02/22/2025 Telephone [facility] [address] [place] [address] Suzanna Dao MD telephone call from Last [...] your housing situation today? I have edgard anm 12/30/[address] you li [...] Mass Index 32.92 05/15/2025 10:44 AM EDT Plan of Treatment Health Maintenance Due Date Last Done Comments Hepatitis C Screening 1968 Lipid Panel 04/02/2022 04/02/2021, 09/06/2020 COVID-19 Vaccine ( season) 2025 09/14/2024, 08/05/2023, 06/25/2022, Additional history exists Influenza Vaccine (#1) 2025 , 08/05/2023, 08/05/2023, Additional history exists SDOH Screening 09/08/2025 09/08/2024 Depression Monitoring 11/12/2025 05/15/2025, 025 Diabetes: Hemoglobin A1C 11/12/2025 025, 09/14/2024, 08/05/2023, Additional history exists Alcohol/Substance Use Screening 05/15/2026 05/15/2025 Diabetes: Foot Exam 05/15/2026 05/15/2025, 05/15/2025, 05/15/2025, Additional history exists Tobacco Screening 05/15/2026 05/15/2025 Eye Exam 05/09/2027 05/09/2025, 10/2024, 05/09/2025, Additional [...] unspecified whether stage 3a or 3b CKD (CMS/[facility]) POCT GLUCOSE Routine 05/15/2025 11:00 AM EDT Type 2 diabetes mellitus with stage 3 chronic kidney disease, without long-term current use of insulin, unspecified whether stage 3a or 3b CKD (CMS/HCC) LIPID PANEL, STANDARD Routine 04/02/2021 2:36 PM EDT from Last 3 Months or Most Recently Relevant to Health Maintenance Results * (ABNORMAL) POCT Hgb A1c (05/15/2025 11:00 AM EDT) Hemoglobin A1C 6.5(A) 4.0 - 5.7 % QC Media Lot # [id number] Lot# Expiration Date 39,259 Blood 05/15/2025 11:0 0 AM EDT Suzanna Dao MD POINT OF CARE TEST ENTER /EDIT ORDERABLES Final Result * POCT Glucose (05/15/2025 11:00 AM EDT) Glucose Blood, POC 117 60 - 200 mg/dL QC Media Lot # [id number] Lot# Expiration Date Blood Capillary blood specimen / Unknown 05/15/2025 11:00 AM EDT Suzanna Dao MD POINT OF CARE TEST ENTER /EDIT ORDERABLES Final Result * (ABNORMAL) LIPID PANEL, STANDARD (04/02/2021 2:36 PM EDT) Chol/HDLC Ratio 3.2 <5.0 (calc) [facility] Cholesterol, Total 146 <200 mg/dL [facility] HDL Cholesterol 46(L) > OR = 50 mg/dL [facility] LDL Cholesterol 79 mg/dL (calc) [facility] Comment: Reference range: <100 Desirable range <100 mg/dL for primary prevention; <70 mg/dL for patients with CHD or diabetic patients with > or = 2 CHD risk factors. LDL-C is now calculated using the Dontae-Francesco calculation, which is a validated novel method providing better accuracy than the Friedewald equation in the estimation of LDL-C. Dontae SS et al. LLOYD. 2013;310(19): 2697-6381 (http://education.GroundLink.com/faq/RXJ790) Non-HDL Cholesterol 100 <130 mg/dL (calc) [facility] Comment: For patients with diabetes plus 1 major ASCVD risk factor, treating to a non-HDL-C goal of <100 mg/dL (LDL-C of <70 mg/dL) is considered a therapeutic option. Triglycerides 116 <150 mg/dL [facility] 04/02/2021 2:36 PM EDT Suzanna Dao MD LAB BLOOD ORDERABLES Fin al Result [facility] [address] from Last 3 Months or Most Recently Relevant to Health Maintenance [place] [address] [place] [address] [facility] Directives Documents on File Type Date Recorded Patient Urban Sociologist Expl anation Advance Directives and Living Will 11/11/2024 3:19 PM Health Care Proxy Care Teams Paperhanger Apprentice Relationship Specialty Start Date End Date Suzanna Dao MD [address] [place] [address] PCP - General Family Medicine 07/21/19
--- OUTSIDE RECORDS SUMMARY | 2025-05-15 14:16 | XMS_ITS | Encounter Summary ---
Author Organization [facility] Address [address] [facility] [address] [place] [address] Phone Care Team Providers Care Sanding Line Operator Name Role Phone Suzanna Dao MD Primary Care Provider + [phone] Encounter Details Date Type Department Care Team ( Contact Info) Description 01/29/2023 Telephone [facility] [address] [place] [address] Vickie Barros Social History Tobacco [...] Visit [facility] [address] [facility] [address] [place] [address] Grey Prado MD [address] [facility] 204 [place] [address] 05/26/2025 Orders Only [facility] [address] [address] Grey Prado MD [address] [address] Chronic kidney disease, stage 4 [...] on filedocumented in this encounter Care Teams Sanding Line Operator Relationship Specialty Start Date End Date Suzanna Dao MD [address] [place] [address] PCP - General Internal Medicine 12/27/24 documented as of this encounter
--- OUTSIDE RECORDS SUMMARY | 2025-05-15 14:16 | XMS_ITS | Encounter Summary ---
Author Organization [employer] Address [address] [facility] 7 [place] [address] Care Team Providers Care Digital Intern Name Role Phone Moses Dao MD Primary Care Provider + Encounter Details Date Type Department Care Team (Latest Contact Info) Description 05/15/2025 Travel Social History Tobacco Use Types Packs/Day [...] AM EDT documented as of this encounter Functional Status * Over the past 2 weeks, how often have you been bothered by any of the following problems? Question Answer Date of Assessment Author Patient Health Questionnaire-2 Score 2 04/2025 11:35 AM EMETERIOT Maria Del Carmen Lynch MA * Little interest or pleasure in doing things Answer Date of Assessment Author Several days 05/15/2025 11:35 AM EMETERIOT Cristy Lynch MA * Feeling down, depressed, or hopeless [...] Assessment Author Several days 05/15/2025 11:35 AM EDT Cristy Lynch MA * Thoughts that you would be better off or hurting yourself in some way Answer Date of Assessment Author Not at all 05/15/2025 11:35 AM EMETERIOT Cristy Lynch MA * Patient Health Questionnaire-9 Score Answer Date of Assessment Author 11 05/15/2025 11:35 AM EDT Cristy Lynch MA * Over the last 2 weeks, how often have you been bothered by any of the following problems? Question Answer Date of Assessment Author Feeling nervous, anxious, or on edge 2 04/2025 11:36 AM EDT Maria Del Carmen Lynch MA Not being able to stop or [...] Diagnoses Not on filedocumented in this encounter Additional Health Concerns Assessment Noted Time PHQ-9 Depression Total Score: 11 025 11:35 AM EDT documented as of this encounter Care Teams Digital Intern Relationship Specialty Start Date End Date Moses Dao MD [address] [place] [address] PCP - General Family Medicine 07/21/19 documented as of this encounter
--- OUTSIDE RECORDS SUMMARY | 2025-05-15 14:16 | XMS_ITS | Clinical Summary ---
Author Organization [facility] Address 175 [place] [address] Phone Care Team Providers Care Computer Science Teacher Name Role Phone Suzanna Dao MD [...] PM EDT Office Visit [facility] [place] [address] [address] Jose Cannon DPM [address] [address] Health Maintenance Due Date Last Done Comments [...] [place] [facility] Care Teams Computer Science Teacher Relationship Specialty Start Date End Date Suzanna Dao MD [address] [place] [phone] PCP - General Internal Medicine 10/11/24
--- OUTSIDE RECORDS SUMMARY | 2025-05-15 14:16 | XMS_ITS | Encounter Summary ---
Author Organization [employer] Address 75 [facility] 7 [place] [address] Care Team Providers Care Metal Ceiling Builder Name Role Phone Suzanna Dao MD Primary Care Provider + Reason for Visit * Reason Onset Date Comments FYI 10/01/2023 Encounter Details Date Type Department Care Team ([facility] st Contact Info) Description 10/01/2023 Telephone [facility] MEDICINE 230 [place], [place] [phone] Suzanna Dao MD 230 [place], [place] [phone] FYI Social History Tobacco Use Types Packs/Day [...] 1:44 PM EST Tc from Eduardo with [facility] informing that pt was not able to be admitted today 10/01/2023 but hespoke with pt daughter Suzanna and are able to admit her tomorrow 10/02/2023 . documented in this encounter Plan of Treatment Not on file documented as of this encounter Visit Diagnoses Not on filedocumented in this encounter Care Teams Metal Ceiling Builder Relationship Specialty Start Date End Date Suzanna Dao MD [address] [place] [address] PCP - General Family Medicine 07/21/19 documented as of this encounter
--- OUTSIDE RECORDS SUMMARY | 2025-05-15 14:16 | XMS_ITS | Encounter Summary ---
Author Organization [employer] Address 75 [facility] 7t [place] [address] Care Team Providers Care Quality Control Assistant Name Role Phone Suzanna Dao MD Primary Care Provider + Encounter Details Date Type Department Care Team (Latest Contact Info) Description 05/13/2025 Travel Social History Tobacco Use Types Packs/Day [...] on filedocumented in this encounter Care Teams Quality Control Assistant Relationship Specialty Start Date End Date Suzanna Dao MD [address] [place] [address] PCP - General Family Medicine 07/21/19 documented as of this encounter
--- OUTSIDE RECORDS SUMMARY | 2025-05-15 14:16 | XMS_ITS | Encounter Summary ---
Author Organization [employer] Address [address] [place] [address] 7 [place] [address] Care Team Providers Care Conservation Enforcement Officer Name Role Phone Suzanna Dao MD Primary Care Provider + Encounter Details Date Type Department Care Team ([facility] Contact Info) Description 12/24/[address] [facility]EDS [address] [place] [address] Vickie Patel LPN Social History Tobacco Use [...] on filedocumented in this encounter Care Teams Conservation Enforcement Officer Relationship Specialty Start Date End Date Suzanna Dao MD [address] [place] [address] PCP - General Family Medicine 07/21/19 documented as of this encounter
--- OUTSIDE RECORDS SUMMARY | 2025-05-15 14:16 | XMS_ITS | Encounter Summary ---
Author Organization [employer] Address [address] [place] [address] 7 [place] [address] Care Team Providers Care Concrete Engineer Name Role Phone Suzanna Dao MD Primary Care Provider + Encounter Details Date Type Department Care Team (Late st Contact Info) Description 03/03/2023 Orders Only [facility] MED & PEDS [address] [place] [address] Vickie Patel LPN Social History Tobacco Use [...] on filedocumented in this encounter Care Teams Concrete Engineer Relationship Specialty Start Date End Date Suzanna Dao MD [address] [place] [address] PCP - General Family Medicine 07/21/19 documented as of this encounter
--- OUTSIDE RECORDS SUMMARY | 2025-05-15 14:16 | XMS_ITS | Encounter Summary ---
Author Organization [employer] Address [address] [facility] 7 [place] [address] Care Team Providers Care Thrasher Feeder Name Role Phone Suzanna Dao MD Primary Care Provider + Reason for Visit * Reason Onset Date Comments Med Refill 11/20/2023 Encounter Details Date Type Department Care Team ([facility] st Contact Info) Description 11/20/2023 Refill [facility] 230 [place], [place] [phone] Niecy Nunez MD 230 [place], [place] [phone] Social History Tobacco Use Types Packs/Day Years [...] on filedocumented in this encounter Care Teams Thrasher Feeder Relationship Specialty Start Date End Date Suzanna Dao MD [address] [place] [phone] PCP - General Family Medicine 07/21/19 documented as of this encounter
--- OUTSIDE RECORDS SUMMARY | 2025-05-15 14:16 | XMS_ITS | Encounter Summary ---
Author Organization [facility] Address [address] [facility] 200 [place] [address] Phone Care Team Providers Care Data Mining Analyst Name Role Phone Suzanna Dao MD Primary Care Provider + [phone] Reason for Visit * Reason Comments Med Refill Encounter Details Date Type Department Care Team (Late st Contact Info) Description 04/22/2022 Refill [facility] [address] [facility] 200 [place] [phone] Gurwinder Durand, DO [address] [place] [phone] Social History Tobacco Use Types Packs/Day Years [...] Office Visit [facility] [address] [phone] Grey Prado MD [address] [phone] 05/26/2025 Orders Only [facility] [address] [phone] Grey Prado MD [address] [phone] Chronic kidney disease, stage 4 (severe) (HCC); [...] on filedocumented in this encounter Care Teams Data Mining Analyst Relationship Specialty Start Date End Date Suzanna Dao MD [address] [place] [address] PCP - General Internal Medicine 12/27/24 documented as of this encounter
--- OUTSIDE RECORDS SUMMARY | 2025-05-15 14:16 | XMS_ITS | Encounter Summary ---
Author Organization [employer] Address [address] [place] [address] 7 [place] [address] Care Team Providers Care Planning Aide Name Role Phone Suzanna Dao MD Primary Care Provider + Reason for Visit * Reason Onset Date Comments Chart Prep 05/12/2025 Encounter Details Date Type Department Care Team ([facility] st Contact Info) Description 05/12/2025 [facility]phone [facility] 230 [place], [place] [phone] Suzanna Dao MD 230 [place], [place] [phone] Chart Prep Social History Tobacco Use Types [...] on filedocumented in this encounter Care Teams Planning Aide Relationship Specialty Start Date End Date Suzanna Dao MD [address] [place] [address] PCP - General Family Medicine 07/21/19 documented as of this encounter
[2025-05-15 14:32] LABS: Alanine Aminotransferase 12 U/L (0-31); Albumin Level 4.1 g/dL (3.5-5.0); Alkaline Phosphatase 86 U/L (39-117); Aspartate Amino Transferase 23 U/L (5-31); Cholesterol 176 mg/dL (<200); HDL Cholesterol 38 mg/dL (>40); Total Protein 6.9 g/dL (6.5-8.0); Triglycerides 187 mg/dL (<150)
[2025-05-15 14:34] LABS: Parathyroid Hormone Intact 282.0 pg/mL (8.7-77.1)
[2025-05-15 14:35] LABS: Alanine Aminotransferase 11 U/L (0-31); Albumin Level 4.0 g/dL (3.5-5.0); Alkaline Phosphatase 85 U/L (39-117); Anion Gap 14 (12-20); Aspartate Amino Transferase 19 U/L (5-31); Blood Urea Nitrogen 29 mg/dL (9-16); Calcium 11.0 mg/dL (8.4-10.2); Carbon Dioxide 38 mmol/L (22-29); Chloride 103 mmol/L (96-108); Estimated Glomerular Filt Rate 28; Magnesium 2.0 mg/dL (1.6-2.6); Potassium 4.5 mmol/L (3.3-5.1); Sodium 150 mmol/L (135-145); Total Protein 6.7 g/dL (6.5-8.0); Uric Acid 9.7 mg/dL (2.4-5.7)
[2025-05-15 14:55] LABS: Total Protein Urine Random 20 mg/dL (<12)
[2025-05-19 15:32] LABS: VITAMIN D (1,25 OH) D3 43 pg/mL; Vit D (1,25-Dihydroxy) Total 43 pg/mL (18-72); Vitamin D (1,25 OH) D2 <8 pg/mL
== END 2025-05-15 11:37 | disposition home or self-care (01) ==
LOC: HO.HHCL 11:36
PROVIDERS: PCP Internal Medicine; Visit Provider Internal Medicine Nephrology
DX: E11.22 Type 2 diabetes mellitus with diabetic chronic kidney disease (principal); N18.30 Chronic kidney disease, stage 3 unspecified
CPT/HCPCS: 36415; 80053; 80061; 80076; 82248; 82652; 83735; 83970; 84100; 84156; 84550; 85025

== ENCOUNTER 2025-07-19 10:41 | Outpatient (REF) | payer OTHER, SELFPAY ==
--- OUTSIDE RECORDS SUMMARY | 2025-07-19 12:52 | XMS_ITS | Encounter Summary ---
Author Organization [employer] Address [address] [place] [address] 7 [place] [address] Care Team Providers Care Senior Pl Sql Developer Name Role Phone Suzanna Dao MD Primary Care Provider + Encounter Details Date Type Department Care Team (Late st Contact Info) Description 03/03/2023 Orders Only [facility] MED & PEDS 505 [place] [address] Vickie Patel LPN Social History Tobacco Use [...] on filedocumented in this encounter Care Teams Senior Pl Sql Developer Relationship Specialty Start Date End Date Suzanna Dao MD [address] [place] [address] PCP - General Family Medicine 07/21/19 [employer] 06/09/25 documented as of this encounter
--- OUTSIDE RECORDS SUMMARY | 2025-07-19 12:52 | XMS_ITS | Clinical Summary ---
Author Organization [address] [facility] Address 175 [place] [address] Phone Care Team Providers Care Operating Room Nurse Name Role Phone Suzanna Dao MD Primary Care Provider Allergies Active Allergy Reactions Criticality Noted Date Comments Aspirin 11/30/2024 Penicillins 11/30/2024 Clopidogrel 11/30/2024 Medications ammonium lactate (AmLactin) 12 % lotion Apply topically if needed for dry skin. 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, CMS/HCC V28) (Primary Dx); Arthritis of both feet; PVD (peripheral vascular disease) (CMS/HCC V24); Hammertoes of both feet; Dermatophytosis, nail from Last 3 Months Social History Tobacco Use Types Packs/Day Years [...] Care Team (Late st Contact Info) Description 09/26/2025 11:00 AM EST Office Visit Orthopedic Surgery - [place] [address] [facility] [address] [place] [phone] Jose Cannon DPM [address] [facility] 250 [place] [address] Health Maintenance Due Date Last Done Comments [...] [place] [facility] Care Teams Operating Room Nurse Relationship Specialty Start Date End Date Suzanna Dao MD [address] [place] [phone] PCP - General Internal Medicine 10/11/24
--- OUTSIDE RECORDS SUMMARY | 2025-07-19 12:52 | XMS_ITS | Encounter Summary ---
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 06/09/25 documented as of this encounter
--- OUTSIDE RECORDS SUMMARY | 2025-07-19 12:52 | XMS_ITS | Encounter Summary ---
Author Organization [employer] Address [address] [facility] 7 [place] [address] Care Team Providers Care Airplane Tester Name Role Phone Suzanna Dao MD Primary Care Provider + Reason for Visit * Reason Comments Med Refill Encounter Details Date Type Department Care Team ([facility] st Contact Info) Description 04/11/2024 Refill [facility] MEDICINE 230 [place], [place] [phone] Suzanna Dao MD 230 [place] [address] Social History Tobacco Use Types Packs/Day Years [...] on filedocumented in this encounter Care Teams Airplane Tester Relationship Specialty Start Date End Date Suzanna Dao MD [address] [place] [phone] PCP - General Family Medicine 07/21/19 [employer] 06/09/25 documented as of this encounter
--- OUTSIDE RECORDS SUMMARY | 2025-07-19 12:52 | XMS_ITS | Encounter Summary ---
Author Organization [employer] Address [address] [place] [address] 7 [place] [address] Care Team Providers Care Physician Internist Name Role Phone Suzanna Dao MD Primary Care Provider + Encounter Details Date Type Department Care Team ([facility] Contact Info) Description 12/24/2022 Orders Only [facility] MED & PEDS 505 [place] [address] Vickie Patel LPN Social History Tobacco Use [...] on filedocumented in this encounter Care Teams Physician Internist Relationship Specialty Start Date End Date Suzanna Dao MD [address] [place] [address] PCP - General Family Medicine 07/21/19 [employer] 06/09/25 documented as of this encounter
--- OUTSIDE RECORDS SUMMARY | 2025-07-19 12:52 | XMS_ITS | Encounter Summary ---
Author Organization [employer] Address [address] [facility] 7 [place] [address] Care Team Providers Care Pediatric Anesthesiologist Name Role Phone Suzanna Dao MD Primary Care Provider + Reason for Visit * Reason Onset Date Comments FYI 10/01/2023 Encounter Details Date Type Department Care Team ([facility] st Contact Info) Description 10/01/2023 Telephone [facility] MEDICINE 230 [place], [place] [phone] Suzanna Dao MD 230 [place], [place] [phone] FYI Social History Tobacco Use Types Packs/Day [...] 1:44 PM EST Tc from Eduardo with [facility] informing that pt was not able to be admitted today 10/01/2023 but hespoke with pt daughter Suzanna and are able to admit her tomorrow 10/02/2023 . documented in this encounter Plan of Treatment Not on file documented as of this encounter Visit Diagnoses Not on filedocumented in this encounter Care Teams Pediatric Anesthesiologist Relationship Specialty Start Date End Date Suzanna Dao MD [address] [place] [address] PCP - General Family Medicine 07/21/19 [employer] 06/09/25 documented as of this encounter
--- OUTSIDE RECORDS SUMMARY | 2025-07-19 12:52 | XMS_ITS | Encounter Summary ---
Author Organization [employer] Address [address] [place] [address] [place] [address] Care Team Providers Care Jigsawyer Name Role Phone Suzanna Dao MD Primary Care Provider + Reason for Visit * Reason Onset Date Comments Med Refill 11/20/2023 Encounter Details Date Type Department Care Team ([facility] st Contact Info) Description 11/20/2023 Refill [facility] MED[facility]INE 230 [place], [place] [phone] Marysol Dior MD 230 [place] [address] Social History Tobacco Use Types Packs/Day Years [...] on filedocumented in this encounter Care Teams Jigsawyer Relationship Specialty Start Date End Date Suzanna Dao MD [address] [place] [phone] PCP - General Family Medicine 07/21/19 [employer] 06/09/25 documented as of this encounter
--- OUTSIDE RECORDS SUMMARY | 2025-07-19 12:52 | XMS_ITS | Encounter Summary ---
Author Organization [employer] Address [address] [place] [address] 7 [place] [address] Care Team Providers Care Reed Repairer Name Role Phone Suzanna Dao MD Primary Care Provider + Reason for Visit * Reason Onset Date Comments [facility] 07/18/2025 I informed Suzanna, the patient's Health Care Proxy, that [facility] were ordered, and the patient may have them done at her convenience. The results are being requested by [facility]. She stated that she will take the patient to the lab this week. Encounter Details Date Type Department Care Team (Late st Contact Info) Description 07/18/2025 Telephone [facility] MEDICINE 230 [place] [address] Suzanna Dao MD 230 [place] [address] [facility] (I informed Suzanna, the patient's Health Care Proxy, that [facility] labs were ordered, and the patient may have them done at her convenience. The results are being requested by [facility]. She stated that she will take the patient to the lab this week.) Social History Tobacco Use Types Packs/Day Years [...] encounter Miscellaneous Notes * Telephone Encounter - Janet Clemons MA - 07/18/2025 1:41 PM EST I informed Suzanna, the patient's Health Care Proxy, that [facility] were ordered, and the patient may have them done at her convenience. The results are being requested by [facility]. She stated that she will take the patient to the lab this week. documented in this encounter Plan of Treatment Not on file documented as of this encounter Visit Diagnoses Not on filedocumented in this encounter Additional Health Concerns Assessment Noted Time PHQ-9 Depression Total Score: 025 11:35 AM EDT documented as of this encounter Care Teams Reed Repairer Relationship Specialty Start Date End Date Suzanna Dao MD 230 [place] [address] PCP - General Family Medicine 07/21/19 [employer] 06/09/25 documented as of this encounter
--- OUTSIDE RECORDS SUMMARY | 2025-07-19 12:52 | XMS_ITS | Clinical Summary ---
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) (HCC) TAKE 1 TABLET BY MOUTH EVERY MORNING [...] Plan (01/07/2024 2:01 PM EDT): Followed by center maker hand, she is O2 dependent, continue at 3L NC Intermittent claudication 01/07/2024 Hallucinations 01/07/2024 Assessment & Plan (01/07/2024 2:02 PM EDT): Could be related to depression/psychotic event vs metabolic form hypoglycemia or hypoxia Order labs to r/o worm infestation or other metabolic conditions Fu closely w/ mental health prescriber Stage 3b chronic kidney disease (CMS/HCC) 2022 Overview (01/07/2024): FU by [facility], Dr Prado Assessment & Plan (01/07/2024 2:01 PM EDT): 2/2 to DM and HTN Check GFR and fu w hand sewer shoes every yr () Assessment & Plan (08/05/2023 10:55 AM EST): GFR has remained stable 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 It may improve patient's mental health condition and socialization, therefore decreasing morbidity and mortality Assessment & Plan (09/14/2024 1:48 PM EST): [...] remained controlled Refer back to cardiology in [facility] with Dr. Abdul for the f/u Dependence on supplemental oxygen 10/22/2022 Assessment & Plan (05/15/2025 5:46 PM EDT): Due to ILD + asthma Cont 1-2L O2 permanently. Continue close follow-up with center maker hand Assessment & Plan (10/08/2023 11:20 AM EST): [...] EST): Needs toenail trimming, refer to new Filament Maker. Neuropathy of left foot 10/22/2022 Recurrent major depression 10/22/2022 Assessment & Plan (05/15/2025 5:45 PM EDT): She has psychotic symptoms at times and depression seems to be getting worse with neurocognitive changes. Continue close follow-up with psychiatry, continue Namenda and sertraline Patient needs assistance on ADLs 30/03, continue home care with daughter as a primary caregiver, needs a DIP LUBE OPERATOR Assessment & Plan (09/14/2024 1:47 PM EST): [...] EDT): Oxygen dependent Continue close fu with center maker hand No change in medications Senile osteoporosis 10/22/2022 Snoring 10/22/2022 Tension-type headache 10/22/2022 Tremor of both hands 10/22/2022 Type 2 diabetes mellitus 10/22/2022 Assessment & Plan (05/15/2025 5:44 PM EDT): Controlled. A1c is at goal. Continue on Januvia counseled re more frequent low calorie/carb meals. Check fgstk 1x-2x daily Encouraged physical activity as tolerated. FU in 4 months. Assessment & Plan (09/14/2024 11:06 AM EST): Controlled, Pt most likely postprandial hyperglycemia, discussed with pt control of meal portions. Continue on Januvia 25 mg. Counseled re more frequent low calorie/carb meals. Check fgstk once daily Encouraged physical activity as tolerated. FU in 3 months. Referral to new business development associate. Reminded to schedule eye clinic appointment. She [...] appointment. Mild vascular dementia with mood disturbance (CM S/HCC) 10/22/2022 Assessment & Plan (05/17/2025 2:47 PM EDT): Pt has no further hallucinations. Continue on Namenda + HTN & DM medications + Aspirin. She was discharged by neurology, will prefer as needed only Pt lives with her daughter, feels safe at home and able to reach out if need be. I will order a home safety evaluation so that she can have adequate DMEs to prevent falls, improve mobility and decrease morbidity and mortality. She probably needs a semiautomatic bed to help with dressing in the bed and reposition when patient has episodes of getting locked. She also needs assistance with tranfers, sometimes may be a walker (with wheels and a a basket for O2 tank) , others may be a transfer wheelchair when has exacerbation of leg pain and has to be brought to appts, etc. Incontinence supplies to be ordered Assessment & Plan (09/14/2024 11:09 AM EST): [...] up to date Malignant neoplasm of cervix (CMS/HCC) 04/20/2023 09/14/2024 Acute pain of left knee [...] PM EDT): Continue Symbicort. FU closely with center maker hand Neck pain 10/22/2022 05/15/2025 Pneumonia due to COVID-19 virus 10/22/2022 10/08/2023 Rib pain 10/22/2022 05/15/2025 Encounters Date Type Department Care Team Description 07/18/2025 Telephone [facility] [address], [place] [phone] Suzanna Dao MD 07/18/[address] [facility] [address] [place] [address] Suzanna Dao MD [facility] (I informed Suzanna, the patient's Health Care Proxy, that [facility] were ordered, and the patient may have them done at her convenience. The results are being requested by [facility]. She stated that she will take the patient to the lab this week.) 07/10/2025 Telephone [facility] [address], [place] [phone] Adelia Tran, mingle operator Orders 07/07/[address] [facility] [address], [place] [phone] Suzanna Dao MD [employer] 07/05/[address] [address] Suzanna Dao MD Durable Medical Equipment 06/28/[address] [phone] Suzanna Dao MD FYI 06/26/[address] [address] Suzanna Dao MD FYI 06/20/[address] [address] Suzanna Dao MD FYI 06/15/[address] [address] Suzanna Dao MD verbal orders 06/06/[address] [address] Suzanna Dao MD Durable Medical Equipment 06/06/[address] [address] Suzanna Dao MD Durable Medical Equipment 05/29/[address] [address] Suzanna Dao MD Prior Authorization 05/23/[address] [address] Adelia Tran RN [facility] REFERRAL 05/16/[address] [address] Suzanna Dao MD Durable Medical Equipment (DME Orders: Multiple Items) 05/15/2025 10:30 AM EDT Office Visit [address] [phone] Suzanna Dao MD Type 2 diabetes mellitus with stage 3 chronic kidney disease, without long-term current use of insulin, unspecified whether stage 3a or 3b CKD (CMS/HCC) (Primary Dx); Hearing loss of right ear, unspecified hearing loss type; Incontinence of feces with fecal urgency; Recurrent major depressive disorder, in partial remission (CMS/HCC); 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); Dependence on supplemental oxygen; Dietary counseling; Exercise counseling; Class 1 obesity due to excess calories with serious comorbidity and body mass index (BMI) of 32.0 to 32.9 in adult 05/15/2025 Travel 05/13/2025 Travel 05/12/2025 Telephone [facility] [address] [place] [phone] Suzanna Dao MD podiatry referral 05/12/[address] [address] Suzanna Dao MD Chart Prep 05/09/2025 11:15 AM EDT Office Visit [facility] [address] [place] [phone] Mary Grace Suarez, AMBER Type 2 diabetes mellitus without ophthalmic manifestations ([facility]) (Primary Dx); Combined forms of age-related cataract of both eyes; Open angle with borderline findings, high risk, bilateral; Presbyopia 05/09/2025 Travel 05/04/[address] [address] Suzanna Dao MD Durable Medical Equipment 05/04/2025 Patient Outreach [address] [address] Suzanna Dao MD Pre-visit Planning (SDOH screening completed on 09/08/2024) 04/27/[address] [address] Suzanna Dao MD Durable Medical Equipment 04/20/[address] [phone] Suzanna Dao MD Durable Medical Equipment (Multiple items) from Last 3 Months Immunizations Immunization Administration [...] Last Done Comments Hepatitis C Screening 1968 COVID-19 Vaccine ( season) 2025 09/14/2024, 08/05/2023, 06/25/2022, Additional history exists Influenza Vaccine (#1) 2025 , 08/05/2023, 08/05/2023, Additional history exists SDOH Screening 09/08/2025 09/08/2024 Depression Monitoring 11/12/2025 05/15/2025, 025 Diabetes: Hemoglobin A1C 11/12/2025 025, 09/14/2024, 08/05/2023, Additional history exists Alcohol/Substance Use Screening 05/15/2026 05/15/2025 Diabetes: Foot Exam 05/15/2026 05/15/2025, 05/15/2025, 05/15/2025, Additional history exists Lipid Panel 05/15/2026 05/15/2025, 072 03/2021, 09/06/2020 Tobacco Screening 05/15/2026 05/15/2025 Eye Exam 05/09/2027 [...] Procedure Name Priority Date/Time Associated Diagnosis Comments LIPID PANEL, STANDARD Routine 05/15/2025 11:47 AM EDT HEPATIC FUNCTION PANEL Routine 05/15/2025 11:47 AM EDT POCT GLYCATED HEMOGLOBIN, TOTAL Routine 05/15/2025 11:00 AM EDT Type 2 diabetes mellitus with stage 3 chronic kidney disease, without long-term current use of insulin, unspecified whether stage 3a or 3b CKD (CMS/HCC) POCT GLUCOSE Routine 05/15/2025 11:00 AM EDT Type 2 diabetes mellitus with stage 3 chronic kidney disease, without long-term current use of insulin, unspecified whether stage 3a or 3b CKD (CMS/HCC) from Last 3 Months Results * Hepatic Function Panel (05/15/2025 11:47 AM EDT) Bilirubin, Total 0.5 0.0 - 1.0 mg/dL [facility] Bilirubin, Direct 0.1 0.0 - 0.5 mg/dL [facility] Aspartate Amino Transferase 23 5 - 31 U/L [facility] Alanine Aminotransferase 12 0 - 31 U/L [facility] Total Protein 6.9 6.5 - 8.0 g/dL [facility] Albumin Level 4.1 3.5 - 5.0 g/dL [facility] Alkaline Phosphatase 86 39 - 117 U/L [facility] 05/15/2025 11:4 7 AM EDT 05/15/2025 1:56 PM EDT us Suzanna Dao MD LAB BLOOD ORDERABLES Fin al Result [facility] [address] [place] [phone] * (ABNORMAL) Lipid Panel, Standard (05/15/2025 11:47 AM EDT) Triglycerides 187(H) <150 mg/dL [facility] Comment:Desirable Triglyceri de: less than 150 mg/dLBorderline High Triglyceride 150-199 mg/dLHigh Triglyceride: 200-499 mg/dLVery High Triglyceride: greater than or equal to 5OO mg/dL Cholesterol 176 <200 mg/dL [facility] Comment:Desirable Cholestero l: less than 200 mg/dLBorderline High Cholesterol: 200-239 mg/dLHigh Cholesterol: greater than 239 mg/dL LDL Cholesterol Calculated 101(H) <100 mg/dL [facility] Comment:Desirable LDL: less than 100 mg/dLNear Optimal/Above Optimal LDL: 110- 129 mg/dLBorderline High LDL: 130-159 mg/dLHigh LDL: 160-189 mg/dLVery High LDL: greater than or equal to 190 mg/dL HDL Cholesterol 38(L) >40 mg/dL [facility] Comment:Desirable HDL: great er than 40 mg/dL Note: This HDL assay may give artificially low results in patients with liver disease. 05/15/2025 11:4 7 AM EDT 05/15/2025 1:56 PM EDT Suzanna Dao MD LAB BLOOD ORDERABLES Fin al Result [facility] [address] [place] [phone] * (ABNORMAL) POCT Hgb A1c (05/15/2025 11:00 AM EDT) Hemoglobin A1C 6.5(A) 4.0 - 5.7 % QC Media Lot # [id number] Lot# Expiration Date [id number] Blood 05/15/2025 11:0 0 AM EDT Suzanna Dao MD POINT OF CARE TEST ENTER /EDIT ORDERABLES Final Result * POCT Glucose (05/15/2025 11:00 AM EDT) Glucose Blood, POC 117 60 - 200 mg/dL [employer] Lot # [id number] Lot# Expiration Date [id number] Blood Capillary blood specimen / Unknown 05/15/2025 11:00 AM EDT Suzanna Dao MD POINT OF CARE TEST ENTER /EDIT ORDERABLES Final Result from Last 3 Months Insurance [facility] ST[employer] [address] [id number] Advance Directives Documents on File Type Date Recorded Patient Photo Lab Manager Expl anation Advance Directives and Living Will 11/11/2024 3:19 PM Health Care Proxy Care Teams Cable Tender Relationship Specialty Start Date End Date Suzanna Dao MD [address] [place] [phone] PCP - General Family Medicine 07/21/19 [employer] 06/09/25
--- OUTSIDE RECORDS SUMMARY | 2025-07-19 12:52 | XMS_ITS | Encounter Summary ---
Author Organization [employer] Address [address] [facility] 7 [place] [address] Care Team Providers Care Spindle Setter Name Role Phone Suzanna Dao MD Primary Care Provider + Reason for Visit * Reason Onset Date Comments Med Refill 11/20/2023 Encounter Details Date Type Department Care Team ([facility] st Contact Info) Description 11/20/[address] [facility] [address] [place], [place] [phone] Niecy Nunez MD [address] [place], [place] [phone] Social History Tobacco Use Types Packs/Day Years [...] on filedocumented in this encounter Care Teams Spindle Setter Relationship Specialty Start Date End Date Suzanna Dao MD [address] [place] [phone] PCP - General Family Medicine 07/21/19 [employer] 06/09/25 documented as of this encounter
--- OUTSIDE RECORDS SUMMARY | 2025-07-19 12:52 | XMS_ITS | Encounter Summary ---
Author Organization [employer] Address [address] [facility] 7 [place] [address] Care Team Providers Care Graphic Arts Technician Name Role Phone Suzanna Dao MD Primary Care Provider + Encounter Details Date Type Department Care Team ([facility] st Contact Info) Description 07/18/2025 Telephone [facility] [address] [place] [address] Suzanna Dao MD [address] [place], [place] [phone] Social History Tobacco Use Types Packs/Day Years [...] encounter Miscellaneous Notes * Telephone Encounter - Adelia Tran RN - 07/18/2025 2:37 PM EST Noted * Telephone Encounter - Allyson Chapa LPN - 07/18/2025 1:35 PM EST Telephone call returned to [facility] with [employer]. [facility] sending message as FYI only that patient has ended services with their company as she is nowattending Day Program. documented in this encounter Plan of Treatment Not on file documented as of this encounter Visit Diagnoses Not on filedocumented in this encounter Additional Health Concerns Assessment Noted Time PHQ-9 Depression Total Score: 025 11:35 AM EDT documented as of this encounter Care Teams Graphic Arts Technician Relationship Specialty Start Date End Date Suzanna Dao MD [address] [place] [phone] PCP - General Family Medicine 07/21/19 [employer] 06/09/25 documented as of this encounter
[2025-07-22 08:28] LABS: TS Negative Control Passed; TS Panel A 0; TS Panel B 1; TS Positive Control Passed; TSpotTB Negative (Negative)
== END 2025-07-19 10:42 | disposition home or self-care (01) ==
LOC: HO.HHCL 10:41
PROVIDERS: PCP Internal Medicine; Visit Provider Internal Medicine
DX: Z11.1 Encounter for screening for respiratory tuberculosis (principal)
CPT/HCPCS: 36415; 86481